=== PATIENT | female | born 1975 | race Caucasian/White ===

== ENCOUNTER 2023-07-11 07:49 | Outpatient (OUT) | payer BC, SELFPAY ==
--- NOTE | 2023-07-11 08:02 | CT_ITS ---
The [address] [address] Patient Name: BENJAMÍN GRIGGS MRN: [id number] date: 1975 Sex: F Assigned Patient Location: CT Current Patient Location: CT Accession/Order Number: [id number] Exam Date: 07/11/2023 08:05 Report Date: 07/11/2023 10:52 At the request of: MIKEY MARAVILLA Procedure: CT chest wo con EXAM: CT chest wo con HISTORY: Pulmonary Nodule R91.1 TECHNIQUE: No IV contrast Dose reduction techniques were achieved by using automated exposure control and/or adjustment of mA and/or kV according to patient size and/or use of iterative reconstruction technique. COMPARISON:CT of the lower chest and abdomen 03/02/2022 FINDINGS: THORACIC INLET: Unremarkable CHEST WALL/AXILLA: No axillary lymphadenopathy HEART: Heart size is normal. The thoracic aorta is normal. No aneurysm. No pericardial effusion. MEDIASTINUM: No significant hilar or mediastinal lymphadenopathy. Incidental calcified mediastinal and left hilar lymph nodes. PLEURAL CAVITY: No pleural effusion or thickening is noted. LUNGS: No lobar consolidation. No groundglass opacities. Incidental scattered calcified granulomas with dominant granuloma left lower lobe subpleural region axial image 70 within central calcification measuring 8 mm benign with no follow-up required. Scattered subpleural pulmonary nodules are noted within the left upper lobe largest axial image 29 solid measures 3 mm. Scattered pulmonary nodules noted left lower lobe subpleural region largest axial image 78 measures 3 mm present previously. VISUALIZED UPPER ABDOMEN: Limited due to lack of intravenous contrast. BONES: No acute findings. CT/CT chest wo con IMPRESSION:Pulmonary nodules as described measuring 3 mm and smaller in size with multiple calcified granulomas noted. Findings likely benign. As per Fleischner criterion in a low-risk patient no follow-up is required. In a high-risk patient an optional CT chest without contrast in one year is recommended Electronically authenticated by: ZAHIDA MERAZ Date: 07/11/2023 10:52
== END 2023-07-11 07:50 | disposition home or self-care (01) ==
LOC: CT 07:51
PROVIDERS: PCP Family Medicine; Visit Provider Family Medicine
DX: R91.1 Solitary pulmonary nodule (principal)
CPT/HCPCS: 71250

== ENCOUNTER 2023-07-13 07:48 | Outpatient (OUT) | payer BC, SELFPAY ==
--- NOTE | 2023-07-13 07:52 | US_ITS ---
The [address] [address] Patient Name: BENJAMÍN GRIGGS MRN: [id number] date: 1975 Sex: F Assigned Patient Location: US Current Patient Location: US Accession/Order Number: [id number] Exam Date: 07/13/2023 08:05 Report Date: 07/13/2023 09:00 At the request of: MIKEY MARAVILLA Procedure: US renal BI EXAM: US renal BI HISTORY: . Kidney Stone N20.0 . COMPARISON: None. TECHNIQUE: Grayscale and color imaging was performed FINDINGS: Scanning of the filled bladder demonstrates no masses. No bladder wall thickening was noted. Bladder volume was 271 cc. Right kidney measures 10.6 x 5.8 x 4.4 cm. Color-flow is noted. No solid renal cortical masses or hydronephrosis is noted. Left kidney measures 11.2 x 4.7 x 6.3 cm. Color-flow is noted. No solid renal cortical masses or hydronephrosis is noted. US/US renal BI IMPRESSION: 1. Normal ultrasound of the kidneys. 2. Normal-appearing bladder. Electronically authenticated by: MIKEY GOMES Date: 07/13/2023 09:00
== END 2023-07-13 07:49 | disposition home or self-care (01) ==
LOC: US 07:48
PROVIDERS: PCP Family Medicine; Visit Provider Family Medicine
DX: N20.0 Calculus of kidney (principal)
CPT/HCPCS: 76775

== ENCOUNTER 2023-10-12 19:02 | Outpatient (REF) | payer OTHER, SELFPAY ==
--- OUTSIDE RECORDS SUMMARY | 2023-10-12 19:05 | XMS_ITS | CCD ---
Author Name Unknown Address [address] [facility] [address] [place] [address] Organization [facility] Care Team Providers Care Clinical Program Director Name Role Phone PHYSICIAN, DEFAULT Unavailable Unavailable PHYSICIAN, DEFAULT Unavailable Unavailable RENITA, DR JENSEN Primary Care Unavailable MICHAEL, DR EMELYN Burns Admitting Unavailable MICHAEL, DR EMELYN Burns Attending Unavailable MICHAEL, DR EMELYN Burns Consulting Unavailable HARLAN HU Consulting Unavailable ABDOULASIGiovana ., DR PERRY Admitting Unavaileneida e KARASIK ., DR PERRY Attending Shilpi MARAVILLA, DR JENSEN Primary Care Unavailable JANES ., DR PERRY Consulting Unavaileneida e TYRESE, DR TUNG Burns Consulting Unavailable KARASIK ., DR PERRY Admitting Unavailabl e KARASIK ., DR PERRY Attending Shilpi MARAVILLA, DR JENSEN Primary Care Unavailable JANES ., DR PERRY Consulting Mikey Layton SAIJ GOMES Attending Unavailable SAJI GOMES Attending Unavailable SAJI GOMES Referring Unavailable Barb Rain Attending Unavailable Mikey Maravilla Referring Unavailable Mikey Maravilla Primary Care Physician [phone] Allergies Allergy Classification Reported Allergen(s) Allergy Type Date of Onset Reaction(s) Facility (4 sources) Omeprazole Drug Allergy did not control heartburn 2021 [employer] Other (4 sources) Seasonal allergy Propensity to adverse reactions Unknown [facility] Other Medications Current Medications Medication Drug Class(es) Dates Sig (Normalized) Sig (Original) amLODIPine 5 mg oral tablet (5 sources) Dihydropyridine Calcium Channel Braeden Start: 10-11-2023 amLODIPine 5 mg Tab Refills(s) 0 Start Date: 10/11/23 Status: Ordered take 1 tablet by mouth once beverly y amLODIPine Besylate 5 MG TAKE 1 TABLET BY MOUTH EVERY DAY Active cetirizine hydrochloride 10 mg oral tablet (4 sources) Histamine-1 Receptor Antagonist take 1 tablet by mouth every twenty-four hours ZyrTEC Allergy 10 MG 1 tablet as needed Orally Once a day prn Active Co-Enzyme Q10 200 MG (1 source) Start: 08-17-20 take 1 capsule by mouth once daily Co-Enzyme Q10 200 MG 1 capsule Orally qd Jul, Active CoQ10 (1 source) Start: 10-11-19 CoQ10 Oral, Daily, Refills(s) 0 Start Date: 10/11/23 Status: Ordered Multi Vitamin+ (1 source) Start: 10-11-19 Multi Vitamin+ Refill(s) 0 Start Date: 10/11/23 Status: Ordered Multivitamin preparation (2 sources) Multivitamin Act aneesh pantoprazole 40 mg delayed release oral tablet (5 sources) Proton Pump Inhibitor Start: 10-11-[address] Tab Refills(s) 0 Start Date: 10/11/23 Status: Ordered take 1 tablet by joe once daily 30 minutes before mealtime Pantoprazole Sodium 40 MG TAKE 1 TABLET BY MOUTH ONCE A DAY 30 MINUTES BEFORE A MEAL for 90 days Active 24 hr propranolol hydrochloride 60 mg extended release oral capsule (3 sources) beta-Adrenergic Braeden Start: 10-11-2023 propra nolol 60 mg Cap-ER Refills(s) 0 Start Date: 10/11/23 Status: Ordered Start: 08-17-2023 take 1 capsule by mo [facility] once daily in the morning Inderal LA 60 MG 1 capsule Orally qd am for 30 days Jul, Active rosuvastatin calcium 5 mg oral tablet (3 sources) HMG-CoA Reductase Inhibitor Start: 10-11-2023 rosuvastatin 5 mg Ta b Refills(s) 0 Start Date: 10/11/23 Status: Ordered Start: 08-17-2023 take 1 tablet by joe every twenty-four hours Rosuvastatin Calcium 5 MG 1 tablet Orally Once a day for 30 days Jul, Active ubidecarenone 200 mg oral capsule (1 source) Start: 08-17-2023 take 1 capsule by mouth every twenty-four hours Co-Enzyme Q10 200 MG 1 capsule Orally qd 30 Nov, 2023 Active Completed/Discontinued Medications Medication Drug Class(es) Dates Sig (Normalized) Sig (Original) cefTRIAXone (4 sources) Cephalosporin Antibacterial Start: 10-30-2019 Rocephin 500 mg Oct, 1 g Problems Active Problems Problem Classification Problem Date Documented Date Episodic/Chronic Calculus of urinary tract (10 sources) Calculus of ureter; Translations: [Personal history of urinary calculi] Onset: 03-04-2022 Episodic Cardiac dysrhythmias (1 source) Palpitations Episodic Deficiency and other anemia (1 source) Anemia, unspecified Episodic Deficiency and other anemia (1 source) Anemia 10-11-2023 Episodic Diabetes mellitus without complication (2 sources) Hyperglycemia, unspecified; Translations: [Hyperglycemia] Episodic Disorders of lipid metabolism (6 sources) Hyperlipidemia; Translations: [Hyperlipidemia, unspecified] Chronic Esophageal disorders (6 sources) Gastro-esophageal reflux disease without esophagitis; Translations: [Gastroesophageal reflux disease] Onset: 03-04-2022 Chronic Essential hypertension (1 source) Hypertensive disorder 10-06-2023 Chronic Genitourinary symptoms and ill-defined conditions (2 sources) Stress incontinence (female) (male); Translations: [Genuine stress incontinence] Onset: 10-11-2023 Chronic Genitourinary symptoms and ill-defined conditions (3 sources) Hematuria, unspecified; Translations: [Microscopic hematuria] Onset: 10-11-2023 Episodic Headache; including migraine (5 sources) Migraine; Translations: [Migraine, unspecified, not intractable, without status migrainosus] Chronic Immunizations and screening for infectious disease (1 source) Encounter for screening for human papillomavirus (HPV); Translations: [ENC SCREENING HUMAN PAPILLOMAVIRUS] Onset: 10-11-2022 Episodic Other aftercare (2 sources) Other detention (current) drug therapy; Translations: [OTH HALF-WAY CURRENT DRUG THERAPY] Onset: 03-04-2022 Episodic Other circulatory disease (2 sources) Elevated blood-pressure reading, without diagnosis of hypertension Episodic Other lower respiratory disease (4 sources) Solitary nodule of lung; Translations: [Solitary pulmonary nodule] Episodic Other lower respiratory disease (2 sources) Solitary pulmonary nodule Episodic Other lower respiratory disease (1 source) Nodule of lung 10-06-2023 Episodic Other nutritional; endocrine; and metabolic disorders (4 sources) Obese class I; Translations: [Body mass index (BMI) 33.0-33.9, adult] Chronic Other nutritional; endocrine; and metabolic disorders (2 sources) Abnormal weight gain Episodic Other screening for suspected conditions (not mental disorders or infectious disease) (8 sources) Encounter for screening mammogram for malignant neoplasm of breast; Translations: [Encounter for screening for malignant neoplasm of cervix] Onset: 10-07-2022 Episodic Residual codes; unclassified (1 source) Family history of malignant neoplasm of breast; Translations: [FAMILY HX MALIG NEOPLASM OF BREAST] Onset: 12-10-2022 Episodic Residual codes; unclassified (1 source) Family history of malignant neoplasm of other organs or systems; Translations: [FAM HX MALIG NEOPLASM OTH ORGN/SYS] Onset: 12-10-2022 Episodic Past or Other Problems Problem Classification Problem Date Documented Da te Episodic/Chronic Abdominal pain (3 sources) Unspecified abdominal pain; Translations: [UNSPECIFIED ABDOMINAL PAIN] Onset: 03-02-2022 Episodic Results Test Name Value Interpretation Reference Range Facil ity RAD - Ultrasound Reporton RAD - Ultrasound Report [id number] [id number] Normal [facility] MG MAMM SCREEN 3D JAMA CADon 12-01-2022 MG MAMM SCREEN 3D JAMA CAD Patient: BENJAMÍN GRIGGS Exam Date: 12/01/2022 : 1975 Gender:F Ordering : DR ORLANDO AKINS . Admission #: Family : Order #: [id number] CLICK HERE TO VIEW EXAM RADIOLOGY REPORT PROCEDURE: MAMMOGRAM SCREENING 3D BILATERAL CAD COMPARISON: MG MAMM SCREEN JAMA W CAD, 11/02/2020. MG MAMM SCREEN JAMA W CAD, 07/11/2019. MG MAMM JAMA SCRN W CAD DIG, 06/15/2015. MG MAMM SCREEN 3D JAMA CAD, 11/19/2021. INDICATIONS: Screening mammography Calculator Name NCI Breast Cancer Risk Assessment Tool 5 Year Breast Cancer Risk 1.10% Lifetime Breast Cancer Risk 11.30% Personal Breast Cancer No Personal Ovarian Cancer No Treatments None Family Cancers Grandmother-paternal with breast cancer at age 60; Grandmother-maternal with melanoma cancer at age 55. LOCATION: [facility] BREAST COMPOSITION: Extremely dense, which lowers the sensitivity of mammography. FINDINGS: DIAGNOSTIC CATEGORY 1--NEGATIVE. RIGHT BREAST: No significant suspicious finding. No significant change has occurred. LEFT BREAST: No significant suspicious finding. No significant change has occurred. RECOMMENDATIONS: ROUTINE MAMMOGRAM AND CLINICAL EVALUATION IN 12 MONTHS. PLEASE NOTE: A NORMAL MAMMOGRAM DOES NOT EXCLUDE THE POSSIBILITY OF BREAST CANCER. A CLINICALLY SUSPICIOUS PALPABLE LUMP SHOULD BE BIOPSIED. Dictated by: Tung St M.D. on 12/01/2022 at 14:08 Approved by: Tung St M.D. on 12/01/2022 at 14:12 Normal [facility] PAP ACOG PANEL 2: 30 to 65on 10-12-2022 . . Normal [facility] Comment on above: Result Comment: Perf ormed at: WB Performed By: #### [id number] #### [facility] [address] [address] [address] Sean Huynh Age Gdln ACOG Testing 30-65 Normal [facility] Comment on above: Performed By: #### [id number] #### [facility] [address] [address] [address] Sean Huynh DIAGNOSIS: Comment Normal [facility] Comment on above: Result Comment: NEGA TIVE FOR INTRAEPITHELIAL LESION OR MALIGNANCY. Performed at: WB Performed By: #### [id number] #### [facility] [address] [address] [address] Sean Huynh HPV Aptima Negative Normal Negative [facility] Comment on above: Result Comment: This nucleic acid amplification test detects fourteen high-risk HPV types (16,18,31,33,35,39,45,51,52,56,58,59,66,68) without differentiation. Performed at: =G Performed By: #### [id number] #### [facility] [address] [address] [address] Sean Huynh HPV Genotype Reflex Comment Normal [facility] Comment on above: Result Comment: Crit eria not met, HPV Genotype not performed. Performed at: WB Performed By: #### [id number] #### [facility] [address] [address] [address] Sean Huynh Methodology: Comment Normal [facility] Comment on above: Result Comment: This liquid based ThinPrep(R) pap test was screened with the use of an image guided system. Performed at: WB Performed By: #### [id number] #### [facility] [address] [place] [address] Dr. Sean Huynh Note: Comment Normal [facility] Comment on above: Result Comment: The Pap smear is a screening test designed to aid in the detection of premalignant and malignant conditions of the uterine cervix. It is not a diagnostic procedure and should not be used as the sole means of detecting cervical cancer. Both false-positive and false-negative reports do occur. . Performed at: WB Performed By: #### [id number] #### [facility] [address] [place] [address] Dr. Sean Huynh Performed by: Comment Normal [facility] Comment on above: Result Comment: Mariangel Blancas, Painter Decorator (ASCP) Performed at: WB Performed By: #### [id number] #### [facility] [address] [place] [address] Dr. Sean Huynh Specimen adequacy: Comment Normal [facility] Comment on above: Result Comment: Sati sfactory for evaluation. No endocervical component is identified. Performed at: WB Performed By: #### [id number] #### [facility] [address] [place] [address] ABD/PELVIS WO CONon 03-03 CT ABD/PELVIS WO CON EXAM: CT abdomen and Pelvis without contrast dated 03/02/2022 9:36 PM EDT HISTORY: 46 years old Female with left flank pain. Nausea and vomiting. COMPARISON STUDY: None available at time of dictation. TECHNIQUE: Multidetector spiral CT of the abdomen and pelvis was performed from lung bases to pubic symphysis. Imaging was performed without IV contrast. Axial, coronal and sagittal multiplanar reformats were obtained from the axial data set by the technologist. Dose reduction techniques were achieved by using automated exposure control and/or adjustment of mA and/or kV according to patient size and/or use of iterative reconstruction technique. FINDINGS: Evaluation of solid organs is limited due to lack of intravenous contrast use. Lung Bases: Calcified sequela of prior granulomatous disease. Minimal bibasilar atelectatic changes are noted. 2 mm nodular foci on image 9 and 19 of series 3 along the left pleural surface suggests atelectasis. Nodules are felt to be less likely. Similar 2 mm nodule on image 17 of series 3 on the left posteriorly. If indicated consider follow-up per Fleischner criteria. Liver: The liver is normal in size. No focal lesions. Gallbladder and Biliary Tree: Unremarkable Spleen: Unremarkable Pancreas: The pancreas is grossly normal in appearance. Although no significant surrounding inflammation or edema is identified, trace adjacent haziness may be present on images 35 through 41 series 3. This may be partially due to volume averaging or artifact however, consider serum lipase correlation for very subtle or early pancreatitis. Adrenal Glands: Unremarkable Kidneys: Bladder is mildly thickened. The right kidney demonstrates no hydronephrosis. There is no evidence of nephrolithiasis in the right kidney. Lack of intravenous contrast lowers sensitivity however, no definite focal lesion is seen. Left kidney demonstrates moderate hydroureteronephrosis. There is perinephric and periureteric edema noted on the left. Prominence of the left ureter can be seen on images 78 through 118 series 3 and extends to the ureterovesicular junction where there is a stone noted measuring approximately 3 mm at the terminal ureter/UVJ. Bowel: The stomach is grossly normal in appearance. Small bowel and colon are normal in caliber and distribution. The appendix is normal without findings of acute appendicitis identified. Stool is noted in the colon. Slightly thickened or underdistended enteric bowel is noted in the left abdomen, which may be partially due to peristalsis however mild enteritis of infectious or inflammatory etiology is a diagnostic consideration. Abdominal Wall and Mesentery: Unremarkable. Vasculature: The visualized abdominal aorta is normal in size and caliber. Evaluation of abdominal and pelvic vessels is limited due to lack of intravenous contrast. Pelvic Organs: Surgically absent. Nonspecific calcification noted on image 139 series 3 in the left anterior pelvic region. Post surgical changes overlie the ventral pelvic wall. Musculoskeletal: No aggressive focal bony lesions, acute fractures or dislocation. Mild annular calcification at L5-S1 posteriorly. There is a leftward scoliosis noted to the lumbar spine centered at approximately L4 and a rightward compensatory curvature at the thoracolumbar junction. IMPRESSION: Acute obstructive uropathy on the left secondary to a 3 mm stone at the ureterovesicular junction/terminal ureter. Consider laboratory correlation for infection and urological consultation. Mild infectious or inflammatory enteritis may be present as above. Nonacute findings as noted Electronically authenticated by: HARLAN HU Date: 2022-03-02 23:28 Normal [facility] CBC AUTO DIFFon 03-02-2022 BASO # 0.1 103/ul Normal 0.0-0.1 [facility] Comment on above: Performed By: #### C BC #### [facility] [address] [place] [address] Dr. Sean Huynh Basophils/100 WBC (Bld) 0.8 % Normal 0.2-2.0 [facility] Comment on above: Performed By: #### C BC #### [facility] [address] [place] [address] Dr. Sean Huynh EO # 0.1 103/ul Normal 0.0-0.7 [facility] Comment on above: Performed By: #### C BC #### [facility] [address] [place] [address] Dr. Sean Huynh Eosinophils/100 WBC (Bld) 1.3 % Normal 0.9-7.0 [facility] Comment on above: Performed By: #### C BC #### [facility] [address] [place] [address] Dr. Sean Huynh Erythrocyte distribution width (RBC) [Ratio] 12.5 % Normal 11.0-15.0 [facility] Comment on above: Performed By: #### C BC #### [facility] [address] [place] [address] Dr. Sean Huynh Hematocrit (Bld) [Volume fraction] 37.4 % Normal 36.0-48.0 [facility] Comment on above: Performed By: #### C BC #### [facility] [address] [place] [address] Dr. Sean Huynh Hemoglobin (Bld) [Mass/Vol] 12.6 g/dL Normal 12.0-16.0 [facility] Comment on above: Performed By: #### C BC #### [facility] [address] [place] [address] Dr. eSan Huynh IG # 0.02 10e3/ul Normal 0.00-0.03 [facility] Comment on above: Performed By: #### C BC #### [facility] [address] [place] [address] Dr. Sean Huynh IG % 0.3 % Normal 0.0-0.5 [facility] Comment on above: Performed By: #### C BC #### [facility] [address] [place] [address] Dr. Sean Huynh LYMPH # 2.4 103/ul Normal 1.2-3.8 [facility] Comment on above: Performed By: #### C BC #### [facility] [address] [place] [address] Dr. Sean Huynh Lymphocytes/100 WBC (Bld) 31.6 % Normal 20.5-60.0 [facility] Comment on above: Performed By: #### C BC #### [facility] [address] [place] [address] Dr. Sean Huynh MANUAL DIFF REQ NO Normal [facility] Comment on above: Performed By: #### C BC #### [facility] [address] [place] [address] Dr. Sean Huynh MCH (RBC) [Entitic mass] 29.8 pg Normal 26.7-34.0 [facility] Comment on above: Performed By: #### C BC #### [facility] [address] [place] [address] Dr. Sean Huynh MCHC (RBC) [Mass/Vol] 33.7 g/dL Normal 29.9-35.2 [facility] Comment on above: Performed By: #### C BC #### [facility] [address] [place] [address] Dr. Sean Huynh MCV (RBC) [Entitic vol] 88.4 fL Normal 81.0-99.0 [facility] Comment on above: Performed By: #### C BC #### [facility] [address] [place] [address] Dr. Sean Huynh MONO # 0.8 103/ul Normal 0.3-0.8 [facility] Comment on above: Performed By: #### C BC #### [facility] [address] [place] [address] Dr. Sean Huyhn Monocytes/100 WBC (Bld) 10.0 % Normal 1.7-12.0 [facility] Comment on above: Performed By: #### C BC #### [facility] [address] [place] [address] Dr. Sean Huynh NEUT # 4.3 103/ul Normal 1.4-6.5 [facility] Comment on above: Performed By: #### C BC #### [facility] [address] [place] [address] Dr. Sean Huynh Neutrophils/100 WBC (Bld) 56.0 % Normal 43.0-75.0 [facility] Comment on above: Performed By: #### C BC #### [facility] [address] [place] [address] Dr. Sean Huynh Platelet mean volume (Bld) [Entitic vol] 10.5 fL Normal 9.5-13.5 [facility] Comment on above: Performed By: #### C BC #### [facility] [address] [place] [address] Dr. Sean Huynh PLT 321 103/ul Normal 150-450 [facility] Comment on above: Performed By: #### C BC #### [facility] [address] [place] [address] Dr. Sean Huynh RBC 4.23 106/ul Normal 4.20-5.40 [facility] Comment on above: Performed By: #### C BC #### [facility] [address] [place] [address] Dr. Sean Huynh WBC 7.7 103/ul Normal 4.0-11.0 [facility] Comment on above: Performed By: #### C BC #### [facility] [address] [place] [address] Dr. Sean Huynh ER URINE PROFILEon 2 Bilirubin Ql (U) Negative Normal NEGATIVE The [facility] Comment on above: Performed By: #### E RUR #### [facility] [address] [place] [address] Dr. Sean Huynh Clarity (U) CLEAR Normal CLEAR [facility] Comment on above: Performed By: #### E RUR #### [facility] [address] [place] [address] Dr. Sean Huynh Color (U) LT. YELLOW Normal YELLOW [facility] Comment on above: Performed By: #### E RUR #### [facility] [address] [place] [address] Dr. Sean MCMAHON A micrscopic examination will be performed if indicated. Normal [facility] Comment on above: Performed By: #### E RUR #### [facility] [address] [place] [address] Dr. Sean Huynh Glucose Ql (U) Negative Normal NEGATIVE [facility] [place] Comment on above: Performed By: #### E RUR #### [facility] [address] [place] [address] Dr. Sean Huynh Hemoglobin Ql (U) Negative Normal NEGATIVE [facility] Comment on above: Performed By: #### E RUR #### [facility] [address] [place] [address] Dr. Sean Huynh Ketones Ql (U) Negative Normal NEGATIVE [facility] Comment on above: Performed By: #### E RUR #### [facility] [address] [place] [address] Dr. Sean Huynh LEUKOCYTES Negative Normal NEGATIVE [facility] Comment on above: Performed By: #### E RUR #### [facility] [address] [place] [address] Dr. Sean Huynh Nitrite Ql (U) Negative Normal NEGATIVE [facility] Comment on above: Performed By: #### E RUR #### [facility] [address] [place] [address] Dr. Sean Huynh pH (U) 7.0 [pH] Normal 5-9 [facility] Comment on above: Performed By: #### E RUR #### [facility] [address] [place] [address] Dr. Sean Huynh SPEC GRAVITY 1.015 Normal 1.005-<=1.025 [facility] Comment on above: Performed By: #### E RUR #### [facility] [address] [place] [address] Dr. Sean Huynh UA PROTEIN Negative Normal NEGATIVE/ TRACE [facility] Comment on above: Performed By: #### E RUR #### [facility] [address] [place] [address] Dr. Sean Huynh UR MICRO IND NOT INDICATED Normal [facility] Comment on above: Performed By: #### E RUR #### [facility] [address] [place] [address] Dr. Sean Huynh Urobilinogen Qn (U) 0.2 {Soumya'U}/dL Normal 0.2 - 1.0 [facility] Comment on above: Performed By: #### E RUR #### [facility] [address] [place] [address] Dr. Sean Huynh PROF 14(COMP METB)on 022 Albumin [Mass/Vol] 4.0 g/dL Normal 3.4-5.0 [facility] Comment on above: Performed By: #### C MP #### [facility] [address] [place] [address] Dr. Sean Huynh Albumin/Globulin [Mass ratio] 1.0 {ratio} Normal [facility] Comment on above: Performed By: #### C MP #### [facility] [address] [place] [address] Dr. Sean Huynh ALP [Catalytic activity/Vol] 100 U/L Normal 46-116 [facility] Comment on above: Performed By: #### C MP #### [facility] [address] [place] [address] Dr. Sean Huynh ALT [Catalytic activity/Vol] 27 U/L Normal 14-59 [facility] Comment on above: Performed By: #### C MP #### [facility] [address] [place] [address] Dr. Sean Huynh Anion gap [Moles/Vol] 14.4 mmol/L Normal [facility] Comment on above: Performed By: #### C MP #### [facility] [address] [address] [address] Sean Huynh AST [Catalytic activity/Vol] 17 U/L Normal 15-37 [facility] Comment on above: Performed By: #### C MP #### [facility] [address] [address] [address] Sean Huynh Bilirubin [Mass/Vol] 0.3 mg/dL Normal 0.2-1.0 [facility] Comment on above: Performed By: #### C MP #### [facility] [address] [address] [address] Sean Hyunh Calcium [Mass/Vol] 9.2 mg/dL Normal 8.5-10.1 [facility] Comment on above: Performed By: #### C MP #### [facility] [address] [address] [address] Sean Huynh Chloride [Moles/Vol] 102 mmol/L Normal 98-107 [facility] Comment on above: Performed By: #### C MP #### [facility] [address] [address] [address] Sean Huynh CO2 [Moles/Vol] 25.9 mmol/L Normal 21.0-32.0 [facility] Comment on above: Performed By: #### C MP #### [facility] [address] [address] [address] Sean Huynh Creatinine [Mass/Vol] 0.80 mg/dL Normal 0.55-1.02 [facility] Comment on above: Performed By: #### C MP #### [facility] [address] [address] [address] Sean Huynh EGFR-AF TURKS AND CAICOS ISLANDER >60 Normal >=60 [facility] Comment on above: Performed By: #### C MP #### [facility] [address] [address] [address] Sean Huynh EGFR-NON AF TURKS AND CAICOS ISLANDER >60 Normal >=60 [facility] Comment on above: Performed By: #### C MP #### [facility] [address] [address] [address] Sean Huynh Globulin (S) [Mass/Vol] 4.0 g/dL Normal [facility] Comment on above: Performed By: #### C MP #### [facility] [address] [address] [address] Sean Huynh Glucose [Mass/Vol] 115 mg/dL Critically high 74-106 [facility] Comment on above: Performed By: #### C MP #### [facility] [address] [address] [address] Sean Huynh Potassium [Moles/Vol] 3.3 mmol/L Critically low 3.5-5.1 [facility] Comment on above: Performed By: #### C MP #### [facility] [address] [place] [address] Dr. Sean Huynh Protein [Mass/Vol] 8.0 g/dL Normal 6.4-8.2 [facility] Comment on above: Performed By: #### C MP #### [facility] [address] [address] [address] Sean Huynh Sodium [Moles/Vol] 139 mmol/L Normal 136-145 [facility] Comment on above: Performed By: #### C MP #### [facility] [address] [place] [address] Dr. Sean Huynh Urea nitrogen [Mass/Vol] 11.0 mg/dL Normal 7.0-18.0 [facility] Comment on above: Performed By: #### C MP #### [facility] [address] [address] [address] Sean Huynh Urea nitrogen/Creatinin e [Mass ratio] 13.8 mg/mg Normal [facility] Comment on above: Performed By: #### C MP #### [facility] [address] [place] [address] Dr. Sean Huynh Vital Signs Date Time Vital Sign Value Performing Clinician Facility 10-11-2023 09:44-0500 Diastolic blood pressure 90 mm[Hg] Barb Rain [facility] 10-11-2023 09:44-0500 Mean blood pressure 111 mm[Hg] Barb Lue [facility] 10-11-2023 09:44-0500 Systolic blood pressure 152 mm[Hg] Barb Lue [facility] 10-11-2023 09:15-0500 Blood Pressure Location Barb Lue [facility] 10-11-2023 09:15-0500 Diastolic blood pressure 98 mm[Hg] Barb Lue [facility] 10-11-2023 09:15-0500 Heart rate 78 /min Barb Lue [facility] 10-11-2023 09:15-0500 Respiratory rate 16 /min Barb Lue [facility] 10-11-2023 09:15-0500 Systolic blood pressure 157 mm[Hg] Barb Lue [facility] 08-17-2023 12:30-0500 Body height 165.1 cm Mikey Maravilla Other [employer] [facility] Other 08-17-2023 12:30-0500 Body mass index (BMI) [Ratio] 36.02 kg/m2 Mikey Maravilla Other [employer] Other 08-17-2023 12:30-0500 Body temperature 99.3 [degF] Mikey Maravilla Other [employer] Other 08-17-2023 12:30-0500 Body weight 98.2 kg Mikey Maravilla Other [employer] Other 08-17-2023 12:30-0500 Diastolic blood pressure 100 mm[Hg] Mikey Maravilla Other [employer] Other 08-17-2023 12:30-0500 Respiratory rate 18 /min Mikey Maravilla Other [employer] Other 08-17-2023 12:30-0500 SaO2% (BldA) [Mass fraction] 98 % Mikey Maravilla Other [employer] Other 08-17-2023 12:30-0500 Systolic blood pressure 148 mm[Hg] Mikey Maravilla Other [employer] Other 06-27-2023 09:50-0400 Body height 165.1 cm Mikey Maravilla Other [employer] Other 06-27-2023 09:50-0400 Body mass index (BMI) [Ratio] 35.86 kg/m2 Mikey Maravilla Other [employer] Other 06-27-2023 09:50-0400 Body temperature 98 [degF] Mikey Maravilla Other [employer] Other 06-27-2023 09:50-0400 Body weight 97.75 kg Mikey Maravilla Other [employer] Other 06-27-2023 09:50-0400 Diastolic blood pressure 104 mm[Hg] Mikey Maravilla Other [employer] Other 06-27-2023 09:50-0400 Respiratory rate 18 /min Mikey Maravilla Other [employer] Other 06-27-2023 09:50-0400 SaO2% (BldA) [Mass fraction] 98 % Mikey Maravilla Other [employer] Other 06-27-2023 09:50-0400 Systolic blood pressure 160 mm[Hg] Mikey Maravilla Other [employer] Other Encounters Encounter Date Encounter Type Care Provider Facility Start: 10-11-2023 ambulatory Barb Rain Facility:[facility] Start: 10-11-2023 End: 10-11-2023 Patient encounter procedure Barb MathewsTeena Sandovalgeovany [facility] Start: 10-05-2023 End: 10-05-2023 ambulatory Mikey Maravilla Other [employer] Other Start: 10-05-2023 Telephone encounter Mikey Maravilla [facility] Start: 09-14-2023 End: 09-14-2023 ambulatory SAJI A BROWN Not Available Start: 08-31-2023 End: 08-31-2023 ambulatory SAJI A BROWN Not Available Start: 08-31-2023 End: 08-31-2023 ambulatory SAJI A BROWN Not Available Start: 08-28-2023 ambulatory Barb Rain Facility:[facility] Start: 08-17-2023 End: 08-17-2023 ambulatory Mikey Maravilla Other [employer] Other Start: 08-17-2023 Office outpatient vi sit 25 minutes [facility]av[facility] Start: 07-14-2023 End: 07-14-2023 ambulatory Mikey Maravilla Other [employer] Other Start: 07-14-2023 Telephone encounter [facility] Start: 06-27-2023 End: 06-27-2023 ambulatory Mikey Maravilla Other [employer] Other Start: 06-27-2023 Encounter for genera l adult medical examination without abnormal findings Mikey Maravilla [facility] Start: 06-27-2023 Periodic preventive med est patient 40-64yrs Mikey Maravilla [facility] Start: 12-01-2022 End: 12-02-[address] ORLANDO AKINS . Facility:[facility] Start: 10-07-2022 End: 10-07-[address] ORLANDO AKINS . Facility:[facility] Start: 03-02-2022 End: 03-03-[address] MIKEY MARAVILLA Facility:[facility] Start: 07-04-2017 End: 07-05-2017 Ambulatory DEFAULT PHYSICIAN Facility:[facility] Procedures Date Procedure Procedure Detail Performing Clinician Hysterectomy Barb Lue Immunizations Immunization Date Immunization Notes Care Provider Fa cility 07-08-2023 Flu Shot - Documentation Purposes Only Mikey Maravilla Other [employer] Other 07-08-2023 influenza virus vaccine, unspecified formulation Barb Lue [facility] 07-09-2022 influenza virus vaccine, unspecified formulation Barb Lue [facility] 01-21-2021 COVID-19 Vaccine Moderna - Documentation Purposes Only Mikey Maravilla Other [facility] Comment on above: Result Comment: 2023: 39 12-24-2020 COVID-19 Vaccine Moderna - Documentation Purposes Only Mikey Maravilla Other [facility] Comment on above: Result Comment: 2023: 39 07-17-2020 influenza virus vaccine, unspecified formulation Barb Lue [facility] 07-17-2020 influenza, seasonal, injectable Mikey Maravilla Other [facility] Other 07-13-2019 influenza virus vaccine, unspecified formulation Barb Lue [facility] 07-16-2018 influenza, seasonal, injectable Mikey Maravilla Other [employer] Other 07-15-2017 influenza virus vaccine, unspecified formulation Barb Lue [facility] 07-15-2017 influenza, seasonal, injectable Mikey Maravilla Other [facility] Other 07-16-2016 influenza virus vaccine, unspecified formulation Barb Lue [facility] 07-16-2016 influenza, seasonal, injectable Mikey Maravilla Other [employer] Other 07-21-2014 influenza virus vaccine, unspecified formulation Barb Lue [facility] 07-05-2013 influenza, seasonal, injectable, preservative free Mikey Maravilla Other [employer] Other 07-05-2012 influenza, seasonal, injectable, preservative free Mikey Maravilla Other [employer] Other Payers Date Payer Category Payer Unknown [id number] 2.16.84 [id number] 1974 Unknown [id number] 2.16.84 [id number] 1974 Unknown [id number] 2.16.84 [id number] 1974 Unknown [id number] 1974 Unknown [id number] 1974 Unknown [id number] 1974 Unknown [id number] 2.16.8 [id number] 1959 Unknown [id number] Unknown Social History Date Type Detail Facility Unknown if ever smoked [facility] Other Sex Assigned At [facility] Start: 10-11-2023 Tobacco smoking status Never s moked tobacco (finding) [facility] Tobacco smoking status Never [facility] Functional Status Date Assessment Result Facility 10-11-2023 Functional Status N/A [facility] Hospital Discharge instructions 10-11-2023 Note Date & Type Note Facility 10-11-2023 Hospital Discharg e instructions Patient Education 10/11/2023 10:36:00 Dietary Guidelines to Help Prevent Kidney Stones Dietary Guidelines to Help Prevent Kidney Stones Kidney stones are deposits of minerals and salts that form inside your kidneys. Your risk of developing kidney stones may be greater depending on your diet, your lifestyle, the medicines you take, and whether you have certain medical conditions. Most people can lower their risks of developing kidney stones by following these dietary guidelines. Your dietitian may give you more specific instructions depending on your overall health and the type of kidney stones you tend to develop. What are tips for following this plan? Reading food labels Choose foods with no salt added or low-salt labels. Limit your salt (sodium) intake to less than 1,500 mg a day. Choose foods with calcium for each meal and snack. Try to eat about 300 mg of calcium at each meal. Foods that contain 200 500 mg of calcium a serving include: ?8 oz (237 mL) of milk, uanawop-wnvagnytjmjl-tzjfr milk, and calcium-fortifiedfruit juice. Calcium-fortified means that calcium has been added to these drinks. ?8 oz (237 mL) of kefir, yogurt, and soy yogurt. ?4 oz (114 g) of tofu. ?1 oz (28 g) of cheese. ?1 cup (150 g) of dried figs. ?1 cup (91 g) of cooked broccoli. ?One 3 oz (85 g) can of sardines or mackerel. Most people need 1,000 1,500 mg of calcium a day. Talk to your dietitian about how much calcium is recommended for you. Shopping Buy plenty of fresh fruits and vegetables. Most people do not need to avoid fruits and vegetables, even if these foods contain nutrients that may contribute to kidney stones. When shopping for convenience foods, choose: ?Whole pieces of fruit. ?Pre-made salads with dressing on the side. ?Low-fat fruit and yogurt smoothies. Avoid buying frozen meals or prepared deli foods. These can be high in sodium. Look for foods with live cultures, such as yogurt and kefir. Choose high-fiber grains, such as whole-wheat breads, oat bran, and wheat cereals. Cooking Do not add salt to food when cooking. Place a salt shaker on the table and allow each person to add their own salt to taste. Use vegetable protein, such as beans, textured vegetable protein (TVP), or tofu, instead of meat in pasta, casseroles, and soups. Meal planning Eat less salt, if told by your dietitian. To do this: ?Avoid eating processed or pre-made food. ?Avoid eating fast food. Eat less animal protein, including cheese, meat, poultry, or fish, if told by your dietitian. To do this: ?Limit the number of times you have meat, poultry, fish, or cheese each week. Eat a diet free of meat at least 2 days a week. ?Eat only one serving each day of meat, poultry, fish, or seafood. ?When you prepare animal proteins, cut pieces into small portion sizes. For most meat and fish, one serving is about the size of the palm of your hand. Eat at least five servings of fresh fruits and vegetables each day. To do this: ?Keep fruits and vegetables on hand for snacks. ?Eat one piece of fruit or a handful of berries with breakfast. ?Have a salad and fruit at lunch. ?Have two kinds of vegetables at dinner. You may be told to limit foods that are high in a substance called oxalate. These include: ?Spinach (cooked), rhubarb, beets, sweet potatoes, and B[place]ian chard. ?Peanuts. ?Potato chips, cook islander fries, and baked potatoes with skin on. ?Nuts and nut products. ?Chocolate. If you regularly take a diuretic medicine, make sure to eat at least 1 or 2 servings of fruits or vegetables that are high in potassium each day. These include: ?Avocado. ?Banana. ?[place], prune, carrot, or tomato juice. ?Baked potato. ?Cabbage. ?Beans and split peas. Lifestyle Drink enough fluid to keep your urine pale yellow. This is the most important thing you can do. Spread your fluid intake throughout the day. If you drink alcohol: ?Limit how much you have to: ?0 1 drink a day for women who are not . ?0 2 drinks a day for men. ?Know how much alcohol is in your drink. In the [place] one drink equals one 12 oz bottle of beer (355 mL), one 5 oz glass of wine (148 mL), or one 1 oz glass of hard liquor (44 mL). Lose weight if told by your health care provider. Work with your dietitian to find an eating plan and weight loss strategies that work best for you. General information Talk to your health care provider and dietitian about taking daily supplements. Depending on your health and the cause of your kidney stones, you may be told: ?Do not take high-dose supplements of vitamin C (1,000 mg a day or more). ?To take a calcium supplement. ?To take a daily probiotic supplement. ?To take other supplements such as magnesium, fish oil, or vitamin B6. Take mhdf-mgv-wrkdprf and prescription medicines only as told by your health care provider. These include supplements. What foods should I limit? Limit your intake of the following foods, or eat them as told by your dietitian. Vegetables Spinach. Rhubarb. Beets. Canned vegetables. Pickles. Olives. Baked potatoes with skin. Grains Wheat bran. Baked goods. Salted crackers. Cereals high in sugar. Meats and other proteins Nuts. Nut butters. Large portions of meat, poultry, or fish. Salted, precooked, or cured meats, such as sausages, meat loaves, and hot dogs. Dairy Cheeses. Beverages Regular soft drinks. Regular vegetable juice. Seasonings and condiments Seasoning blends with salt. Salad dressings. Soy sauce. Ketchup. Barbecue sauce. Other foods Canned soups. Canned pasta sauce. Casseroles. Pizza. Lasagna. Frozen meals. Potato chips. [place] fries. The items listed above may not be a complete list of foods and beverages you should limit. Contact a dietitian for more information. What foods should I avoid? Talk to your dietitian about specific foods you should avoid based on the type of kidney stones you have and your overall health. Fruits Grapefruit. The item listed above may not be a complete list of foods and beverages you should avoid. Contact a dietitian for more information. Summary Kidney stones are deposits of minerals and salts that form inside your kidneys. You can lower your risk of kidney stones by making changes to your diet. The most important thing you can do is drink enough fluid. Drink enough fluid to keep your urine pale yellow. Talk to your dietitian about how much calcium you should have each day, and eat less salt and animal protein as told by your dietitian. This information is not intended to replace advice given to you by your health care provider. Make sure you discuss any questions you have with your health care provider. Document Revised: 12/15/2022 Document Reviewed: 12/15/2022 [employer] Patient Education 2022 [employer]. Follow Up Care 08/28/2023 13:50:06 With:Koffi PADRON, Barb Salomon, URL, URO Address: When: Unknown Comments:Schedule cysto [facility] Evaluation note 08-17-2023 Note Date & Type Note Facility 08-17-2023 Evaluation note Encounter Date Diagnosis Assessment Notes Jul, Hyperlipidemia, unspecified hyperlipidemia type (ICD-10 - E78.5) Discussed cholesterol results with patient today. Total is 220. HDL is 45. LDL is 145. Triglycerides are 148. VLDL is 30. Her readings are not where we would like to see them. I did recommend that she take a statin medication to help improve her readings. We discussed her making dietary and lifestyle changes to help improve her readings. She is in agreement to taking a statin. Will start her on a low dose and can titrate the dose if needed. Begin Co-Q-10 to help with any aches and pains she may have due to the statin. Statin medication can amplify normal aches and pains. Six to eight weeks after starting the medication she needs to have lab drawn to be sure medication is not affecting her liver or kidneys. Return in three months. Jul, Elevated blood pressure (ICD-10 - R03.0) Her readings in the office are elevated today. She did present with blood pressure readings that she has taken on her own. She takes her medication in the afternoon every day. She voices that her blood pressure was elevated when she was seen at Dr. Reyes's office. I suspect that she can make her blood pressure go up on her own just by thinking about it. Her kidney studies are good at this time. We discussed adding a beta braeden in addition to the Amlodipine. Guidance is given on how to take the medication. She admits to having some underlying anxiety/stress and is told that the beta braeden can help keep her calm. She may notice a lower pulse once she starts this medication. I did recommend that she take the Inderal LA in the morning. Jul, Hyperglycemia (ICD-10 - R73.9) Discussed blood sugar results with patient today. Glucose is 105. I would like to order an A1C to see what her blood sugar level has been over the previous three months. She can call for the results. Jul, Hematuria (ICD-10 - R31.9) Her urine had blood in it when checked. She did have a hysterectomy. She had a renal ultrasound done on 07-13-23 which was reviewed today. I did recommend that she see a urologist to rule out abnormalities due to having blood in her urine. She agrees and a referral is provided. Jul, Weight gain (ICD-10 - R63.5) Her TSH is 3.300. She voices that it is difficult for her to lose weight since she had her hysterectomy. She is hungry all the time. We discussed diet today and that she should eat more protein and dark green vegetables. She does not qualify for medication like Adipex due to her blood pressure. She should work on lifestyle changes that she can continue with. Jul, Renal calculi (ICD-10 - N20.0) Renal ultrasound on 07-13-23 was reviewed. When she had her previous kidney stone she passed it in the middle of the night and she never had an issue again. Jul, Lung nodule seen on imaging study (ICD-10 - R91.1) She saw Dr. Reyes for evaluation, he told her that the soil and dirt here in [place] is very dirty. [place] and he felt this explained her nodule and told her that it was calcified and she was fine . She does not need to return to see him unless needed. Jul, Other detention (current) drug therapy (ICD-10 - Z79.899) Jul, Other Magnesium level was 1.9. [employer] Other Evaluation note 06-27-2023 Note Date & Type Note Facility 06-27-2023 Evaluation note Encounter Date Diagnosis Assessment Notes Jun, Elevated blood pressure reading (ICD-10 - R03.0) Her blood pressure is not controlled in the office today at 160/104 and 168/108. She admits that she gets very nervous when she comes to the doctors office. I did ask her to return for a nurse visit to have her blood pressure checked and then the same day will have her go home and check her blood pressure with her home machine. If her home machine is accurate then I want her to begin checking her blood pressure on her own and track readings. She is to call me with several readings and then based on those we will deterimine if her dose of medication needs to be increased. Jun, Wellness examination (ICD-10 - Z00.00) Jun, GERD (gastroesopha geal reflux disease) (ICD-10 - K21.9) She did try Omeprazole last year (2021) for 5-6 days because it was cheaper on her drug plan and it caused her to have severe heart burn so she was not able to tolerate this. She was able to return to taking the Pantoprazole and her symptoms are controlled with this medication. She read that she may need to replace vitamins because of taking the Pantoprazole daily. I did explain to her that we will order blood work which will indicate if she has a B12 or Iron deficiency. She eats meat regularly. She can take a [place] vitamin daily. Jun, Weight gain (ICD-10 - R63.5) Jun, Migraine (ICD-10 - G43.909) She voices that since she started the Amlodipine she has not had any migraines. She voices that she had been unable to figure out what was causing her migraines, and was even logging what she was eating etc and could not come up with what was causing these. Since starting the medication her migraines resolved. Jun, Renal calculi (ICD-10 - N20.0) She voices that in 2021 she was seen in the ER for evaluation of a kidney stone. She was able to pass this on her own. She did not collect the stone. She did not see a urologist. She had a kidney stone 25 years ago and had not had one until last summer so since she did not have them regularly she did not feel she needed to be seen by urology. Her CT scan of the abdomen and pelvis (03-02-22) showed left kidney had moderate hydroureteronephrosis and perinephric and periureteric edema. I did recommend she have a renal ultrasound done to re-evaluate this. Jun, Lung nodule seen on imaging study (ICD-10 - R91.1) Her CT scan done 03-02-22 showed calcified sequela of prior granulomatous disease. 2 mm nodular foci along left pleural surface suggests atelectasis. nodules are felt to be less likely, similar 2 mm nodule on the left posteriorly. I did recommend that she have a CT scan of the chest without contrast and then follow up with a production line welder. She has never been a smoker. Will refer her to Dr. Reyes for evaluation. She is agreeable to the referral. Jun, Anemia (ICD-10 - D64.9) She voices that she has not felt poorly since she had her hysterectomy. Jun, Palpitation (ICD-10 - R00.2) Will order a magnesium level. Jun, Other Provided her with a note stating she was seen in the office today 06-27-23. 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 Akins / still has b/l ovaries 10-07-2019 Hospitalization History No know Hospital ization history [facility] Other Hospital course Narrative Note Date & Type Note Facility Hospital course Narrative No data available for this section [facility] [employer] Progress note Note Date & Type Note Facility Progress note No data available for this section [facility] [employer] Summary Purpose Family History No Family History Records FoundNo Family History Records FoundNo Family History Records FoundNo Family History Records Found No data available for this section Advance Directives No Advanced Directives Records FoundNo Advanced Directives Records FoundNo Advanced Directives Records FoundNo Advanced Directives Records Found Reason for Referral Reason appt pt needs cons ult to discuss abnormal findings on CT scan 03/02/22 and will have repeat CT of chest done Diagnosis 1 Lung nodule seen on imaging study (R91.1) Referral Organization [facility] [place] Referring Provider First Name Mikey Referring Provider Last Name Renita Referring Provider Specialty Family Prac dragan Referred Organization [facility] Referred Provider Corby Reyes Referred Address [address] [place], [place],[address] Referred Provider Specialty Pulmonary Di seases Referral Priority Routine General Notes Nieves Barry 06/27/2023 11:00:05 AM > referral faxed thru [facility] with visit note, CT chest from 2021 and insurance card. pt understands she will be contacted to schedule this appt. Reason appt pt needs cons ult to evaluate hematuria Diagnosis 1 Hematuria (R31.9) Referral Organization [facility] Vanesa Lopez Referring Provider First Name Mikey Referring Provider Last Name Renita Referring Provider Specialty Family Prac dragan Referred Organization [facility] Referred Provider BARB RANI Referred Address [address] [facility] [place] Referred Provider Specialty Urology Referral Priority Routine General Notes Nieves Barry 08/17/2023 01:16:43 PM > referral faxed thru [facility] with visit note, [facility] lab and insurance card. pt understands she will be contacted to schedule this appt. Additional Source Comments INFORMATION SOURCE (unrecogn ized section and content) DATE CREATED AUTHOR 03/13/2018 [facility] DATE CREATED AUTHOR AUTHOR'S ORGANIZ ATION 12/11/2022 [facility] DATE CREATED AUTHOR AUTHOR'S ORGANIZ ATION 09/16/2023 [facility] EPIC DATE CREATED AUTHOR AUTHOR'S ORGANIZ ATION 09/16/2023 [facility] REASON FOR VISIT (unrecogniz ed section and content) yearly check upClinicalrevie w labsClinical Patient Care team informatio n (unrecognized section and content) Personnel Name: Mikey Maravilla DO Address: Address: [address] [place] [address], [facility], [place] [address] FOR RECORDS PERTAINING TO PATIENTS WHO ARE OR HAVE BEEN ENROLLED IN A CHEMICAL DEPENDENCY/SUBSTANCEABUSE PROGRAM, SOME INFORMATION MAY BE OMITTED. This clinical summary was aggregated from multiple sources. Caution should be exercised in using it in the provision of clinical care. This summary normalizes information from multiple sources, and as a consequence, information in this document may materially change the coding, format and clinical context of patient data. In addition, data may be omitted in some cases. CLINICAL DECISIONS SHOULD BE BASED ON THE PRIMARY CLINICAL RECORDS. [employer] provides no warranty or guarantee of the accuracy or completeness of information in this document.
[2023-10-18 04:08] LABS: Age Gdln ACOG Testing Note (.); HPV Aptima Negative (Negative); IGP, Aptima HPV, rfx 16/18,45 Note (.)
== END 2023-10-12 19:03 | disposition home or self-care (01) ==
LOC: LAB 19:02
PROVIDERS: PCP Family Medicine; Visit Provider Physician Assistant
DX: Z01.419 Encounter for gynecological examination (general) (routine) without abnormal findings (principal)
CPT/HCPCS: 87624; G0145

== ENCOUNTER 2023-12-14 08:41 | Outpatient (OUT) | payer OTHER, SELFPAY ==
--- NOTE | 2023-12-14 | MM_ITS ---
Patient Name: BENJAMÍN GRIGSG MR#: [id number] : 1975 Exam Date: 12/14/2023 Ordering Doctor: ROCKY Payne . RADIOLOGY REPORT PROCEDURE: MM TOMOSYNTHESIS SCREENING BI COMPARISON: MG MAMM SCREEN 3D JAMA CAD, 11/19/2021. MG MAMM SCREEN 3D JAMA CAD, 12/01/2022. INDICATIONS: Screening Calculator Name NCI Breast Cancer Risk Assessment Tool 5 Year Breast Cancer Risk 1.10% Lifetime Breast Cancer Risk 11.10% Personal Breast Cancer No Personal Ovarian Cancer No Treatments None Family Cancers Grandmother-paternal with breast cancer at age ~60; Grandmother-maternal with melanoma cancer at age ~55. LOCATION: [facility] BREAST COMPOSITION: Extremely dense, which lowers the sensitivity of mammography. FINDINGS: DIAGNOSTIC CATEGORY 1--NEGATIVE. NO CHANGE FROM COMPARISON ASSESSMENT. Scattered benign-appearing lymph nodes are present. RIGHT BREAST: No significant suspicious finding. LEFT BREAST: No significant suspicious finding. RECOMMENDATIONS: ROUTINE MAMMOGRAM AND CLINICAL EVALUATION IN 12 MONTHS. PLEASE NOTE: A NORMAL MAMMOGRAM DOES NOT EXCLUDE THE POSSIBILITY OF BREAST CANCER. A CLINICALLY SUSPICIOUS PALPABLE LUMP SHOULD BE BIOPSIED. Dictated by: Benjamin Blancas MD on 12/14/2023 at 09:39 Approved by: Benjamin Blancas MD on 12/14/2023 at 09:40
--- OUTSIDE RECORDS SUMMARY | 2023-12-14 09:02 | XMS_ITS | CCD ---
Author Organization [facility] Care Team Providers Care Nuclear Pharmacist Name Role Phone PHYSICIAN, DEFAULT Unavailable Unavailable PHYSICIAN, DEFAULT Unavailable Unavailable RENITA, DR JENSEN Primary Care Unavailable MICHAEL, DR EMELYN Burns Admitting Unavailable MICHAEL, DR EMELYN Burns Attending Unavailable MICHAEL, DR EMELYN Burns Consulting Unavailable HARLAN HU Consulting Unavailable ABDOULASIGiovana ., DR PERRY Admitting Unavailabl e KARASIK ., DR PERRY Attending Unavailabl e RENITA, DR JENSEN Primary Care Unavailable KARASIK ., DR PERRY Consulting Unavailabl e SARAHEBJAIRO, DR TUNG Burns Consulting Unavailable KARASIK ., DR PERRY Admitting Unavailabl e KARASIK ., DR PRERY Attending Unavailabl e RENITA, DR JENSEN Primary Care Unavailable KARASIK ., DR PERRY Consulting UnavailMikey Greenberg Mikey Maravilla Primary Care Physician SAJI GOMES Attending Unavailable ASHLEY ROBLES Attending Unavailable SAJI GOMES Attending Unavailable SAJI GOMES Referring Unavailable Barb Rain Attending Unavailable Mikey Maravilla Referring Unavailable Barb Rain Attending Unavailable Barb Rain Referring Unavailable Barb Rain Admitting Unavailable Allergies Allergy Classification Reported Allergen(s) Allergy Type Date of Onset Reaction(s) Facility (5 sources) Omeprazole Drug Allergy 4 did not control heartburn 2021 [facility] (5 sources) Seasonal allergy Propensity to adverse reactions 4 Unknown, Unknown Reaction [facility] (1 source) No Known Medication Allergies; Translations: [No Known Medication Allergies] Propensity to adverse reactions (disorder) [facility] Repository Medications Current Medications Medication Drug Class(es) Dates Sig (Normalized) Sig (Original) amLODIPine 5 mg oral tablet (7 sources) Dihydropyridine Calcium Channel Braeden Start: 12-05-2023 take 1 tablet by mouth once daily Amlodipine Active 1 TAB PO Daily December 05, 2023 12:00am FreeTextSig: TAKE 1 TABLET BY MOUTH EVERY DAY; Note: Source Status: Continue; Provider: Colten Elliott Start: 10-11-2023 amLODIPine 5 m g Tab Refills(s) 0 Start Date: 10/11/23 Status: Ordered take 1 tablet by joe th once daily amLODIPine Besylate 5 MG TAKE 1 TABLET BY MOUTH EVERY DAY Active cetirizine hydrochloride 10 mg oral tablet (5 sources) Histamine-1 Receptor Antagonist Start: 12-05-2023 take 1 tablet by mouth once daily as needed Cetirizine (Zyrtec) 10 mg tablet Active 1 TAB PO Daily December 05, 2023 12:00am FreeTextSi tablet as needed Orally Once a day; Note: Source Status: Takingprn; Provider: Renita Jensen ( ) take 1 tablet by joe th every twenty-four hours ZyrTEC Allergy 10 MG 1 tablet as needed Orally Once a day prn Active Co-Enzyme Q10 200 MG (1 source) Start: 08-17-2023 take 1 capsule by mouth once daily Co-Enzyme Q10 200 MG 1 capsule Orally qd Jul, Active CoQ10 (2 sources) Start: 10-11-2023 CoQ10 Oral, Da luis, Refills(s) 0 Start Date: 10/11/23 Status: Ordered Multi Vitamin+ (2 sources) Start: 10-11-2023 Multi Vitamin+ Refill(s) 0 Start Date: 10/11/23 Status: Ordered Multivitamin preparation (3 sources) Start: 12-05-2023 take 1 tablet by mouth once daily Multivitamin Active 1 TAB PO Daily December 05, 2023 12:00am Multivitamin Act aneesh pantoprazole 40 mg delayed release oral tablet (7 sources) Proton Pump Inhibitor Start: 12-05-2023 take 1 tablet by mouth once daily 30 minutes before mealtime Pantoprazole Active 40 MG PO December 05, 2023 12:00am FreeTextSig: TAKE 1 TABLET BY MOUTH ONCE A DAY 30 MINUTES BEFORE A MEAL; Note: Source Status: Taking; Refills: 3; Provider: Colten Elliott Start: 10-11-[address]23 [address]op[address] Tab Refills(s) 0 Start Date: 10/11/23 Status: Ordered take 1 tablet by joe th once daily 30 minutes before mealtime Pantoprazole Sodium 40 MG TAKE 1 TABLET BY MOUTH ONCE A DAY 30 MINUTES BEFORE A MEAL for 90 days Active 24 hr propranolol hydrochloride 60 mg extended release oral capsule (5 sources) beta-Adrenergic Braeden Start: 12-05-2023 Propra nolol Active MG PO December 05, 2023 12:00am FreeTextSig: TAKE 1 CAPSULE BY MOUTH EACH MORNING; Note: Source Status: Continue; Provider: Renita Jensen ( ) Start: 10-11-2023 propranolol 60 mg Cap-ER Refills(s) 0 Start Date: 10/11/23 Status: Ordered Start: 08-17-2023 take 1 capsule by mo uth once daily in the morning Inderal LA 60 MG 1 capsule Orally qd am for 30 days Jul, Active rosuvastatin calcium 5 mg oral tablet (5 sources) HMG-CoA Reductase Inhibitor Start: 12-05-2023 take 1 tablet by mouth once daily Rosuvastatin Active 1 TAB PO Daily December 05, 2023 12:00am FreeTextSi tablet Orally Once a day; Note: Source Status: Continue; Provider: Colten Elliott Start: 10-11-2023 rosuvastatin 5 mg Tab Refills(s) 0 Start Date: 10/11/23 Status: Ordered Start: 08-17-2023 take 1 tablet by joe th every twenty-four hours Rosuvastatin Calcium 5 MG 1 tablet Orally Once a day for 30 days Jul, Active ubidecarenone 200 mg oral capsule (2 sources) Start: 12-05-2023 take 1 capsule by mouth once daily Coenzyme Q10 Active MG PO December 05, 2023 12:00am FreeTextSi capsule Orally qd; Note: Source Status: Continue; Provider: Reniat Fontanez Start: 08-17-2023 take 1 capsule by mo uth every twenty-four hours Co-Enzyme Q10 200 MG 1 capsule Orally qd Jul, Active Completed/Discontinued Medications Medication Drug Class(es) Dates Sig (Normalized) Sig (Original) cefTRIAXone (4 sources) Cephalosporin Antibacterial Start: 10-30-2019 Rocephin 500 mg Oct, 1 g Problems Active Problems Problem Classification Problem Date Documented Date Episodic/Chronic Calculus of urinary tract (11 sources) Calculus of ureter; Translations: [Personal history of urinary calculi] Onset: 03-04-2022 Episodic Cardiac dysrhythmias (1 source) Palpitations Episodic Deficiency and other anemia (1 source) Anemia, unspecified Episodic Deficiency and other anemia (2 sources) Anemia 10-11-2023 Episodic Diabetes mellitus without complication (5 sources) Hyperglycemia, unspecified; Translations: [Hyperglycemia] Episodic Disorders of lipid metabolism (9 sources) Hyperlipidemia; Translations: [Hyperlipidemia, unspecified] Chronic Esophageal disorders (7 sources) Gastro-esophageal reflux disease without esophagitis; Translations: [Gastroesophageal reflux disease] Onset: 03-04-2022 Chronic Essential hypertension (2 sources) Hypertensive disorder 10-06-2023 Chronic Genitourinary symptoms and ill-defined conditions (3 sources) Stress incontinence (female) (male); Translations: [Genuine stress incontinence] Onset: 10-11-2023 Chronic Genitourinary symptoms and ill-defined conditions (7 sources) Hematuria, unspecified; Translations: [Microscopic hematuria] Onset: 10-11-2023 Episodic Headache; including migraine (5 sources) Migraine; Translations: [Migraine, unspecified, not intractable, without status migrainosus] Chronic Immunizations and screening for infectious disease (1 source) Encounter for screening for human papillomavirus (HPV); Translations: [ENC SCREENING HUMAN PAPILLOMAVIRUS] Onset: 10-11-2022 Episodic Other aftercare (2 sources) Other predatory animal exterminator (current) drug therapy; Translations: [OTH [employer] STUDIES PROFESSOR CURRENT DRUG THERAPY] Onset: 03-04-2022 Episodic Other circulatory disease (3 sources) Elevated blood-pressure reading, without diagnosis of hypertension; Translations: [Elevated blood pressure reading without diagnosis of hypertension] Episodic Other circulatory disease (1 source) Elevated blood pressure; Translations: [Elevated blood-pressure reading, without diagnosis of hypertension] 12-05-2023 Episodic Other connective tissue disease (1 source) Plantar fasciitis; Translations: [Plantar fascial fibromatosis] 12-05-2023 Episodic Other connective tissue disease (1 source) Plantar fascial fibromatosis; Translations: [Plantar fascial fibromatosis] 12-05-2023 Episodic Other lower respiratory disease (4 sources) Solitary nodule of lung; Translations: [Solitary pulmonary nodule] Episodic Other lower respiratory disease (2 sources) Solitary pulmonary nodule Episodic Other lower respiratory disease (2 sources) Nodule of lung 10-06-2023 Episodic Other nutritional; [...] Results Test Name Value Interpretation Reference Range Facility Laboratory - Chemistry and C hemistry - challengeon 11-27-2023 Cholesterol in LDL [Mass/Vol] 66 mg/dL [facility] Consent for Procedure/Surger yon 10-23-2023 Consent for Procedure/Surgery [id number]# 1.00TIFF Normal [facility] Consent for Treatmenton Consent for Treatment [id number] .00TIFF Normal [facility] Inpatient Patient Summaryon 10-23-2023 Inpatient Patient Summary [place] [id number] Clinical Summary Person Information Name: FLOR GRIGGS Age: 47 Years : 1975 Sex: Female PCP: Mikey Maravilla DO Marital Status: Race: White Ethnicity: Non- or Language: French Visit Id: Visit Reason: MICROSCOPIC HEMATURIA Speciality: Acuity: Enc Type: Outpatient Med Service: Surgery Arrival: 10/23/2023 09:07:46 Discharge: Dispo Type: Address: [address] [place] [address] [place] [id number] Provider Notes: Diagnosis: Microscopic hematuria Problems Active Stress incontinence Anemia Microscopic hematuria Lung nodule Kidney stone Hypertension Hyperlipidemia Hyperglycemia Smoking Status: Functional Status: Sensory Deficits: History of Falls: Mobility Assistance Prior to Admission: ADLs: Current Level of Assistance for Self-Care/Mobility: Cognitive Status: Allergies No Known Medication Allergies Laboratory or Other Results This Visit (last charted value for your 10/23/2023 visit) No Laboratory or Other Results This Visit Measurements: Height: 170.18 cm Weight: Blood Pressure: Not Valued / Not Valued BMI: Procedures No Procedures Documented Immunizations No Immunizations Documented This Visit Final Med List: amlodipine (amLODIPine 5 mg Tab) multivitamin (Multi Vitamin+) pantoprazole (Pantoprazole [address] Tab) propranolol (propranolol 60 mg Cap-ER) rosuvastatin (rosuvastatin 5 mg Tab) ubiquinone (CoQ10) By Mouth every day. Care Team Members: Attending Physician: Barb Rain MD Consulting Physician: Referring Physician: Barb Rain MD Follow up: With: Address: When: Barb Rain Comments: Call for any problems. Patient Education Information: EU - Cystoscopy Discharge Instructions (CUSTOM) [facility] IntraOperative Documentson 0 10-23-2023 IntraOperative Documents [id number] 1.00TIFF [facility] Main OR Intraoperative Recor don 10-23-2023 Main OR Intraoperative Record IntraOp Document Type FTURO Summary Primary Physician: Barb Rain MD Finalized Date/Time: 10/23/23 10:08:49 Pt. Name: ANSON FLORRITIKA Aparicio/Sex: 1975 Female Med Rec #: [id number] Physician: Barb Rain MD Financial #: [id number] Pt. Type: O Room/Bed: / Admit/Disch: 10/23/23 09:07:46 - Institution: Case Times FTURO Entry 1 Patient Times In Room 10/23/23 09:56:00 Out Room 10/23/23 10:16:00 Procedure Times Start 10/23/23 10:06:00 Stop 10/23/23 10:11:00 Anesthesia Times Last Modified By: Ricardo HICKS, MARY JO, Vero 10/23/23 10:08:37 Case Attendance FTURO Entry 1 Entry 2 Entry 3 Case Attendee Koffi PADRON, Barb iSlva RN, CNOR, Johnnie CARVALHO, Lizz Pham Role Performed Surgeon - Primary Qa Lead - Primary Scrub - Primary Time In 10/23/23 09:56:00 10/23/23 09:56:00 10/23/23 09:56:00 Time Out 10/23/23 10:16:00 10/23/23 10:16:00 10/23/23 10:16:00 Procedure CYSTOSCOPY LOCAL(.) CYSTOSCOPY LOCAL(.) CYSTOSCOPY LOCAL(.) Comments Last Modified By: Ricardo HICKS, CNOR, Ricardo HICKS, BRIGIDAOR, Ricardo HICKS, BRIGIDAORVero 10/23/23 Vero 10/23/23 Vero 10/23/23 10:08:38 10:08:38 10:08:38 Surgical Procedures FTURO Entry 1 Procedure Description Procedure CYSTOSCOPY LOCAL Modifiers . Surgeon Description CYSTO Primary Procedure Yes Primary Surgeon Koffi PADRON, Barb Salomon Start 10/23/23 10:06:00 Stop 10/23/23 10:11:00 Anesthesia Type Local Surgical Service Urology Wound Class 2 - Clean-Contaminated Last Modified By: Ricardo HICKS, BRIGIDAOR, Vero 10/23/23 10:08:39 General Case Data FTURO Pre-Care Text: Classifies surgical wound, implements aseptic technique, initiates traffic control Entry 1 Case Information OR URO 1 FT Case Level None Wound Class 2 - Clean-Contaminated Specialty Urology Preop Diagnosis MICROSCOPIC HEMATURIA Postop Same As Preop No Postop Diagnosis clear bladder Outcomes Met? Yes Last Modified By: Ricardo HICKS, BRIGIDAOR, Vero 10/23/23 09:59:19 Post-Care Text: The patient is free from signs and symptoms of infection EU IntraOp - FTURO Pre-Care Text: Implements protective measures prior to operative or invasive procedure, confirms identity before the operative or invasive procedure, verifies operative procedure, surgical site, and laterality Entry 1 EU Perioperative Protocols Procedure(s) CYSTOSCOPY LOCAL(.) Patient Identity Birthday, ID Band Verified (select at Check, Patient least 2): Participation Consents / H and P HandP, Surgery/Procedure Operative Site N/A Verified Consent Marking Verified Surgical Site Yes Laterality Verified n/a Verified Procedure Verified Yes Correct Patient Yes Position Verified Availability Equipment, Medication Time Out Barb Rain MD, Verified (If Participants Ricardo HICKS, BRIGIDAOR, Applicable) Johnnie Pham CST, Lizz Ordonez Time Out Complete 10/23/23 09:59:00 Allergies Reviewed? Yes Allergies Reviewed Self/Patient With Body Position Frog Legged Prep Area perineal area Prep Agents Betadine Solution Skin. Condition Unable to Visualize Additional None Specimens Collected Vitals - EU Blood Pressure 181/94 Pulse 68 bpm Respirations SPO2 EBL 0 IandO - EU Total Intake 0 mL Total Output 0 mL Outcomes Met? Yes Last Modified By: MARY JO Silva RN, Ruthann 10/23/23 10:00:57 Post-Care Text: The patient is free from signs and symptoms of injury caused by extraneous objects Sign Out FTURO Entry 1 Before Patient Leaves OR Nurse verbally Yes Nurse verbally n/a confirms with the confirms with the team the name of team that the procedure(s) instrument, sponge, recorded and needle counts are correct (or N/A) Nurse verbally n/a Nurse verbally n/a confirms with the confirms with the team how the team whether there specimen is labeled are any equipment (including patient problems to be name), if applicable addressed Sign Out Complete 10/23/23 10:11:00 Last Modified By: MARY JO Silva RN, Ruthann 10/23/23 10:08:45 Case Comments Finalized By: MARYJ O Silva RN, Ruthann Document Signatures Signed By: MARY JO Silva RN, Ruthann 10/23/23 10:08 [facility] Main OR Preoperative Recordo n 10-23-2023 Main OR Preoperative Record Holding Area Document Type FTURO Summary Primary Physician: Barb Rain MD Finalized Date/Time: 10/23/23 09:24:36 Pt. Name: FLOR GRIGGS D.O.B./Sex: 1975 Female Med Rec #: [id number] Physician: Barb Rain MD Financial #: [id number] Pt. Type: O Room/Bed: / Admit/Disch: 10/23/23 09:07:46 - Institution: Case Times Holding FTURO Pre-Care Text: Verifies consent for planned procedure, identifies individual values and wishes concerning care, includes family members in perioperative teaching Secures patient's records' belongings, and valuables, maintains patient's dignity and privacy, and maintains patient confidentiality Entry 1 In Holding 10/23/23 09:22:00 Outcomes Met? Yes Last Modified By: Lizz Pearson RN 10/23/23 09:22:45 Post-Care Text: The patient participates in decisions affecting his or her perioperative plan of care The patient's right to privacy is maintained Surgery Checklist FTURO Entry 1 Patient Birthday, ID Band Procedure History and Physical, Identification: Check, Patient Verification: Surgical Consent, With Participation Patient NPO after Midnight: n/a Personal Items: Glasses, Jewelry Personal Items GLASSES; RING X 3 Limitations: UP AD [place] Comment: Complaints of Pain: No Pain Comment: 0/10 Skin Integrity Dry, Warm Vitals - EU Blood Pressure 181/94 Pulse 68 bpm Respirations 16 br/min SPO2 98 % Additional None RN Reviewed Yes Specimens Collected Last Modified By: Lizz Pearson RN 10/23/23 09:24:32 Finalized By: Lizz Pearson RN Document Signatures Signed By: Lizz Pearson RN 10/23/23 09:24 Normal [facility] Operative Reporton Operative Report Patient: FLOR GRIGGS Age: 47 years Sex: Female : 1975 Associated Diagnoses: None Author: Barb Rain MD Procedure Operative Information Details: Date/ Time: 10/23/2023 10:14:00. Pre-Op Dx: Microscopic hematuria (GLG95-IE R31.29, Discharge, Medical). Post-Op Dx: Same. Anesthesia Type: Local. Procedure: Local Cystoscopy. Complications: None. Risks/Benefits/Inform ed Consent: Surgical risks, benefits, details of the procedure have been explained to the patient, Full informed consent has been obtained. Intraoperative Information Prepped: Patient is brought back to the endoscopy suite, Patient is placed in supine position, Patient prepped in the usual fashion with Betadine solution, 2% Xylocaine Jelly is placed per Urethra, After waiting several minutes the Cystoscope is introduced. The Urethra is: Normal. The Bladder is: Normal, Trabeculated None (0), No bladder tumors, lesions, stones or foreign bodies.. The ureteral orifices: Show efflux of clear urine. Devices Implanted: None. Removal: Cystoscope is removed, The patient tolerated it well. Vaginal examination: Vaginal mucosa: There is no vaginal atrophy The urethra is patent, orthotopic. There are no masses or lesions. There is no urethral hypermobility and JEFERSON is not seen. She is able to correctly identify her pelvic muscles, weak recruitment No significant anterior, apical or posterior prolapse. Non-tender pelvic floor muscles . Postoperative Information Discharge: Follow up arranged, No evidence of malignancy. Continue Kegels at home. Patient declined scheduled follow-up, she will call as needed.. Normal [facility] Comment on above: Result Comment: Elec tronically Signed By: Barb Rain MD\.br\Date and Time Signed: 10/23/23 10:16 EST Outpatient Surgery Discharge Instructionon 10-23-2023 Outpatient Surgery Discharge Instruction [place] [id number] Patient Discharge Instructions PERSON INFORMATION Name: FLOR GRIGGS Date of : 1975 Current Date: 10/23/2023 10:10:54 PHYSICIANS Admitting Physician: Barb Rain MD Comment: Discharge Diagnosis: Microscopic hematuria FLOR GRIGGS has been given the following list of follow-up instructions, prescriptions, and patient education materials: IF UNABLE TO CONTACT YOUR PHYSICIAN AND YOU FEEL IT IS AN EMERGENCY, GO TO THE NEAREST EMERGENCY ROOM OR CALL 911 Follow up: With: Address: When: Barb Rain Comments: Call for any problems. Comment: PATIENT EDUCATION INFORMATION Instructions: Cystoscopy ? Voiding after the procedure: there may be some pain, burning, urgency, frequency and blood tinged urine following the procedure. These symptoms usually resolve within 2-5 days. Drink the amount of fluid it takes to keep the urine pink to yellow or clear in color. Drinking enough water and fluids will help to ease any discomfort after your procedure. ? If you are having problems that seem out of the ordinary, please call. ? If unable to contact your physician and you feel it is an emergency, go to the nearest emergency room or call 911 ? Diet ? you may resume your normal diet. ? Activity ? you may resume your normal activities ? Call if you have a fever over 100 degrees. IANSON JENNIFER, have received the attached patient education materials/instruction s and have verbalized understanding: May we do a follow up call? Yes No I was present when discharge instructions were given Patient Signature Date Clinican/Nurse Signature Date You may receive a survey from Mohsen Trinidad asking you to rate your care experience. Your feedback is important and will help us understand what we do well and how we can improve the quality of care we provide to you, your loved ones and our community. It?s an honor to serve you. Thank you for choosing [facility] Normal [facility] Physician Referralon 024 Physician Referral [id number] 1.00TIFF Normal [facility] RAD - Ultrasound Reporton RAD - Ultrasound Report [id number] .00TIFF Normal [facility] Screenson 10-12-2023 Screens [id number] .00TIFF Normal [facility] Ambulatory Visit Summaryon 0 10-11-2023 Ambulatory Visit Summary FLOR GRIGGS :1975 Visit Date:10/11/2023 Ambulatory Visit Instructions Your Diagnosis Microscopic hematuria Kidney stone Stress incontinence Your Care Team Attending Physician - Barb Rain MD Primary Care Physician - Mikey Maravilla DO Referring Physician - Mikey Maravilla DO This Is Your Medications List Contact prescribing physician if questions or concerns amlodipine (amLODIPine 5 mg Tab) multivitamin (Multi Vitamin+) pantoprazole (Pantoprazole [address] Tab) propranolol (propranolol 60 mg Cap-ER) rosuvastatin (rosuvastatin 5 mg Tab) ubiquinone (CoQ10) Procedures Performed Hysterectomy. Discharge Vitals Heart Rate (Peripheral) 78 Respiratory Rate 16 Blood Pressure 152/90 Height 67 in Height 170 cm Weight 200.2 lb Weight 91 kg BMI 31.49 What to do next Scheduled Follow-Up Appointments Monday 9:45 AM EST Where: [facility] You Need to Schedule the Following Appointments Follow Up with Koffi PADRON, Barb Salomon, URL, URO When: Comments: Schedule cysto Where: Medications What How Much When Instructions Unchanged amlodipine (amLODIPine 5 mg Tab) Contact prescribing physician if questions or concerns Unchanged multivitamin (Multi Vitamin+) Contact prescribing physician if questions or concerns Unchanged pantoprazole (Pantoprazole [address] Tab) Contact prescribing physician if questions or concerns Unchanged propranolol (propranolol 60 mg Cap-ER) Contact prescribing physician if questions or concerns Unchanged rosuvastatin (rosuvastatin 5 mg Tab) Contact prescribing physician if questions or concerns Unchanged ubiquinone (CoQ10) Every day Contact prescribing physician if questions or concerns Allergies No Known Medication Allergies Problems Ongoing - Any problem that you are currently receiving treatment for. Anemia Hyperglycemia Hyperlipidemia Hypertension Kidney stone Lung nodule Microscopic hematuria Stress incontinence Patient Survey You may receive a survey via text or e-mail asking about your office visit. Please share your experience with us by completing your survey. We appreciate your feedback and thank you for choosing us for your care. Education Materials Dietary Guidelines to Help Prevent Kidney Stones [...] for following this plan? Reading food labels ? Choose foods with no salt added or low-salt labels. Limit your salt (sodium) intake to less than 1,500 mg a day. ? Choose foods with calcium for each meal and snack. Try to eat about 300 mg of calcium at each meal. Foods that contain 200?500 mg of calcium a serving include: ? 8 oz (237 mL) of milk, calcium-fortifiednon- dairy milk, and calcium-fortifiedfrui t juice. Calcium-fortified means that calcium has been added to these drinks. ? 8 oz (237 mL) of kefir, yogurt, and soy yogurt. ? 4 oz (114 g) of tofu. ? 1 oz (28 g) of cheese. ? 1 cup (150 g) of dried figs. ? 1 cup (91 g) of cooked broccoli. ? One 3 oz (85 g) can of sardines or mackerel. Most people need 1,000?1,500 mg of calcium a day. Talk to your dietitian about how much calcium is recommended for you. Shopping ? Buy plenty of fresh fruits and vegetables. Most people do not need to avoid fruits and vegetables, even if these foods contain nutrients that may contribute to kidney stones. ? When shopping for convenience foods, choose: ? Whole pieces of fruit. ? Pre-made salads with dressing on the side. ? Low-fat fruit and yogurt smoothies. ? Avoid buying frozen meals or prepared deli foods. These can be high in sodium. ? Look for foods with live cultures, such as yogurt and kefir. ? Choose high-fiber grains, such as whole-wheat breads, oat bran, and wheat cereals. Cooking ? Do not add salt to food when cooking. Place a salt shaker on the table and allow each person to add their own salt to taste. ? Use vegetable protein, such as beans, textured vegetable protein (TVP), or tofu, instead of meat in pasta, casseroles, and soups. Meal planning ? Eat less salt, if told by your dietitian. To do this: ? Avoid eating processed or pre-made food. ? Avoid eating fast food. ? Eat less animal protein, including cheese, meat, poultry, or fish, if told by your dietitian. To do this: ? Limit the number of times you have meat, poultry, fish, or cheese each week. Eat a diet free (more content not included)... Normal [facility] Patient Educationon 10-11-19 Patient Education Nephrology Dietary Guidelines to Help Prevent Kidney Stones [...] for following this plan? Reading food labels ? Choose foods with no salt added or low-salt labels. Limit your salt (sodium) intake to less than 1,500 mg a day. ? Choose foods with calcium for each meal and snack. Try to eat about 300 mg of calcium at each meal. Foods that contain 200?500 mg of calcium a serving include: ? 8 oz (237 mL) of milk, calcium-fortifiednon- dairy milk, and calcium-fortifiedfrui t juice. Calcium-fortified means that calcium has been added to these drinks. ? 8 oz (237 mL) of kefir, yogurt, and soy yogurt. ? 4 oz (114 g) of tofu. ? 1 oz (28 g) of cheese. ? 1 cup (150 g) of dried figs. ? 1 cup (91 g) of cooked broccoli. ? One 3 oz (85 g) can of sardines or mackerel. Most people need 1,000?1,500 mg of calcium a day. Talk to your dietitian about how much calcium is recommended for you. Shopping ? Buy plenty of fresh fruits and vegetables. Most people do not need to avoid fruits and vegetables, even if these foods contain nutrients that may contribute to kidney stones. ? When shopping for convenience foods, choose: ? Whole pieces of fruit. ? Pre-made salads with dressing on the side. ? Low-fat fruit and yogurt smoothies. ? Avoid buying frozen meals or prepared deli foods. These can be high in sodium. ? Look for foods with live cultures, such as yogurt and kefir. ? Choose high-fiber grains, such as whole-wheat breads, oat bran, and wheat cereals. Cooking ? Do not add salt to food when cooking. Place a salt shaker on the table and allow each person to add their own salt to taste. ? Use vegetable protein, such as beans, textured vegetable protein (TVP), or tofu, instead of meat in pasta, casseroles, and soups. Meal planning ? Eat less salt, if told by your dietitian. To do this: ? Avoid eating processed or pre-made food. ? Avoid eating fast food. ? Eat less animal protein, including cheese, meat, poultry, or fish, if told by your dietitian. To do this: ? Limit the number of times you have meat, poultry, fish, or cheese each week. Eat a diet free of meat at least 2 days a week. ? Eat only one serving each day of meat, poultry, fish, or seafood. ? When you prepare animal proteins, cut pieces into small portion sizes. For most meat and fish, one serving is about the size of the palm of your hand. ? Eat at least five servings of fresh fruits and vegetables each day. To do this: ? Keep fruits and vegetables on hand for snacks. ? Eat one piece of fruit or a handful of berries with breakfast. ? Have a salad and fruit at lunch. ? Have two kinds of vegetables at dinner. ? You may be told to limit foods that are high in a substance called oxalate. These include: ? Spinach (cooked), rhubarb, beets, sweet potatoes, and [place] chard. ? Peanuts. ? Potato chips, pashto fries, and baked potatoes with skin on. ? Nuts and nut products. ? Chocolate. ? If you regularly take a diuretic medicine, make sure to eat at least 1 or 2 servings of fruits or vegetables that are high in potassium each day. These include: ? Avocado. ? Banana. ? [place], prune, carrot, or tomato juice. ? Baked potato. ? Cabbage. ? Beans and split peas. Lifestyle ? Drink enough fluid to keep your urine pale yellow. This is the most important thing you can do. Spread your fluid intake throughout the day. ? If you drink alcohol: ? Limit how much you have to: ? 0?1 drink a day for women who are not . ? 0?2 drinks a day for men. ? Know how much alcohol is in your drink. In the [place] one drink equals one 12 oz bottle of beer (355 mL), one 5 oz glass of wine (148 mL), or one 1? oz glass of hard liquor (44 mL). ? Lose weight if told by your health care provider. Work with your dietitian to find an eating plan and weight loss strategies that work best for you. General information ? Talk to your health care provider and dietitian about taking daily supplements. Depending on your health and the cause of your kidney stones, you may be told: ? Do not take high-dose supplements of vitamin C (1,000 mg a day or more). ? To take a calcium supplement. ? To take a daily probiotic supplement. ? To take other supplements such as magnesium, fish oil, or vitamin B6. ? Take bhnd-jny-zdfwzah and prescription medicines only as told by your health care provider. These include supplements. What foods sh (more content not included)... Normal [facility] Provider Letteron 10-11-2023 Provider Letter October 11, 2023 [place] [address] : 1975 To Whom It May Concern, Please excuse above patient from work. Date of Appointment: From: 10/11/23 To: _ May Return to Work On:10/11/23 Restrictions: none Comments: Any questions, please call our office Sincerely, [facility] [address], [place] [address] Normal [facility] RAD - Ultrasound Reporton RAD - Ultrasound Report [id number] Normal [facility] MG MAMM SCREEN 3D JAMA CADon 12-01-2022 MG MAMM SCREEN 3D JAMA CAD Patient: FLOR GRIGGS Exam Date: 12/01/2022 : 1975 Gender:F [...] melanoma cancer at age 54. LOCATION: [facility] BREAST COMPOSITION: Extremely dense, which lowers [...] St M.D. on 12/01/2022 at 14:12 Normal [facility] PAP ACOG PANEL 2: 30 to 65on 10-12-2022 . . Normal [facility] Comment on above: Result Comment: Perf ormed at: WB Performed By: #### [id number] #### [facility] [address] [place] [address] Dr. Sean Huynh Age Gdln ACOG Testing 30-65 Normal [facility] Comment on above: Performed By: #### [id number] #### [facility] [address] [address] [address] Sean Huynh DIAGNOSIS: Comment Normal [facility] Comment on above: Result Comment: NEGA TIVE FOR INTRAEPITHELIAL LESION OR MALIGNANCY. Performed at: WB Performed By: #### [id number] #### [facility] [address] [place] [address] Dr. Sean Huynh HPV Aptima Negative Normal Negative [facility] Comment on above: Result Comment: This nucleic acid amplification test detects fourteen high-risk HPV types (16,18,31,33,35,39,45,51,52,56,58,59,66,68) without differentiation. Performed at: =G Performed By: #### [id number] #### [facility] [address] [place] [address] Dr. Sean Huynh HPV Genotype Reflex Comment Normal [facility] Comment on above: Result Comment: Crit eria not met, HPV Genotype not performed. Performed at: WB Performed By: #### [id number] #### [facility] [address] [place] [address] Dr. Sean Huynh Methodology: Comment Normal [facility] Comment on above: Result Comment: This liquid based ThinPrep(R) pap test was screened with the use of an image guided system. Performed at: WB Performed By: #### [id number] #### [facility] [address] [place] [address] Dr. Sean Huynh Note: Comment Normal [facility] Comment on above: Result Comment: The Pap smear is a screening test designed to aid in the detection of premalignant and malignant conditions of the uterine cervix. It is not a diagnostic procedure and should not be used as the sole means of detecting cervical cancer. Both false-positive and false-negative reports do occur. . Performed at: WB Performed By: #### [id number] #### [facility] [address] [place], [place] [address] Dr. Sean Huynh Performed by: Comment Normal [facility] Comment on above: Result Comment: Mariangel Blancas, Bending Machine Operator (ASCP) Performed at: WB Performed By: #### [id number] #### [facility] [address] [place], [place] [address] Dr. Sean Huynh Specimen adequacy: Comment Normal [facility] Comment on above: Result Comment: Sati sfactory for evaluation. No endocervical component is identified. Performed at: WB Performed By: #### [id number] #### [facility] [address] ABD/PELVIS WO CONon 03-03 CT ABD/PELVIS WO CON EXAM: CT abdomen an d Pelvis without contrast dated 03/02/2022 9:36 PM [...] lesion is seen. Left kidney demonstrates moderate hydroureteronephrosis . There is perinephric and periureteric edema noted [...] Nonacute findings as noted Electronically authenticated by: HARLNA HU Date: 2022-03-02 23:28 Normal [facility] CBC AUTO DIFFon 03-02-2022 BASO # 0.1 103/ul Normal 0.0-0.1 [facility] Comment on above: Performed By: #### C BC #### [facility] [address] [address] [address] Sean Huynh Basophils/100 WBC (Bld) 0.8 % Normal 0.2-2.0 [facility] Comment on above: Performed By: #### C BC #### [facility] [address] [address] [address] Sean Huynh EO # 0.1 103/ul Normal 0.0-0.7 [facility] Comment on above: Performed By: #### C BC #### [facility] [address] [address] [address] Sean Huynh Eosinophils/100 WBC (Bld) 1.3 % Normal 0.9-7.0 [facility] Comment on above: Performed By: #### C BC #### [facility] [address] [place] [address] Dr. Sean Huynh Erythrocyte distribution width (RBC) [Ratio] 12.5 % Normal 11.0-15.0 [facility] Comment on above: Performed By: #### C BC #### [facility] [address] [place] [address] Dr. Sean Huynh Hematocrit (Bld) [Volume fraction] 37.4 % Normal 36.0-48.0 [facility] Comment on above: Performed By: #### C BC #### [facility] [address] [place] [address] Dr. Sean Huynh Hemoglobin (Bld) [Mass/Vol] 12.6 g/dL Normal 12.0-16.0 [facility] Comment on above: Performed By: #### C BC #### [facility] [address] [place] [address] Dr. Sean Huynh IG # 0.02 10e3/ul Normal 0.00-0.03 [facility] Comment on above: Performed By: #### C BC #### [facility] [address] [place] [address] Dr. Sean Huynh IG % 0.3 % Normal 0.0-0.5 [facility] Comment on above: Performed By: #### C BC #### [facility] [address] [place] [address] Dr. Sean Huynh LYMPH # 2.4 103/ul Normal 1.2-3.8 [facility] Comment on above: Performed By: #### C BC #### [facility] [address] [place] [address] Dr. Sean Huynh Lymphocytes/100 WBC (Bld) 31.6 % Normal 20.5-60.0 [facility] Comment on above: Performed By: #### C BC #### [facility] [address] [place] [address] Dr. Sean Huynh MANUAL DIFF REQ NO Normal [facility] Comment on above: Performed By: #### C BC #### [facility] [address] [place] [address] Dr. Sean Huynh MCH (RBC) [Entitic mass] 29.8 pg Normal 26.7-34.0 [facility] Comment on above: Performed By: #### C BC #### [facility] [address] [place] [address] Dr. Sean Huynh MCHC (RBC) [Mass/Vol] 33.7 g/dL Normal 29.9-35.2 [facility] Comment on above: Performed By: #### C BC #### [facility] [address] [place] [address] Dr. Sean Huynh MCV (RBC) [Entitic vol] 88.4 fL Normal 81.0-99.0 [facility] Comment on above: Performed By: #### C BC #### [facility] [address] [place] [address] Dr. Sean Huynh MONO # 0.8 103/ul Normal 0.3-0.8 [facility] Comment on above: Performed By: #### C BC #### [facility] [address] [place] [address] Dr. Sean Huynh Monocytes/100 WBC (Bld) 10.0 % Normal 1.7-12.0 [facility] Comment on above: Performed By: #### C BC #### [facility] [address] [place] [address] Dr. Sean Huynh NEUT # 4.3 103/ul Normal 1.4-6.5 [facility] Comment on above: Performed By: #### C BC #### [facility] [address] [place] [address] Dr. Sean Huynh Neutrophils/100 WBC (Bld) 56.0 % Normal 43.0-75.0 [facility] Comment on above: Performed By: #### C BC #### [facility] [address] [place] [address] Dr. Sean Huynh Platelet mean volume (Bld) [Entitic vol] 10.5 fL Normal 9.5-13.5 [facility] Comment on above: Performed By: #### C BC #### [facility] [address] [place] [address] Dr. Sean Huynh PLT 321 103/ul Normal 150-450 [facility] Comment on above: Performed By: #### C BC #### [facility] [address] [place] [address] Dr. Sean Huynh RBC 4.23 106/ul Normal 4.20-5.40 [facility] Comment on above: Performed By: #### C BC #### [facility] [address] [place] [address] Dr. Sean Huynh WBC 7.7 103/ul Normal 4.0-11.0 [facility] Comment on above: Performed By: #### C BC #### [facility] [address] [place] [address] Dr. Sean Huynh ER URINE PROFILEon 2 Bilirubin Ql (U) Negative Normal NEGATIVE [facility] Comment on above: Performed By: #### E RUR #### [facility] [address] [place] [address] Dr. Sean Huynh Clarity (U) CLEAR Normal CLEAR [facility] Comment on above: Performed By: #### E RUR #### [facility] [address] [place] [address] Dr. Sean Huynh Color (U) LT. YELLOW Normal YELLOW [facility] Comment on above: Performed By: #### E RUR #### [facility] [address] [address] [address] Sean MCMAHON A micrscopic examination will be performed if indicated. Normal [facility] Comment on above: Performed By: #### E RUR #### [facility] [address] [address] [address] Sean Huynh Glucose Ql (U) Negative Normal NEGATIVE [facility] Comment on above: Performed By: #### E RUR #### [facility] [address] [address] [address] Sean Huynh Hemoglobin Ql (U) Negative Normal NEGATIVE [facility] Comment on above: Performed By: #### E RUR #### [facility] [address] [place] [address] Dr. Sean Huynh Ketones Ql (U) Negative Normal NEGATIVE [facility] Comment on above: Performed By: #### E RUR #### [facility] [address] [address] [address] Sean Huynh LEUKOCYTES Negative Normal NEGATIVE [facility] Comment on above: Performed By: #### E RUR #### [facility] [address] [address] [address] Sean Huynh Nitrite Ql (U) Negative Normal NEGATIVE [facility] Comment on above: Performed By: #### E RUR #### [facility] [address] [address] [address] Sean Huynh pH (U) 7.0 [pH] Normal 5-9 [facility] Comment on above: Performed By: #### E RUR #### [facility] [address] [place] [address] Dr. eSan Huynh SPEC GRAVITY 1.015 Normal 1.005-<=1.025 [facility] Comment on above: Performed By: #### E RUR #### [facility] [address] [address] [address] Sean Huynh UA PROTEIN Negative Normal NEGATIVE/ TRACE [facility] Comment on above: Performed By: #### E RUR #### [facility] [address] [place] [address] Dr. Sean Huynh UR MICRO IND NOT INDICATED Normal [facility] Comment on above: Performed By: #### E RUR #### [facility] [address] [place] [address] Dr. Sean Huynh Urobilinogen Qn (U) 0.2 {Soumya'U}/dL Normal 0.2 - 1. 0 [facility] Comment on above: Performed By: #### E RUR #### [facility] [address] [place] [address] Dr. Sean Huynh PROF 14(COMP METB)on 022 Albumin [Mass/Vol] 4.0 g/dL Normal 3.4-5.0 [facility] Comment on above: Performed By: #### C MP #### [facility] [address] [place] [address] Dr. Sean Huynh Albumin/Globulin [Mass ratio] 1.0 {ratio} Normal [facility] Comment on above: Performed By: #### C MP #### [facility] [address] [place] [address] Dr. Sean Huynh ALP [Catalytic activity/Vol] 100 U/L Normal 46-116 [facility] Comment on above: Performed By: #### C MP #### [facility] [address] [place] [address] Dr. Sean Huynh ALT [Catalytic activity/Vol] 27 U/L Normal 14-59 [facility] Comment on above: Performed By: #### C MP #### [facility] [address] [place] [address] Dr. Sena Huynh Anion gap [Moles/Vol] 14.4 mmol/L Normal [facility] Comment on above: Performed By: #### C MP #### [facility] [address] [place] [address] Dr. Sean Huynh AST [Catalytic activity/Vol] 17 U/L Normal 15-37 [facility] Comment on above: Performed By: #### C MP #### [facility] [address] [place] [address] Dr. Sean Huynh Bilirubin [Mass/Vol] 0.3 mg/dL Normal 0.2-1.0 [facility] Comment on above: Performed By: #### C MP #### [facility] [address] [address] [address] Sean Huynh Calcium [Mass/Vol] 9.2 mg/dL Normal 8.5-10.1 [facility] Comment on above: Performed By: #### C MP #### [facility] [address] [address] [address] Sean Huynh Chloride [Moles/Vol] 102 mmol/L Normal 98-107 [facility] Comment on above: Performed By: #### C MP #### [facility] [address] [address] [address] Sean Huynh CO2 [Moles/Vol] 25.9 mmol/L Normal 21.0-32.0 [facility] Comment on above: Performed By: #### C MP #### [facility] [address] [address] [address] Sean Huynh Creatinine [Mass/Vol] 0.80 mg/dL Normal 0.55-1.02 [facility] Comment on above: Performed By: #### C MP #### [facility] [address] [address] [address] Sean Huynh EGFR-AF MACEDONIAN >60 Normal >=60 [facility] Comment on above: Performed By: #### C MP #### [facility] [address] [address] [address] Sean Huynh EGFR-NON AF MACEDONIAN >60 Normal >=60 [facility] Comment on above: Performed By: #### C MP #### [facility] [address] [address] [address] Sean Huynh Globulin (S) [Mass/Vol] 4.0 g/dL Normal [facility] Comment on above: Performed By: #### C MP #### [facility] [address] [address] [address] Sean Huynh Glucose [Mass/Vol] 115 mg/dL Critically high 74-106 T [facility] Comment on above: Performed By: #### C MP #### [facility] [address] [address] [address] Sean Huynh Potassium [Moles/Vol] 3.3 mmol/L Critically low 3.5-5.1 [facility] Comment on above: Performed By: #### C MP #### [facility] [address] [address] [address] Sean Huynh Protein [Mass/Vol] 8.0 g/dL Normal 6.4-8.2 [facility] Comment on above: Performed By: #### C MP #### [facility] [address] [address] [address] Sean Huynh Sodium [Moles/Vol] 139 mmol/L Normal 136-145 [facility] Comment on above: Performed By: #### C MP #### [facility] [address] [address] [address] Sean Huynh Urea nitrogen [Mass/Vol] 11.0 mg/dL Normal 7.0-18.0 [facility] Comment on above: Performed By: #### C MP #### [facility] [address] [address] [address] Sean Huynh Urea nitrogen/Creatinine [Mass ratio] 13.8 mg/mg Normal [facility] Comment on above: Performed By: #### C MP #### [facility] [address] [address] [address] Sean Huynh Vital Signs Date Time Vital Sign Value Performing Clinician Facility 12-05-2023 14:36-0400 Body height 165.1 cm [facility] 12-05-2023 14:36-0400 Body mass index (BMI) [Ratio] 36.2 kg/m2 [facility] 12-05-2023 14:36-0400 Body temperature 98.4 [degF] [facility] 12-05-2023 14:36-0400 Body weight 98.88 kg [facility] 12-05-2023 14:36-0400 Diastolic blood pressure 86 mm[Hg] [facility] 12-05-2023 14:36-0400 Heart rate 63 /min [facility] 12-05-2023 14:36-0400 Respiratory rate 18 /min [facility] 12-05-2023 14:36-0400 SaO2% (BldA) [Mass fraction] 97 % [facility] 12-05-2023 14:36-0400 Systolic blood pressure 134 mm[Hg] [facility] 10-11-2023 09:44-0500 Diastolic blood pressure 90 mm[Hg] Barb Lue [facility] 10-11-2023 09:44-0500 Mean blood pressure 111 mm[Hg] Barb Lue [facility] 10-11-2023 09:44-0500 Systolic blood pressure 152 mm[Hg] Barb Lue [facility] 10-11-2023 09:15-0500 Blood Pressure Location Barb Lue [facility] 10-11-2023 09:15-0500 Diastolic blood pressure 98 mm[Hg] Barb Lue [facility] 10-11-2023 09:15-0500 Heart rate 78 /min Barb Lue [facility] 10-11-2023 09:15-0500 Respiratory rate 16 /min Barb Lue [facility] 10-11-2023 09:15-0500 Systolic blood pressure 157 mm[Hg] Barb Lue [facility] 09-15-2023 08:10-0500 Body height 165.1 cm [facility] 09-15-2023 08:10-0500 Body weight 96.61 kg [facility] 09-15-2023 08:10-0500 Diastolic blood pressure 88 mm[Hg] [facility] 09-15-2023 08:10-0500 Systolic blood pressure 136 mm[Hg] [facility] 08-17-2023 12:30-0500 Body height 165.1 cm Mikey Maravilla Other [facility] Other 08-17-2023 12:30-0500 Body mass index (BMI) [Ratio] 36.02 kg/m2 Mikey Maravilla Other [facility] Other 08-17-2023 12:30-0500 Body temperature 99.3 [degF] Mikey Maravilla Other [facility] Other 08-17-2023 12:30-0500 Body weight 98.2 kg Mikey Maravilla Other [facility] Other 08-17-2023 12:30-0500 Diastolic blood pressure 100 mm[Hg] Mikey Maravilla Other [facility] Other 08-17-2023 12:30-0500 Respiratory rate 18 /min Mikey Maravilla Other [facility] Other 08-17-2023 12:30-0500 SaO2% (BldA) [Mass fraction] 98 % Mikey Maravilla Other [facility] Other 08-17-2023 12:30-0500 Systolic blood pressure 148 mm[Hg] Mikey Maravilla Other [facility] Other 06-27-2023 09:50-0400 Body height 165.1 cm Mikey Maravilla Other [facility] Other 06-27-2023 09:50-0400 Body mass index (BMI) [Ratio] 35.86 kg/m2 Mikey Maravilla Other [facility] Other 06-27-2023 09:50-0400 Body temperature 98 [degF] Mikey Maravilla Other [facility] Other 06-27-2023 09:50-0400 Body weight 97.75 kg Mikey Maravilla Other [facility] Other 06-27-2023 09:50-0400 Diastolic blood pressure 104 mm[Hg] Mikey Maravilla Other [facility] Other 06-27-2023 09:50-0400 Respiratory rate 18 /min Mikey Maravilla Other [facility] Other 06-27-2023 09:50-0400 SaO2% (BldA) [Mass fraction] 98 % Mikey Maravilla Other [facility] Other 06-27-2023 09:50-0400 Systolic blood pressure 160 mm[Hg] Mikey Maravilla Other [facility] Other Encounters Encounter Date Encounter Type Care Provider Facility Start: 12-05-2023 End: 12-05-2023 ambulatory [facility] Work Phone: Start: 12-05-2023 End: 12-05-2023 Patient encounter procedure [facility] Physician [facility] Medicine [place] Work Phone: Start: 11-27-2023 Non-patient / Non-visit [facility] Family Medicine [place] Work Phone: Start: 10-23-2023 End: 10-24-2023 ambulatory Barb Rain [place] [place]: 10-23-2023 End: 10-23-2023 Patient encounter procedure Barb Rain [facility] Start: 10-12-2023 End: 10-12-2023 ambulatory ASHLEY ROBLES Not Available Start: 10-11-2023 End: 10-12-2023 ambulatory Barb Rain Facility:[facility] Start: 10-11-2023 End: 10-11-2023 Patient encounter procedure Barb Rain [facility] Start: 10-05-2023 End: 10-05-2023 ambulatory Mikey Maravilla Other [facility] Other Start: 10-05-2023 Telephone encounter Mikey Maravilla [facility] Start: 09-29-2023 ambulatory Barb Rain Facility:[facility] Start: 09-15-2023 End: 09-15-2023 Patient encounter procedure [facility] Family Medicine [facility] Work Phone: Start: 09-14-2023 End: 09-14-2023 ambulatory SAJI José Luis GOMES Not Available Start: 08-31-2023 End: 08-31-2023 ambulatory SAJI A BROWN Not Available Start: 08-31-2023 End: 08-31-2023 ambulatory SAJI A BROWN Not Available Start: 08-28-2023 ambulatory Barb Rain Facility:[facility] Start: 08-17-2023 End: 08-17-2023 ambulatory Mikey Maravilla Other [facility] Other Start: 08-17-2023 Office outpatient vi sit 25 minutes Mikey Maravilla [facility] Family [facility] Start: 07-14-2023 End: 07-14-2023 ambulatory Mikey Maravilla Other [facility] Other Start: 07-14-2023 Telephone encounter Mikey Maravilla [facility] [place] Start: 06-27-2023 End: 06-27-2023 ambulatory Mikey Maravilla Other [facility] Other Start: 06-27-2023 Encounter for genera l adult medical examination without abnormal findings Mikey Maravilla [facility] Start: 06-27-2023 Periodic preventive med est patient 40-64yrs Mikey Maravilla [facility] Start: 12-01-2022 End: 12-02-[address] ORLANDO AKINS . Facility: Start: 10-07-2022 End: 10-07-[address] ORLANDO AKINS . Facility:[facility] Start: 03-02-2022 End: 03-03-[address] MIKEY MARAVILLA Facility: Start: 07-04-2017 End: 07-05-2017 Ambulatory DEFAULT PHYSICIAN Facility:[facility] Procedures Date Procedure Procedure Detail Performing Clinician Hysterectomy Barb Sandovalgeovany Plan of Treatment Date Care Activity Detail Author Comprehensive metabo lic 2000 panel - Serum or Plasma [facility] Immunizations Immunization Date Immunization Notes Care Provider Fa cility 07-08-2023 Flu Shot - Documenta tion Purposes Only Mikey Maravilla Other [facility] 07-08-2023 influenza virus vacc ine, unspecified formulation Barb Lugeovany [facility] 07-09-2022 influenza virus vacc ine, unspecified formulation Barb Rain [facility] 01-21-2021 COVID-19 Vaccine Mod sheyla - Documentation Purposes Only Mikey Maravilla Other [facility] Comment on above: Result Comment: 2023: 39 12-24-2020 COVID-19 Vaccine Mod sheyla - Documentation Purposes Only Mikey Maravilla Other [facility] Comment on above: Result Comment: 2023: 39 07-17-2020 influenza virus vacc ine, unspecified formulation Barb Lue [facility] 07-17-2020 influenza, seasonal, injectable Mikey Girvin Other [facility] 07-13-2019 influenza virus vacc ine, unspecified formulation Barb Lue [facility] 07-16-2018 influenza, seasonal, injectable Mikey Girvin Other [facility] 07-15-2017 influenza virus vacc ine, unspecified formulation Barb Lue [facility] 07-15-2017 influenza, seasonal, injectable Mikey Girvin Other [facility] 07-16-2016 influenza virus vacc ine, unspecified formulation Barb Lue [facility] 07-16-2016 influenza, seasonal, injectable Mikey Girvin Other [facility] 07-21-2014 influenza virus vacc ine, unspecified formulation Barb Lue [facility] 07-05-2013 influenza, seasonal, injectable, preservative free Imkey Girvin Other [facility] 07-05-2012 influenza, seasonal, injectable, preservative free Mikey Girvin Other [facility] Payers Date Payer Category Payer Unknown [id number] 1975 Unknown [id number] 2.16.84 [id number] 1975 Unknown [id number] 2.16.84 [id number] 1974 Unknown [id number] 2.16.84 [id number] 1974 Unknown [id number] 2.16.84 [id number] 1974 Unknown [id number] [id number] 1974 Unknown [id number] [id number] .[id number] 1974 Unknown [id number] [id number] .[id number] 1974 Unknown [id number] 2.16.8 [id number] 1974 Unknown [id number] 2.16.8 [id number] 1959 Unknown [id number] Unknown Unknown [facility] [id number] Social History Date Type Detail Facility Unknown if ever smoked [facility] Other Sex Assigned At [facility] Start: 10-11-2023 End: 12-05-2023 Tobacco smoking status Never smoked tobacco (finding) [facility] Tobacco smoking status Never [facility] Start: 1975 Sex Assigned At Female [facility] Functional Status Date Assessment Result Facility 10-23-2023 Functional Status N/A [facility] 10-11-2023 Functional Status N/A [facility] Clinical Notes 06-27-2023 to 10-23-2023 Note Date & Type Note Facility 10-23-2023 Note [id number] [facility] 10-23-2023 Note Cystoscopy ? Voiding after the procedure: there may be some pain, burning, urgency, frequency and blood tinged urine following the procedure. These symptoms usually resolve within 2-5 days. Drink the amount of fluid it takes to keep the urine pink to yellow or clear in color. Drinking enough water and fluids will help to ease any discomfort after your procedure. ? If you are having problems that seem out of the ordinary, please call. ? If unable to contact your physician and you feel it is an emergency, go to the nearest emergency room or call 911 ? Diet ? you may resume your normal diet. ? Activity ? you may resume your normal activities ? Call if you have a fever over 100 degrees. [facility] 10-23-2023 Hospital Discharg e instructions Patient Education 10/23/2023 10:10:52 [facility] - Cystoscopy Discharge Instructions (CUSTOM) Cystoscopy Voiding after the procedure: there may be some pain, burning, urgency, frequency and blood tinged urine following the procedure. These symptoms usually resolve within 2-5 days. Drink the amount of fluid it takes to keep the urine pink to yellow or clear in color. Drinking enough water and fluids will help to ease any discomfort after your procedure. If you are having problems that seem out of the ordinary, please call. If unable to contact your physician and you feel it is an emergency, go to the nearest emergency room or call 911 Diet you may resume your normal diet. Activity you may resume your normal activities Call if you have a fever over 100 degrees. Follow Up Care 10/11/2023 10:42:24 With:Barb Rain Address:Unknown When: Unknown Comments:Call for any problems. [facility] 10-11-2023 Note Chief Complaint Referral *Hematuria HPI Staff Evaluation requested by Dr Mikey Maravilla due to hematuria. Pt is a new pt. Never before seen in our office. Per referral papers, Hx of Kidney Stones (last one in February of 2022). Passed on her own. UA 03/02/22 CT ap wo 03/02/22 (passed stone after image) MICHAEL 07/13/23 (ordered by Dr Maravilla to follow up to previous MICHAEL) Blood was found on UA at time of annual physical. Denies visible blood in urine. (June) Denies Family Hx of Bladder Cancer (father does have Prostate Cancer). Denies Hx of Smoking. Does have some minimal leaking since Hysterectomy. Denies current flank pain No Hx of Stone Analysis. Last UTI 8yrs ago. PVR 12ml History of Present Illness Tests reviewed: reviewed UA and External Records including CT scan, ultrasound, notes, labs, UAs and cultures I have reviewed the previous health record information and history for this patient from External Provider. I have reviewed and verified the staff HPI to be accurate for this encounter. There have been no associated fever, chills, flank pain, or blood in the urine. Review of Systems PHQ Score Initial Depression Screen Score: 0 SCORE ROS - Provider Constitutional: denies weight loss, denies hot flashes. Eyes: denies eye problems. Gastrointestinal: denies nausea, denies vomiting. Cardiovascular: denies chest pain or angina. Integumentary: no dryness Musculoskeletal: denies musculoskeletal symptoms. ENMT: denies otolaryngeal symptoms. Respiratory: no shortness of breath. Heme/Lymph: denies easy bleeding tendency, denies easy bruising tendency. Psychiatric: no confusion, no anxiety. Genitourinary: See HPI. Physical Exam Vitals & Measurements HR: 78(Peripheral) RR: 16 BP: 152/90 HT: 67 in HT: 170 cm WT: 91 kg WT: 200.2 lb BMI: 31.49 General Appearance: alert , no acute distress, well nourished, well developed female. Head: normocephalic . Eyes: normal orbit and globe. ENMT: normal examination of external ears. Chest: symmetric chest rise, respirations non labored . Cardiovascular: regular rate and rhythm. Abdomen: soft, non distended, no tenderness Genitourinary: bladder nonpalpable, no flank tenderness Skin: warm, dry, no bruising. Psychiatric: cooperative, affect appropriate for age, normal judgement, euthymic mood. Assessment/Plan 47-year-old healthy female referred by PCP for new patient evaluation of asymptomatic microscopic hematuria Last UTI 8yrs ago. PVR 12ml 1. Microscopic hematuria (R31.29: Other microscopic hematuria) UA 03/02/22 - negative UA 07/28/23 - 10-15 RBC MICHAEL 07/13/23 -negative for stones or hydro Denies history of gross hematuria UA today shows no signs of blood or infection. Urologic malignancy is more common in patients with gross hematuria (23%) than in patient with microscopic hematuria (5%). In adults with microscopic hematuria, the initial evaluation fails to identify an etiology in 43% of patients. Approximately 1-3% of these patients eventually develop a urologic malignancy. Asymptomatic microscopic hematuria: > 3 RBCs/HPF in absence of obvious benign cause, such as infection, menstruation, vigorous exercise, medical renal disease, viral illness, trauma or recent urological procedures. AUA microhematuria risk assessment: age FM <50, M <40 : low smoking hx <10 pack years : low RBCs on UA 11-25 RBCs : intermediate additional risk factors : irritative LUTS no family hx cancer no occupational exposure no hx chronic indwelling foreign body in urinary tract no previously low risk with no prior imaging/cysto : no, first episode Based on the above risk assessment the pt is considered intermediate risk. - A cystoscopy will be scheduled to rule out lower urinary tract pathology. The rationale for this workup has been discussed, and all questions have been answered. Informed consent will be obtained. All questions/concerns were discussed. Pt to call the office if she encounters any issues prior. Pt acknowledges understanding. -Will schedule cystoscopy. The risks and benefits for cystoscopy have been discussed. The risks include bleeding, infection, and irritation of the bladder and urinary channel, among others. The patient, after being informed of procedural details and after questions have been answered, wishes to proceed. Full informed consent has been obtained. Will order Local anesthesia. 2. Kidney stone (N20.0: Calculus of kidney) Hx of Kidney Stones (last one in February of 2022), last one was over 20 yrs ago. Passed on her own. CT ap wo 03/02/22 (passed stone after image) - 3mm stone at Left UVJ/terminal ureter MICHAEL 07/13/23 (ordered by Dr Maravilla to follow up to previous MICHAEL) - no stones/hydro noted Denies current flank pain No Hx of Stone Analysis. We discussed management options moving forward including general dietary modifications, metabolic stone work-up including serum labs and 24-hour urine analysis, continued surveillance wit (more content not included)... [facility] Comment on above: Result Comment: Elec tronically Signed By: Barb Rain MD\.br\Date and Time Signed: 10/11/23 20:11 EST\.br\Electronically Co-Signed By: Bobbi Rivas.br\Date and Time Co-Signed: 10/11/23 10:36 EST 10-11-2023 Hospital Discharg e instructions Patient Education [...] include: ?8 oz (237 mL) of milk, sepoogd-gqujoysuckrb-cyydw milk, and calcium-fortifiedfruit juice. Calcium-fortified means that [...] ?Spinach (cooked), rhubarb, beets, sweet potatoes, and Citizen [place] chard. ?Peanuts. ?Potato chips, pashto fries, and baked potatoes with skin on. ?Nuts and nut products. ?Chocolate. If you regularly take a diuretic medicine, make sure to eat at least 1 or 2 servings of fruits or vegetables that are high in potassium each day. These include: ?Avocado. ?Banana. ?Yadkin, prune, carrot, or tomato juice. ?Baked potato. [...] magnesium, fish oil, or vitamin B6. Take icwq-nsy-dxnasva and prescription medicines only as told by [...] Casseroles. Pizza. Lasagna. Frozen meals. Potato chips. Indonesian fries. The items listed above may not [...] provider. Document Revised: 12/15/2022 Document Reviewed: 12/15/2022 [employer] Patient Education 2022 [employer]. Follow Up Care 08/28/2023 13:50:06 With:Koffi PADRON, KARTIK Hayes, URO Address: When: Unknown Comments:Schedule cysto [facility] [place] 08-17-2023 Evaluation note Encounter Date Diagnosis Assessment [...] that the soil and dirt here in [place] is very dirty. She [place] farm and he felt this explained her nodule and told her that it was calcified and she was fine . She does not need to return to see him unless needed. Jul, Other skilled nursing (current) drug therapy (ICD-10 - Z79.899) Jul, Other Magnesium level was 1.9. [facility] Other 10-10-2023 Evaluation note* Encounter Date Diagnosis Assessment Notes Treatment Notes Treatment Clinical Notes Jun, Elevated blood pressure reading (ICD-10 [...] Wellness examination (ICD-10 - Z00.00) Jun, GERD (gastroesophagea l reflux disease) (ICD-10 - K21.9) She did [...] contrast and then follow up with a community services coordinator. She has never been a smoker. Will refer her to Dr. Reyes for evaluation. She is agreeable to the referral. Jun, Anemia (ICD-10 - D64.9) She voices that she has not felt poorly since she had her hysterectomy. Jun, Palpitation (ICD-10 - R00.2) Will order a magnesium level. Jun, Other Provided her wi th a note stating she was seen in the office today 06-27-23. [facility] Other Evaluation + Plan note Future Appointments Appointment Date:10/23/2023 09:45:00 AM Scheduled Provider: Location:[facility] Appointment Type:Urology FT [facility] evaluation noteNo InformationNort Phys[employer] Other Evaluation note* Diagnosis Onset Date Resolution Status Elevated blood pressure reading acute Hematuria acute Hyperglycemia acute Hyperlipidemia acute Plantar fasciitis acute [facility] Work Phone: History general Narrative - Reported* Type Description Date Medical History Medical History 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 Akins / still has b/l ovaries 10-07-2019 Hospitalization History No know Hospitalization history [facility] Other Hospital course Narrative No data available for this section [facility] progress note No data available for this section [facility] Summary Purpose Family History Relationship Condition Age at Onset Recorded Date/T yesenia Not Specified Hypertension Unknown Advance Directives Advance Directive Response Recorded Date/ Time Advance Directives No October 19, 2023 9:22am Reason for Referral Reason appt pt needs cons ult to discuss abnormal findings on CT scan 03/02/22 and will have repeat CT of chest done Diagnosis 1 Lung nodule seen on imaging study (R91.1) Referral Organization [facility] Referring Provider First Name Mikey Referring Provider Last Name Renita Referring Provider Specialty [facility] Prac dragan Referred Organization [facility] Referred Provider Corby Reyes Referred Address [address] [place], [place],[address] Referred Provider Specialty Pulmonary Alona marin Referral Priority Routine General Notes Nieves Barry 06/27/2023 11:00:05 AM > referral faxed thru [facility] with visit note, CT chest from 2021 and insurance card. pt understands she will be contacted to schedule this appt. Reason appt pt needs cons ult to evaluate hematuria Diagnosis 1 Hematuria (R31.9) Referral Organization [facility] Referring Provider First Name Mikey Referring Provider Last Name Renita Referring Provider Specialty Family Justin archibald Referred Organization [facility] Referred Provider BARB RAIN Referred Address [address],[place],[address] Referred Provider Specialty Urology Referral Priority Routine General Notes Nieves Barry 08/17/2023 01:16:43 PM > referral faxed thru [facility] with visit note, UA lab and insurance card. pt understands she will be contacted to schedule this appt. Chief Complaint and Reason for Visit Chief Complaint Re Evaluate Bp review labs Reason for Visit Elevated blood press ure reading Hematuria Hyperglycemia Hyperlipidemia Plantar fasciitis Additional Source Comments INFORMATION SOURCE (unrecogn ized section and content) DATE CREATED AUTHOR 03/13/2018 [facility] DATE CREATED AUTHOR AUTHOR'S ORGANIZ ATION 12/11/2022 [facility] DATE CREATED AUTHOR AUTHOR'S ORGANIZ ATION 10/13/2023 [facility] EPIC DATE CREATED AUTHOR AUTHOR'S ORGANIZ ATION 10/24/2023 Maurice Olivarez [facility] REASON FOR VISIT (unrecogniz ed section and content) yearly check upClinicalrevie w labsClinical Patient Care team informatio n (unrecognized section and content) Team Status: Active Member Role Status Dates Mikey Maravilla DO Primary Care Provider Active Team Status: Inactive Member Role Status Dates Mikey Maravilla DO Attending Provider Active Star t: September 15, 2023 End: September 15, 2023 Team Status: Active Member Role Status Dates Mikey Maravilla DO Primary Care Provide r, Attending Provider Active Start: November 27, 2023 Team Status: Inactive Member Role Status Dates Mikey Maravilla DO Primary Care Provide r, Attending Provider Active Start: December 05, 2023 End: December 05, 2023 Goals (unrecognized section and content) Goals may be documented in a n alternate section FOR RECORDS PERTAINING TO PATIENTS WHO ARE [...] BE BASED ON THE PRIMARY CLINICAL RECORDS. [employer] [facility]. provides no warranty or guarantee of the accuracy or completeness of information in this document.
== END 2023-12-14 08:42 | disposition home or self-care (01) ==
LOC: MAMMO 08:41
PROVIDERS: PCP Family Medicine; Visit Provider Physician Assistant
DX: Z12.31 Encounter for screening mammogram for malignant neoplasm of breast (principal); Z80.3 Family history of malignant neoplasm of breast; Z80.8 Family history of malignant neoplasm of other organs or systems
CPT/HCPCS: 77063; 77067

== ENCOUNTER 2024-10-14 20:34 | Outpatient (REF) | payer OTHER, SELFPAY ==
--- OUTSIDE RECORDS SUMMARY | 2024-10-14 20:38 | XMS_ITS | CCD ---
Author Organization [facility] Care Team Providers Care Quality Control Technician Name Role Phone PHYSICIAN, DEFAULT Unavailable Unavailable PHYSICIAN, DEFAULT Unavailable Unavailable RENITA, DR JENSEN Primary Care Unavailable MICHAEL, DR EMELYN Burns Admitting Unavailable MICHAEL, DR EMELYN Burns Attending Unavailable MICHAEL, DR EMELYN Burns Consulting Unavailable HARLAN HU Consulting Unavailable KARASIK ., DR PERRY Admitting Unavailabl e KARASIK ., DR PERRY Attending Unavailabl e RENITA, DR JENSEN Primary Care Unavailable KARASIK ., DR PERRY Consulting Unavailabl e SARAHEBJAIRO, DR TUNG Burns Consulting Unavailable KARASIK ., DR PERRY Admitting Unavailabl e KARASIK ., DR PERRY Attending Unavailabl e RENITA, DR JENSEN Primary Care Unavailable KARASIK ., DR PERRY Consulting Shilpi Maravilla, Mikey Romero Mikey Maravilla Primary Care Physician SAJI GOMES Attending Unavailable JESSICA ROBLES Attending Unavailable SAJI GOMES Attending Unavailable SAJI GOMES Referring Unavailable Barb Rain Attending Unavailable Mikey Maravilla Referring Unavailable Barb Rain Attending Unavailable Barb Rain Referring Unavailable Barb Rain Admitting Unavailable Mikey Maravilla Primary Care Unavailable Jose Juan Imad Attending Unavailable Jose Juan Imad Admitting Unavailable Mikey Maravilla MD Primary Care Provider [phone] Allergies Allergy Classification Reported Allergen(s) Allergy Type Date of Onset Reaction(s) Facility (7 sources) Omeprazole Drug Allergy 4 did not control heartburn 2021 [facility] (7 sources) Seasonal allergy Propensity to adverse reactions 4 Unknown, Unknown Reaction [facility] (1 source) No Known Medication Allergies; Translations: [No Known Medication Allergies] Propensity to adverse reactions (disorder) [facility] Repository (3 sources) Bacitracin / Polymyxin B Drug Allergy Rash [facility] Medications Current Medications Medication Drug Class(es) Dates Sig (Normalized) Sig (Original) cetirizine hydrochloride 10 mg oral tablet (12 sources) Histamine-1 Receptor Antagonist Start: 12-05-2023 End: 07-02-2024 take 1 tablet by mouth once daily Cetirizine (Zyrtec) 10 mg tablet Active 10 MG PO Daily July 02, 2024 2:57pm Co-Enzyme Q10 200 MG (1 source) Start: 08-17-2023 take 1 capsule by mouth once daily Co-Enzyme Q10 200 MG 1 capsule Orally qd Jul, Active CoQ10 (2 sources) Start: 10-11-2023 CoQ10 Oral, Daily, Refills(s) 0 Start Date: 10/11/23 Status: Ordered Multi Vitamin+ (2 sources) Start: 10-11-2023 Multi Vitamin+ Refill(s) 0 Start Date: 10/11/23 Status: Ordered Multiple Vitamins-Minerals (Multi Complete) capsule (3 sources) Multiple Vitamins-Minerals (Multi Complete) capsule as directed Orally Active Multivitamin preparation (5 sources) Start: 12-05-2023 take 1 tablet by mouth once daily Multivitamin Active 1 TAB PO Daily December 05, 2023 12:00am Multivitamin Act aneesh 24 hr propranolol hydrochloride 60 mg extended release oral capsule (18 sources) beta-Adrenergic Braeden Start: 04-15-2024 End: 04-15-2024 take 60 mg by mouth once daily Propranolol Active 60 MG PO Daily April 15, 2024 10:16am Start: 02-22-2024 End: 04-15-2024 take 1 capsule by mouth once daily in the morning Propranolol Discontinued 0 .ROUTE .COMPLEX 90 March 15, 2024 8:06am April 15, 2024 10:15am TAKE 1 CAPSULE BY MOUTH EVERY MORNING Start: 12-05-2023 End: 02-22-2024 Propranolol Discontinued MG PO December 05, 2023 12:00am February 22, 2024 9:16am FreeTextSig: TAKE 1 CAPSULE BY MOUTH EACH MORNING; Note: Source Status: Continue; Provider: Renita Jensen ( ) Start: 10-11-2023 propranolol 60 mg Cap-ER Refills(s) 0 Start Date: 10/11/23 Status: Ordered Start: 08-17-2023 take 1 capsule by mo uth every twenty-four hours propranolol LA (Inderal LA) 60 MG 24 hr capsule TAKE 1 CAPSULE BY MOUTH EACH MORNING 08/17/2023 Active Start: 08-17-2023 take 1 capsule by mo uth once daily in the morning Inderal LA 60 MG 1 capsule Orally qd am for 30 days Jul, Active rosuvastatin calcium 5 mg oral tablet (16 sources) HMG-CoA Reductase Inhibitor Start: 04-15-2024 take 5 mg by mouth once daily Rosuvastatin Active 5 MG PO Daily April 15, 2024 10:15am Start: 02-23-2024 End: 04-15-2024 take 1 tablet by mouth once daily Rosuvastatin Discontinued 0 .ROUTE .COMPLEX 90 March 15, 2024 8:06am April 15, 2024 10:15am TAKE 1 TABLET BY MOUTH EVERY DAY Start: 08-17-2023 End: 02-23-2024 take 1 tablet by mouth once daily Rosuvastatin Discontinued 1 TAB PO Daily December 05, 2023 12:00am February 23, 2024 8:54am FreeTextSi tablet Orally Once a day; Note: Source Status: Continue; Provider: Colten Elliott ubidecarenone 200 mg oral ca psule (9 sources) Start: 12-05-2023 End: 04-15-2024 Coenzyme Q10 Active 200 MG P O Daily April 15, 2024 10:14am Start: 08-17-2023 take 1 capsule by mo ut every twenty-four hours Co-Enzyme Q10 200 MG 1 capsule Orally qd Jul, Active co-enzyme Q-10 3 0 MG capsule Take 200 mg by mouth in the morning. Active Completed/Discontinued Medications Medication Drug Class(es) Dates Sig (Normalized) Sig (Original) amLODIPine 5 mg oral tablet (16 sources) Dihydropyridine Calcium Channel Braeden Start: 10-11-2023 End: 03-15-2024 take 5 mg by mouth once daily Amlodipine Discontinued 5 MG PO Daily March 15, 2024 8:03am March 15, 2024 8:07am amoxicillin 875 mg / clavulanate 125 mg oral tablet (2 sources) Penicillin-class Antibacterial Start: 04-15-2024 End: 07-02-2024 take 1 tablet by mouth twice daily at mealtime Amoxicillin-Pot Clavulanate Discontinued 1 TAB PO Twice daily 20 April 15, 2024 12:00am July 02, 2024 2:56pm with food cefTRIAXone (4 sources) Cephalosporin Antibacterial Start: 10-30-2019 Rocephin 500 mg Oct, 1 g pantoprazole 40 mg delayed release oral tablet (18 sources) Proton Pump Inhibitor Start: 10-11-2023 End: 10-14-2024 take 40 mg by mouth once daily 30 minutes before mealtime Pantoprazole Discontinued 40 MG PO Daily March 15, 2024 8:04am April 15, 2024 10:18am 30 MINUTES BEFORE A MEAL Problems Active Problems Problem Classification Problem Date Documented Date Episodic/Chronic Calculus of urinary tract (11 sources) Calculus of ureter; Translations: [Personal history of urinary calculi] Onset: 03-04-2022 Episodic Cardiac dysrhythmias (1 source) Palpitations Episodic Deficiency and other anemia (1 source) Anemia, unspecified Episodic Deficiency and other anemia (2 sources) Anemia 10-11-2023 Episodic Diabetes mellitus without complication (8 sources) Hyperglycemia, unspecified; Translations: [Hyperglycemia] Episodic Disorders of lipid metabolism (12 sources) Hyperlipidemia; Translations: [Hyperlipidemia, unspecified] Chronic Esophageal disorders (9 sources) Gastro-esophageal reflux disease without esophagitis; Translations: [Gastroesophageal reflux disease] Onset: 03-04-2022 Chronic Essential hypertension (2 sources) Hypertensive disorder 10-06-2023 Chronic Genitourinary symptoms and ill-defined conditions (3 sources) Stress incontinence (female) (male); Translations: [Genuine stress incontinence] Onset: 10-11-2023 Chronic Genitourinary symptoms and ill-defined conditions (9 sources) Hematuria, unspecified; Translations: [Microscopic hematuria] Onset: 10-11-2023 Episodic Headache; including migraine (5 sources) Migraine; Translations: [Migraine, unspecified, not intractable, without status migrainosus] Chronic Immunizations and screening for infectious disease (1 source) Encounter for screening for human papillomavirus (HPV); Translations: [ENC SCREENING HUMAN PAPILLOMAVIRUS] Onset: 10-11-2022 Episodic Other aftercare (2 sources) Other alf (current) drug therapy; Translations: [OTH BLACK TOP ROLLER CURRENT DRUG THERAPY] Onset: 03-04-2022 Episodic Other circulatory disease (4 sources) Elevated blood-pressure reading, without diagnosis of hypertension; Translations: [Elevated blood pressure reading without diagnosis of hypertension] Episodic Other circulatory disease (3 sources) Elevated blood pressure; Translations: [Elevated blood-pressure reading, without diagnosis of hypertension] 12-05-2023 Episodic Other connective tissue disease (3 sources) Plantar fasciitis; Translations: [Plantar fascial fibromatosis] 12-05-2023 [...] conditions (not mental disorders or infectious disease) (10 sources) Encounter for screening mammogram for malignant neoplasm of breast; Translations: [Encounter for screening for malignant neoplasm of cervix] Onset: 10-07-2022 Episodic Other upper respiratory infections (4 sources) Acute sinusitis; Translations: [Acute sinusitis, unspecified] 04-15-2024 Episodic Residual codes; unclassified (1 source) Family history of malignant neoplasm of breast; Translations: [FAMILY HX MALIG NEOPLASM OF BREAST] Onset: 12-10-2022 Episodic Residual codes; unclassified (1 source) Family history of malignant neoplasm of other organs or systems; Translations: [FAM HX MALIG NEOPLASM OT ORGN/SYS] Onset: 12-10-2022 Episodic Residual codes; unclassified (1 source) Family history of cancer of colon; Translations: [Family history of malignant neoplasm of digestive organs] 07-02-2024 Episodic Residual codes; unclassified (1 source) Family history of malignant neoplasm of digestive organs; Translations: [Family history of malignant neoplasm of gastrointestinal tract] 07-02-2024 Episodic Past or Other Problems Problem Classification Problem Date Documented Da te Episodic/Chronic Abdominal pain (3 sources) Unspecified abdominal pain; Translations: [UNSPECIFIED ABDOMINAL PAIN] Onset: 03-02-2022 Episodic Results Test Name Value Interpretation Reference Range Facility Pathology Request for Lab Co rpon 09-13-2024 Pathology Request for Lab Marino Normal [facility] Comment on above: Order Comment: PATHO LOGY GI SPECIMEN Result Comment: See report. Scanned copy available in EMR. PERFORMED BY: [place] [address] PATHOLOGIST CAMPAIGN SPECIALIST COBY RAMIREZ M.D. Performed By: #### P ATH TO [facility] #### [address] Laboratory - Hematology and Cell countson 06-24-2024 HbA1c (Bld) [Mass fraction] 5.4 % [facility] Laboratory - Chemistry and C hemistry - challengeon 11-27-2023 Cholesterol in LDL [Mass/Vol] 66 mg/dL [facility] Consent for Procedure/Surger yon 10-23-2023 Consent for Procedure/Surgery [id number]# 1.00TIFF Normal [facility] Consent for Treatmenton Consent for Treatment [id number] .00TIFF Normal [facility] Inpatient Patient Summaryon 10-23-2023 Inpatient Patient Summary [place] [id number] Clinical Summary Person Information Name: FLOR GRIGGS Age: 47 Years : 1975 Sex: Female PCP: Mikey Maravilla DO Marital Status: Race: White Ethnicity: Non- or Language: Telugu Visit Id: Visit Reason: MICROSCOPIC HEMATURIA Speciality: Acuity: Enc Type: Outpatient Med Service: Surgery Arrival: 10/23/2023 09:07:46 Discharge: Dispo Type: Address: [address] [place] [id number] Provider Notes: Diagnosis: Microscopic hematuria Problems Active [...] - Cystoscopy Discharge Instructions (CUSTOM) [facility] IntraOperative Documentson 0 10-23-2023 IntraOperative Documents [id number]# 1.00TIFF [facility] Main OR Intraoperative Recor don 10-23-2023 Main OR Intraoperative Record IntraOp Document Type FTURO Summary Primary Physician: Barb Rain MD Finalized Date/Time: 10/23/23 10:08:49 Pt. Name: FLOR GRIGGS/Sex: 1975 Female Med Rec #: [id number] Physician: Barb Rain MD Financial #: [id number] Pt. Type: O Room/Bed: / Admit/Disch: 10/23/23 09:07:46 - Institution: Case Times FTURO Entry 1 Patient Times In Room 10/23/23 09:56:00 Out Room 10/23/23 10:16:00 Procedure Times Start 10/23/23 10:06:00 Stop 10/23/23 10:11:00 Anesthesia Times Last Modified By: MARY JO Silva RN, Vero 10/23/23 10:08:37 Case Attendance FTURO Entry 1 Entry 2 Entry 3 Case Attendee Koffi PADRON, Barb Silva RN, CNOR, Johnnie CARVALHO, Lizz Pham Role Performed Surgeon - Primary Rack Washer - Primary Scrub - Primary Time In 10/23/23 09:56:00 10/23/23 09:56:00 10/23/23 09:56:00 Time Out 10/23/23 10:16:00 10/23/23 10:16:00 10/23/23 10:16:00 Procedure CYSTOSCOPY LOCAL(.) CYSTOSCOPY LOCAL(.) CYSTOSCOPY LOCAL(.) Comments Last Modified By: Ricardo HICKS, BRIGIDAOR, Ricardo HICKS, BRIGIDAOR, Ricardo HICKS, BRIGIDAOR, Vero 10/23/23 Vero 10/23/23 Vero 10/23/23 10:08:38 10:08:38 [...] bladder Outcomes Met? Yes Last Modified By: MARY JO Silva RN, Vero 10/23/23 09:59:19 Post-Care Text: The patient [...] Out Barb Rain MD, Verified (If Participants MARY JO Silva RN, Applicable) Johnnie Pham REGISTERED HEALTH NURSE, Lizz A Time Out Complete 10/23/23 09:59:00 Allergies Reviewed? [...] Ruthann 10/23/23 10:08:45 Case Comments Finalized By: MARY JO Silva RN, Ruthann Document Signatures Signed By: MARY JO Silva RN, Ruthann 10/23/23 10:08 [facility] Main OR Preoperative Recordo n 10-23-2023 Main OR Preoperative Record Holding Area Document Type FTURO Summary Primary Physician: Barb Rain MD Finalized Date/Time: 10/23/23 09:24:36 Pt. Name: FLOR GRIGGS/Sex: 1975 Female Med Rec #: [id number] Physician: Barb Rain MD Financial #: [id number] Pt. Type: O Room/Bed: / Admit/Disch: 10/23/23 [...] By: Lizz Pearson RN 10/23/23 09:24 Normal [facility] Operative Reporton Operative Report Patient: FLOR GRIGGS Age: 47 years Sex: Female : 1975 Associated Diagnoses: None Author: Barb Rain MD Procedure Operative Information Details: Date/ Time: 10/23/2023 10:14:00. Pre-Op Dx: Microscopic hematuria (KSS86-UK R31.29, Discharge, Medical). Post-Op Dx: Same. Anesthesia [...] follow-up, she will call as needed.. Normal [facility] Comment on above: Result Comment: Elec tronically Signed By: Kofif PADRON, Barb Salomon\.br\Date and Time Signed: 10/23/23 10:16 EST Outpatient Surgery Discharge Instructionon 10-23-2023 Outpatient Surgery Discharge Instruction [place] [id number] Patient Discharge Instructions PERSON INFORMATION Name: FLOR [...] you have a fever over 100 degrees. ANSON Todd JENNIFER, have received the attached patient education materials/instruction s and have verbalized understanding: May we do a follow up call? Yes No I was present when discharge instructions were given Patient Signature Date Clinican/Nurse Signature Date You may receive a survey from [employer] asking you to rate your care experience. Your feedback is important and will help us understand what we do well and how we can improve the quality of care we provide to you, your loved ones and our community. It?s an honor to serve you. Thank you for choosing [facility] Normal [facility] Cytology Cervical or vaginal smear or scraping studyon 10-12-2023 [facility] 024 Physician Referral [id number] 1.00TIFF Normal [facility] RAD - Ultrasound Reporton RAD - Ultrasound Report [id number] .00TIFF Normal [facility] Screenson 10-12-2023 Screens [id number] .00TIFF Normal [facility] Ambulatory Visit Summaryon 0 10-11-2023 Ambulatory Visit [...] Follow-Up Appointments Monday 9:45 AM EST Where: [facility] You Need to Schedule [...] diet free (more content not included)... Normal [facility] Patient Educationon 10-11-19 Patient Education Nephrology Dietary [...] Spinach (cooked), rhubarb, beets, sweet potatoes, and Angolan chard. ? Peanuts. ? Potato chips, canadian fries, and baked potatoes with skin on. ? Nuts and nut products. ? Chocolate. ? If you regularly take a diuretic medicine, make sure to eat at least 1 or 2 servings of fruits or vegetables that are high in potassium each day. These include: ? Avocado. ? Banana. ? Mcalister, prune, carrot, or tomato juice. ? Baked [...] fish oil, or vitamin B6. ? Take rzlc-cpt-symhmad and prescription medicines only as told by your health care provider. These include supplements. What foods sh (more content not included)... Normal [facility] Provider Letteron 10-11-2023 Provider Letter October 11, 2023 [place] [address] : 1975 To Whom It May Concern, Please excuse above patient from work. Date of Appointment: From: 10/11/23 To: _ May Return to Work On:10/11/23 Restrictions: none Comments: Any questions, please call our office Sincerely, [facility] [address], [place] [address] Normal [facility] RAD - Ultrasound Reporton RAD - Ultrasound Report [id number] .00TIFF Normal [facility] MG MAMM SCREEN 3D JAMA CADon [...] melanoma cancer at age 54. LOCATION: [facility] BREAST COMPOSITION: Extremely dense, which lowers [...] St M.D. on 12/01/2022 at 14:12 Normal [facility] PAP ACOG PANEL 2: 30 to 65on 10-12-2022 . . Normal [facility] Comment on above: Result Comment: Perf ormed at: WB Performed By: #### [id number] #### [facility] [address] [place] [address] Dr. Sean Huynh Age Gdln ACOG Testing 30-65 Normal [facility] Comment on above: Performed By: #### [id number] #### [facility] [address] [place] [address] Dr. Sean Huynh DIAGNOSIS: Comment Normal [facility] Comment on above: Result Comment: NEGA TIVE FOR INTRAEPITHELIAL LESION OR MALIGNANCY. Performed at: WB Performed By: #### [id number] #### [facility] [address] [place] [address] Dr. Sean Huynh HPV Aptima Negative Normal Negative [facility] Comment on above: Result Comment: This nucleic acid amplification test detects fourteen high-risk HPV types (16,18,31,33,35,39,45,51,52,56,58,59,66,68) without differentiation. Performed at: =G Performed By: #### [id number] #### [facility] [address] [place] [address] Dr. Sean Huynh HPV Genotype Reflex Comment Normal [facility] Comment on above: Result Comment: Crit eria not met, HPV Genotype not performed. Performed at: WB Performed By: #### [id number] #### [facility] [address] [place] [address] Dr. Sean Huynh Methodology: Comment Normal [facility] Comment on above: Result Comment: This liquid based ThinPrep(R) pap test was screened with the use of an image guided system. Performed at: WB Performed By: #### [id number] #### [facility] [address] [place] [address] Dr. Sean Huynh Note: Comment Normal [facility] Comment on above: Result [...] Performed at: WB Performed By: #### [id number] #### [facility] [address] [place], [place] [address] Dr. Sean Huynh Performed by: Comment Normal [facility] Comment on above: Result Comment: Mariangel Blancas, Radio Recorder (ASCP) Performed at: WB Performed By: #### [id number] #### [facility] [address] [place], [place] [address] Dr. Sean Huynh Specimen adequacy: Comment Normal [facility] Comment on above: Result Comment: Sati sfactory for evaluation. No endocervical component is identified. Performed at: WB Performed By: #### [id number] #### [facility] [address] [place] [address] ABD/PELVIS WO CONon [...] HARLAN HU Date: 2022-03-02 23:28 Normal [facility] CBC AUTO DIFFon 03-02-2022 BASO # 0.1 103/ul Normal 0.0-0.1 [facility] Comment on above: Performed By: #### C BC #### [facility] [address] [place] [address] [address] Sean Huynh Basophils/100 WBC (Bld) 0.8 % Normal 0.2-2.0 [facility] Comment on above: Performed By: #### C BC #### [facility] [address] [place] [address] Dr. Sean Huynh EO # 0.1 103/ul Normal 0.0-0.7 [facility] Comment on above: Performed By: #### C BC #### [facility] [address] [place] [address] Dr. Sean Huynh Eosinophils/100 WBC (Bld) 1.3 % Normal 0.9-7.0 [facility] Comment on above: Performed By: #### C BC #### [facility] [address] [place] [address] Dr. Sean Huynh Erythrocyte distribution width (RBC) [Ratio] 12.5 % Normal 11.0-15.0 [facility] Comment on above: Performed By: #### C BC #### [facility] [address] [place] [address] Dr. Sean Huynh Hematocrit (Bld) [Volume fraction] 37.4 % Normal 36.0-48.0 [facility] Comment on above: Performed By: #### C BC #### [facility] [address] [place] [address] Dr. Sean Huynh Hemoglobin (Bld) [Mass/Vol] 12.6 g/dL Normal 12.0-16.0 [facility] Comment on above: Performed By: #### C BC #### [facility] [address] [place] [address] Dr. Sean Huynh IG # 0.02 10e3/ul Normal 0.00-0.03 [facility] Comment on above: Performed By: #### C BC #### [facility] [address] [place] [address] Dr. Sean Huynh IG % 0.3 % Normal 0.0-0.5 [facility] Comment on above: Performed By: #### C BC #### [facility] [address] [place] [address] Dr. Sean Huynh LYMPH # 2.4 103/ul Normal 1.2-3.8 [facility] Comment on above: Performed By: #### C BC #### [facility] [address] [place] [address] Dr. Sean Huynh Lymphocytes/100 WBC (Bld) 31.6 % Normal 20.5-60.0 [facility] Comment on above: Performed By: #### C BC #### [facility] [address] [place] [address] Dr. Sean Huynh MANUAL DIFF REQ NO Normal [facility] Comment on above: Performed By: #### C BC #### [facility] [address] [place] [address] Dr. Sean Huynh MCH (RBC) [Entitic mass] 29.8 pg Normal 26.7-34.0 [facility] Comment on above: Performed By: #### C BC #### [facility] [address] [place] [address] Dr. Sean Huynh MCHC (RBC) [Mass/Vol] 33.7 g/dL Normal 29.9-35.2 [facility] Comment on above: Performed By: #### C BC #### [facility] [address] [place] [address] Dr. Sean Huynh MCV (RBC) [Entitic vol] 88.4 fL Normal 81.0-99.0 [facility] Comment on above: Performed By: #### C BC #### [facility] [address] [place] [address] Dr. Sean Huynh MONO # 0.8 103/ul Normal 0.3-0.8 [facility] Comment on above: Performed By: #### C BC #### [facility] [address] [place] [address] Dr. Sean Huynh Monocytes/100 WBC (Bld) 10.0 % Normal 1.7-12.0 [facility] Comment on above: Performed By: #### C BC #### [facility] [address] [place], [place] [address] Dr. Sean Huynh NEUT # 4.3 103/ul Normal 1.4-6.5 [facility] Comment on above: Performed By: #### C BC #### [facility] [address] [place] [address] Dr. Sean Huynh Neutrophils/100 WBC (Bld) 56.0 % Normal 43.0-75.0 [facility] Comment on above: Performed By: #### C BC #### [facility] [address] [place] [address] Dr. Sean Huynh Platelet mean volume (Bld) [Entitic vol] 10.5 fL Normal 9.5-13.5 [facility] Comment on above: Performed By: #### C BC #### [facility] [address] [place] [address] Dr. Sean Hyunh PLT 321 103/ul Normal 150-450 [facility] Comment on above: Performed By: #### C BC #### [facility] [address] [place] [address] Dr. Sean Huynh RBC 4.23 106/ul Normal 4.20-5.40 [facility] Comment on above: Performed By: #### C BC #### [facility] [address] [place] [address] Dr. Sean Huynh WBC 7.7 103/ul Normal 4.0-11.0 [facility] Comment on above: Performed By: #### C BC #### [facility] [address] [place] [address] Dr. Sean Huynh ER URINE PROFILEon 2 Bilirubin Ql (U) Negative Normal NEGATIVE [facility] Comment on above: Performed By: #### E RUR #### [facility] [address] [place] [address] Dr. Sean Huynh Clarity (U) CLEAR Normal CLEAR [facility] Comment on above: Performed By: #### E RUR #### [facility] [address] [place] [address] Dr. Sean Huynh Color (U) LT. YELLOW Normal YELLOW [facility] Comment on above: Performed By: #### E RUR #### [facility] [address] [place] [address] Dr. Sean Huynh ERUAHD A micrscopic examination will be performed if indicated. Normal [facility] Comment on above: Performed By: #### E RUR #### [facility] [address] [place] [address] Dr. Sean Huynh Glucose Ql (U) Negative Normal NEGATIVE [facility] Comment on above: Performed By: #### E RUR #### [facility] [address] [place] [address] Dr. Sean Hunyh Hemoglobin Ql (U) Negative Normal NEGATIVE [facility] Comment on above: Performed By: #### E RUR #### [facility] [address] [place] [address] Dr. Sean Huynh Ketones Ql (U) Negative Normal NEGATIVE [facility] Comment on above: Performed By: #### E RUR #### [facility] [address] [place] [address] Dr. Sean Huynh LEUKOCYTES Negative Normal NEGATIVE [facility] Comment on above: Performed By: #### E RUR #### [facility] [address] [place] [address] Dr. Sean Huynh Nitrite Ql (U) Negative Normal NEGATIVE [facility] Comment on above: Performed By: #### E RUR #### [facility] [address] [place] [address] Dr. Sean Huynh pH (U) 7.0 [pH] Normal 5-9 [facility] Comment on above: Performed By: #### E RUR #### [facility] [address] [place] [address] Dr. Sean Huynh SPEC GRAVITY 1.015 Normal 1.005-<=1.025 [facility] Comment on above: Performed By: #### E RUR #### [facility] [address] [place] [address] Dr. Sean Huynh UA PROTEIN Negative Normal NEGATIVE/ TRACE [facility] Comment on above: Performed By: #### E RUR #### [facility] [address] [place] [address] Dr. Sean Huynh UR MICRO IND NOT INDICATED Normal [facility] Comment on above: Performed By: #### E RUR #### [facility] [address] [place] [address] Dr. Sean Huynh Urobilinogen Qn (U) 0.2 {Soumya'U}/dL Normal 0.2 - 1. 0 [facility] Comment on above: Performed By: #### E RUR #### [facility] [address] [place] [address] Dr. Sean Huynh PROF 14(COMP METB)on 022 Albumin [Mass/Vol] 4.0 g/dL Normal 3.4-5.0 [facility] Comment on above: Performed By: #### C MP #### [facility] [address] [place] [address] Dr. Sean Huynh Albumin/Globulin [Mass ratio] 1.0 {ratio} Normal [facility] Comment on above: Performed By: #### C MP #### [facility] [address] [place] [address] Dr. Sean Huynh ALP [Catalytic activity/Vol] 100 U/L Normal 46-116 [facility] Comment on above: Performed By: #### C MP #### [facility] [address] [place] [address] Dr. Sean Huynh ALT [Catalytic activity/Vol] 27 U/L Normal 14-59 [facility] Comment on above: Performed By: #### C MP #### [facility] [address] [place] [address] Dr. Sean Huynh Anion gap [Moles/Vol] 14.4 mmol/L Normal [facility] Comment on above: Performed By: #### C MP #### [facility] [address] [place] [address] Dr. Sean Huynh AST [Catalytic activity/Vol] 17 U/L Normal 15-37 [facility] Comment on above: Performed By: #### C MP #### [facility] [address] [place] [address] Dr. Sean Huynh Bilirubin [Mass/Vol] 0.3 mg/dL Normal 0.2-1.0 [facility] Comment on above: Performed By: #### C MP #### [facility] [address] [address] [address] Sean Huynh Calcium [Mass/Vol] 9.2 mg/dL Normal 8.5-10.1 [facility] Comment on above: Performed By: #### C MP #### [facility] [address] [address] [address] Sean Huynh Chloride [Moles/Vol] 102 mmol/L Normal 98-107 [facility] Comment on above: Performed By: #### C MP #### [facility] [address] [address] [address] Sean Huynh CO2 [Moles/Vol] 25.9 mmol/L Normal 21.0-32.0 [facility] Comment on above: Performed By: #### C MP #### [facility] [address] [place] [address] Dr. Sean Huynh Creatinine [Mass/Vol] 0.80 mg/dL Normal 0.55-1.02 [facility] Comment on above: Performed By: #### C MP #### [facility] [address] [place] [address] Dr. Sean Huynh EGFR-AF JAMAICAN >60 Normal >=60 [facility] Comment on above: Performed By: #### C MP #### [facility] [address] [place] [address] Dr. Sean Huynh EGFR-NON AF JAMAICAN >60 Normal >=60 [facility] Comment on above: Performed By: #### C MP #### [facility] [address] [address] [address] Sean Huynh Globulin (S) [Mass/Vol] 4.0 g/dL Normal [facility] Comment on above: Performed By: #### C MP #### [facility] [address] [address] [address] Sean Huynh Glucose [Mass/Vol] 115 mg/dL Critically high 74-106 [facility] Comment on above: Performed By: #### C MP #### [facility] [address] [address] [address] Sean Huynh Potassium [Moles/Vol] 3.3 mmol/L Critically low 3.5-5.1 [facility] Comment on above: Performed By: #### C MP #### [facility] [address] [place] [address] Dr. Sean Huynh Protein [Mass/Vol] 8.0 g/dL Normal 6.4-8.2 [facility] Comment on above: Performed By: #### C MP #### [facility] [address] [place] [address] Dr. Sean Huynh Sodium [Moles/Vol] 139 mmol/L Normal 136-145 [facility] Comment on above: Performed By: #### C MP #### [facility] [address] [place] [address] Dr. Sean Huynh Urea nitrogen [Mass/Vol] 11.0 mg/dL Normal 7.0-18.0 [facility] Comment on above: Performed By: #### C MP #### [facility] [address] [place] [address] Dr. Sean Huynh Urea nitrogen/Creatinine [Mass ratio] 13.8 mg/mg Normal [facility] Comment on above: Performed By: #### C MP #### [facility] [address] [place] [address] Dr. Sean Huynh Vital Signs Date Time Vital Sign Value Performing Clinician Facility 10-14-2024 09:58-0500 Body mass index (BMI) [Ratio] 35.96 kg/m2 Jessica HIDALGO Work Phone: [facility] 10-14-2024 09:58-0500 Body weight 101.06 kg Jessica HIDALGO Work Phone: [facility] 10-14-2024 09:58-0500 Diastolic blood pressure 80 mm[Hg] Jessica HIDALGO Work Phone: [facility] 10-14-2024 09:58-0500 Systolic blood pressure 120 mm[Hg] Jessica HIDALGO Work Phone: [facility] 07-02-2024 09:41-0400 Body height 165.1 cm [facility] 07-02-2024 09:41-0400 Body mass index (BMI) [Ratio] 36.6 kg/m2 [facility] 07-02-2024 09:41-0400 Body temperature 98.1 [degF] [facility] 07-02-2024 09:41-0400 Body weight 99.79 kg [facility] 07-02-2024 09:41-0400 Diastolic blood pressure 96 mm[Hg] [facility] 07-02-2024 09:41-0400 Heart rate 75 /min [facility] 07-02-2024 09:41-0400 SaO2% (BldA) [Mass fraction] 98 % [facility] 07-02-2024 09:41-0400 Systolic blood pressure 144 mm[Hg] [facility] 12-05-2023 14:36-0400 Body height 165.1 cm [facility] 12-05-2023 14:36-0400 Body mass index (BMI) [Ratio] 36.2 kg/m2 [facility] 12-05-2023 14:36-0400 Body temperature 98.4 [degF] [facility] 12-05-2023 14:36-0400 Body weight 98.88 kg [facility] 12-05-2023 14:36-0400 Diastolic blood pressure 86 mm[Hg] [facility] 12-05-2023 14:36-0400 Heart rate 63 /min [facility] 12-05-2023 14:36-0400 Respiratory rate 18 /min [facility] 12-05-2023 14:36-0400 SaO2% (BldA) [Mass fraction] 97 % [facility] 12-05-2023 14:36-0400 Systolic blood pressure 134 mm[Hg] [facility] 10-11-2023 09:44-0500 Diastolic blood pressure 90 mm[Hg] Barb Rain [facility] 10-11-2023 09:44-0500 Mean blood pressure 111 mm[Hg] Barb Lue [facility] 10-11-2023 09:44-0500 Systolic blood pressure 152 mm[Hg] Barb Lue [facility] 10-11-2023 09:15-0500 Blood Pressure Location Barb Lue [facility] 10-11-2023 09:15-0500 Diastolic blood pressure 98 mm[Hg] Barb Lue [facility] 10-11-2023 09:15-0500 Heart rate 78 /min Barb Lue [facility] 10-11-2023 09:15-0500 Respiratory rate 16 /min Barb Lue [facility] 10-11-2023 09:15-0500 Systolic blood pressure 157 mm[Hg] Barb Lue [facility] 09-15-2023 08:10-0500 Body height 165.1 cm [facility] 09-15-2023 08:10-0500 Body weight 96.61 kg [facility] 09-15-2023 08:10-0500 Diastolic blood pressure 88 mm[Hg] [facility] 09-15-2023 08:10-0500 Systolic blood pressure 136 mm[Hg] [facility] 08-17-2023 12:30-0500 Body height 165.1 cm Mikey Maravilla Other [employer] Other 08-17-2023 12:30-0500 Body mass index (BMI) [Ratio] 36.02 kg/m2 Mikey Maravilla Other [employer] Other 08-17-2023 12:30-0500 Body temperature 99.3 [degF] Mikey Maravilla Other [employer] Other 08-17-2023 12:30-0500 Body weight 98.2 kg Mikey Martawinnie Other [employer] Other 08-17-2023 12:30-0500 Diastolic blood pressure 100 mm[Hg] Mikey Maravilla Other [employer] Other 08-17-2023 12:30-0500 Respiratory rate 18 /min Mikey Martawinnie Other [employer] Other 08-17-2023 12:30-0500 SaO2% (BldA) [Mass fraction] 98 % Mikey Maravilla Other [employer] Other 08-17-2023 12:30-0500 Systolic blood pressure 148 mm[Hg] Mikey Maravilla Other [employer] Other 06-27-2023 09:50-0400 Body height 165.1 cm Mikey Maravilla Other [employer] Other 06-27-2023 09:50-0400 Body mass index (BMI) [Ratio] 35.86 kg/m2 Mikey Maravilla Other [employer] Other 06-27-2023 09:50-0400 Body temperature 98 [degF] Mikey Maravilla Other [employer] Other 06-27-2023 09:50-0400 Body weight 97.75 kg Mikey Maravilla Other [employer] Other 06-27-2023 09:50-0400 Diastolic blood pressure 104 mm[Hg] Mikey Maravilla Other [employer] Other 06-27-2023 09:50-0400 Respiratory rate 18 /min Mikey Maravilla Other [employer] Other 06-27-2023 09:50-0400 SaO2% (BldA) [Mass fraction] 98 % Mikey Maravilla Other [employer] Other 06-27-2023 09:50-0400 Systolic blood pressure 160 mm[Hg] Mikey Maravilla Other [employer] Other Encounters Encounter Date Encounter Type Care Provider Facility Start: 10-14-2024 End: 10-14-2024 Bamboo flowsheet Jessica HIDALGO Work Phone: [facility] Start: 10-14-2024 End: 10-14-2024 Bamboo flowsheet Jessica HIDALGO Work Phone: [facility] Start: 10-14-2024 End: 10-14-2024 Patient encounter procedure Jessica HIDALGO Work Phone: [facility] Start: 10-14-2024 End: 10-14-2024 Periodic preventive med est patient 40-64yrs Jessica HIDALGO Work Phone: [facility] Comment on above: Well woman exam with routine gynecological exam; Breast cancer screening by mammogram Start: 09-13-2024 End: 09-13-2024 ambulatory Mikey Renita Facility:[facility] Start: 07-02-2024 End: 07-02-2024 ambulatory [facility] Work Phone: Start: 07-02-2024 End: 07-02-2024 Encounter for general adult medical examination without abnormal findings [facility] Start: 07-02-2024 End: 07-02-2024 Patient encounter procedure [facility] Work Phone: Start: 06-24-2024 Non-patient / Non-visit [facility] Work Phone: Start: 04-15-2024 End: 04-15-2024 ambulatory [facility] Work Phone: Start: 04-15-2024 End: 04-15-2024 Patient encounter procedure [facility] Jessica Work Phone: Start: 12-05-2023 End: 12-05-2023 ambulatory [facility] Work Phone: Start: 12-05-2023 End: 12-05-2023 Patient encounter procedure [facility] Work Phone: Start: 11-27-2023 Non-patient / Non-visit [facility] Jessica Work Phone: Start: 10-23-2023 End: 10-24-2023 ambulatory Barb Rain Facility:[facility] Start: 10-23-2023 End: 10-23-2023 Patient encounter procedure Barb Rain [facility] Start: 10-12-2023 End: 10-12-2023 ambulatory JESSICA ROBLES Not Available Start: 10-11-2023 End: 10-12-2023 ambulatory Barb Rain Facility:[facility] Start: 10-11-2023 End: 10-11-2023 Patient encounter procedure Barb [place] [facility] Jessica Start: 10-05-2023 End: 10-05-2023 ambulatory Mikey Maravilla Other [employer] Other Start: 10-05-2023 Telephone encounter Mikey Maravilla [facility] Jessica Start: 09-29-2023 ambulatory Barb Rain Facility:[facility] Start: 09-15-2023 End: 09-15-2023 Patient encounter procedure [facility] Jessica Work Phone: Start: 09-14-2023 End: 09-14-2023 ambulatory SAJI GOMES Not Available Start: 08-31-2023 End: 08-31-2023 ambulatory SAJI GOMES Not Available Start: 08-31-2023 End: 08-31-2023 ambulatory SAJI GOMES Not Available Start: 08-28-2023 ambulatory Barb Rain Facility:[facility] Start: 08-17-2023 End: 08-17-2023 ambulatory Mikey Maravilla Other [employer] Other Start: 08-17-2023 Office outpatient vi sit 25 minutes Mikey Maravilla [facility] Start: 07-14-2023 End: 07-14-2023 ambulatory Mikey Maravilla Other [employer] Other Start: 07-14-2023 Telephone encounter Mikey Maravilla [facility] Start: 06-27-2023 End: 06-27-2023 ambulatory Mikey Maravilla Other [employer] Other Start: 06-27-2023 Encounter for genera l adult medical examination without abnormal findings Mikey Maravilla [facility] Start: 06-27-2023 Periodic preventive med est patient 40-64yrs Mikey Maravilla [facility] Start: 12-01-2022 End: 12-02-[address] ORLANDO AKINS . Facility:[facility] Start: 10-07-2022 End: 10-07-[address] ORLANDO AKINS . Facility:[facility] Start: 03-02-2022 End: 03-03-[address] MIKEY MARAVILLA Facility:[facility] Start: 07-04-2017 End: 07-05-2017 Ambulatory DEFAULT PHYSICIAN Facility:[facility] Procedures Date Procedure Procedure Detail Performing Clinician Start: 12-14-2023 Mammography Jessica HIDALGO Work Phone: Start: 10-12-2023 Microscopic observat ion [Identifier] in Cervix by Cyto stain Jessica HIDALGO Work Phone: Start: 10-12-2023 Cytp cerv/vag auto t hin layer prep mnl screen [facility] Romel Nurse Hysterectomy Barb Rain Plan of Treatment Date Care Activity Detail Author Start: 10-12-2026 Screening for malign ant neoplasm of cervix [facility] Start: 10-20-2025 End: 10-20-2025 Patient encounter procedure 10/20/2025 10:00 AM EST Office Visit [facility] [address] [place] [address] Jessica Robles PA [address] [place] [address] [place], [place] [id number] [facility] Start: 12-13-2024 Screening for malign ant neoplasm of breast Mammogram [facility] Start: 10-14-2024 End: 12-12-2025 MG Breast - bilateral Screening Bilateral screening mammogram Imaging Routine Breast cancer screening by mammogram Expected: 10/14/2024 (Approximate), Expires: 12/12/2025 [facility] Work Phone: Comment on above: Expected: 10/14/2024 (Approximate), Expires: 12/12/2025 Start: 10-14-2024 End: 10-14-2024 Patient encounter procedure 10/14/2024 10:00 AM EST Office Visit [facility] [address] [place] [address] Jessica Robles, PA [address] [place] [address] Dr [place], [facility] Arrived [facility] Comment on above: Arrived Start: 07-02-2024 Patient referral [facility] Work Phone: Start: 05-19-2024 Influenza vaccination Influenza Vacc ine (#1) [facility] Start: 2004 Screening for malign ant neoplasm of cervix [facility] Start: 12-24-1995 Screening for malign ant neoplasm of cervix Pap Smear [facility] Start: 1974 Screening for malign ant neoplasm of colon [facility] Comprehensive metabo lic 2000 panel - Serum or Plasma [facility] Comprehensive metabo lic 1999 panel - Serum or Plasma [facility] Insulin [Units/volum e] in Serum or Plasma [facility] Patient referral [facility] Work Phone: THIN PREP TIS PAP AN D HR HPV DNA THIN PREP TIS PAP AND HR HPV DNA Pathology and Cytology Routine Well woman exam with routine gynecological exam Ordered: 10/14/2024 [facility] Comment on above: Ordered: 10/14/2024 [facility] Immunizations Immunization Date Immunization Notes Care Provider Bhargav ni 07-21-2024 influenza virus vaccine, unspecified formulation Jessica HIDALGO Work Phone: [facility] 07-08-2023 Flu Shot - Documentation Purposes Only Mikey Maravilla Other [facility] 07-08-2023 influenza virus vaccine, unspecified formulation Barb Lue [facility] 07-09-2022 influenza virus vaccine, unspecified formulation Barb Lue [facility] 01-21-2021 COVID-19 Vaccine Moderna - Documentation Purposes Only Mikey Maravilla Other [facility] Comment on above: Result Comment: 2023: 39 12-24-2020 COVID-19 Vaccine Moderna - Documentation Purposes Only Mikey Maravilla Other [facility] Comment on above: Result Comment: 2023: 39 07-17-2020 influenza virus vaccine, unspecified formulation Barb Lue [facility] 07-17-2020 influenza, seasonal, injectable Mikey Maravilla Other [facility] 07-13-2019 influenza virus vaccine, unspecified formulation Barb Lue [facility] 07-16-2018 influenza, seasonal, injectable Mikey Girwinnie Other [facility] 07-15-2017 influenza virus vaccine, unspecified formulation Barb Rain [facility] 07-15-2017 influenza, seasonal, injectable Mikey Girvin Other [facility] 07-16-2016 influenza virus vaccine, unspecified formulation Barb Lue [facility] 07-16-2016 influenza, seasonal, injectable Mikey Girvin Other [facility] 07-21-2014 influenza virus vaccine, unspecified formulation Barb Lugeovany [facility] 07-05-2013 influenza, seasonal, injectable, preservative free Mikey Girwinnie Other [facility] 07-05-2012 influenza, seasonal, injectable, preservative free Mikey Girvin Other [facility] Payers Date Payer Category Payer Private Health Insurance [employer] [id number] 2023 Unknown [id number] 1974 Unknown [id number] 1974 Unknown [id number] 1974 Unknown [id number] [id number]. 593 1974 Unknown [id number]. 9 1974 Unknown [id number]. 9 1974 Unknown [id number]. 9 1974 Unknown [id number]. 9 1974 Unknown [id number] 727 1974 Unknown [id number] 727 1959 Unknown [id number] Unknown Unknown [facility] [id number] Social History Date Type Detail Facility Unknown if ever smoked [employer] Other Start: 09-14-2023 End: 10-14-2024 Sex Assigned At [facility] Start: 08-31-2023 End: 10-11-2023 Tobacco smoking status Never smoked tobacco (finding) [facility] Tobacco smoking status Never [facility] Start: 1975 Sex Assigned At Female [facility] Start: 08-31-2023 Tobacco use and exposure Smokeless tobacco non-user [facility] Start: 10-12-2023 End: 10-14-2024 Alcoholic beverage intake Defer [facility] Start: 09-14-2023 End: 10-14-2024 History of Social function [facility] Start: 1975 Sex assigned at Not on file [facility] NEGATED: Highlighted rowStart: NINF History of tobacco use Passive smoker [facility] Functional Status Date Assessment Result Facility 10-23-2023 Functional Status N/A [facility] 10-11-2023 Functional Status N/A [facility] Clinical Notes 06-27-2023 to 10-14-2024 ROCKY Rascon - 10/14/2024 10:00 AM EST Note Date & Type Note Facility 10-14-2024 History of Present illness Narrative Reason for Appointment: Patient ID: Flor Griggs is a 48 y.o. female who presents for Well Women Visit Patient presents today for Annual Exam. MEDICATIONS Current Outpatient Medications Medication Instructions amLODIPine (NORVASC) 5 mg, Daily cetirizine (ZYRTEC) 10 mg, Oral, Daily PRN co-enzyme Q-10 200 mg, Daily Multiple Vitamins-Minerals (Multi Complete) capsule as directed Orally propranolol LA (Inderal LA) 60 MG 24 hr capsule TAKE 1 CAPSULE BY MOUTH EACH MORNING rosuvastatin (Crestor) 5 MG tablet TAKE 1 TABLET BY MOUTH EVERY DAY FOR 30 DAYS ALLERGIES Allergies Allergen Reactions Bacitracin-Polymyxin B Rash PROBLEMS Active Ambulatory Problems Diagnosis Date Noted No Active Ambulatory Problems Resolved Ambulatory Problems Diagnosis Date Noted No Resolved Ambulatory Problems Past Medical History: Diagnosis Date Essential (primary) hypertension (CMS/HCC) GERD (gastroesophageal reflux disease) Kidney stone S/P JU (total abdominal hysterectomy) HISTORY PAST MEDICAL HISTORY SOCIAL HISTORY Past Medical History: Diagnosis Date Essential (primary) hypertension (CMS/HCC) GERD (gastroesophageal reflux disease) Kidney stone S/P JU (total abdominal hysterectomy) Social History Tobacco Use Smoking status: Never Passive exposure: Never Smokeless tobacco: Never Vaping Use Vaping status: Unknown Substance Use Topics Alcohol use: Defer Drug use: Defer FAMILY HISTORY Family History Problem Relation Name Age of Onset Colon cancer Brother Liver cancer Brother Hypertension Maternal Grandmother Cancer Paternal Grandmother SURGICAL HISTORY Past Surgical History: Procedure Laterality Date SECTION, CLASSIC DILATION AND CURETTAGE OF UTERUS HYSTERECTOMY TUMOR REMOVAL on arm REVIEW OF SYSTEMS Review of Systems: Review of Systems Constitutional: Negative. HENT: Negative. Eyes: Negative. Respiratory: Negative. Cardiovascular: Negative. Gastrointestinal: Negative. Genitourinary: Negative. Musculoskeletal: Negative. Skin: Negative. Neurological: Negative. All other systems reviewed and are negative. Hematological: Negative. Endocrine: Negative. Allergic/Immunologic: Negative. OBJECTIVE Objective: Physical Exam Constitutional: Appearance: Normal appearance. Genitourinary: Right Adnexa: not tender and no mass present. Left Adnexa: not tender and no mass present. No cervical discharge. Breasts: Breasts are soft. Right: Normal. Left: Normal. HENT: Head: Normocephalic. Nose: Nose normal. Mouth/Throat: Mouth: Mucous membranes are moist. Cardiovascular: Rate and Rhythm: Normal rate. Pulmonary: Effort: Pulmonary effort is normal. Abdominal: General: Bowel sounds are normal. Palpations: Abdomen is soft. Musculoskeletal: General: Normal range of motion. Cervical back: Normal range of motion. Neurological: General: No focal deficit present. Mental Status: She is alert. Skin: General: Skin is warm and dry. Psychiatric: Mood and Affect: Mood normal. Vitals and nursing note reviewed. Exam conducted with a urban planning professor present. Vitals: Estimated body mass index is 35.96 kg/m as calculated from the following: Height as of 09/14/23: 5' 6 . Weight as of this encounter: 222 lb 12.8 oz. BP: 120/80 No LMP recorded. Patient has had a hysterectomy. ASSESSMENT & PLAN ICD-10-CM 1. Well woman exam with routine gynecological exam Z01.419 THIN PREP TIS PAP AND HR HPV DNA 2. Breast cancer screening by mammogram Z12.31 Bilateral screening mammogram Bilateral screening mammogram Annual: Patient presents today for an annual exam. Patient states she is doing well and has no complaints. Pap was obtained without difficulty and patient given mammogram order to have scheduled/obtained. Orders Placed This Encounter Procedures Bilateral screening mammogram Follow Up: Patient is to return in one year for annual unless needed otherwise. Documented by ROCKY Rascon on behalf of: ROCKY Rascon documented in this encounter [facility] 07-02-2024 Hospital Discharge instructions Ambulatory OrdersReferral to Gastroenterology Time Frame: 07/02/24, Location: None [facility] Work Phone: 04-15-2024 Evaluation note Authored April 15, 2024 10:3 8am The above note written by __ _Lexi Abel____ acting as human recorder, note dictated by _Renita .I performed the above HPI, ROS, and Examination. I formulated and dictated the treatment plan and was present for entire encounter. Mikey Maravilla D.O. [facility] Work Phone: [phone]) 268-862802-05-2024 Note [id number] 10-23-2023 NoteCystoscopy ? Voiding after the procedure: there may be some pain, burning, urgency, frequency and blood tingedurine following the procedure. These symptoms usually resolve [...] if you have a fever over 100 degrees.[facility] 10-23-2023 Hospital Discharge instructions Patient Education 10/23/2023 10:10:52 EU - [...] Address:Unknown When: Unknown Comments:Call for any problems. [facility]01-24-2024 NoteChief Complaint Referral *Hematuria HPI Staff Evaluation requested [...] office if she encounters any issues prior. Ptacknowledges understanding. -Will schedule cystoscopy. The risks and [...] analysis, continued surveillance wit (more content not included)...[facility]:Result Comment: Electronically Signed By: Barb Rain MD\.br\Date and Time Signed: 10/11/23 20:11EST\.br\Electronically Co- Signed By: Bobbi Rivas\.br\Date and Time Co-Signed: 10/11/23 10:36 EST 10-11-2023 Hospital Discharge instructions Patient Education 10/11/2023 10:36:00 Dietary Guidelines [...] about 300 mg of calcium at each meal.Foods that contain 200 500 mg of calcium a serving include: ?8 oz (237 mL) of milk, blftube-goncomzlhmtr-augno milk, and calcium- fortifiedfruit juice. Calcium-fortified means that calcium has been [...] the table and allow each person to addtheir own salt to taste. Use vegetable protein, such as beans, textured vegetable protein (TVP), or tofu, instead of meat inpasta, casseroles, and soups. Meal planning Eat less salt, if told by your dietitian. To do this: ?Avoid eating processed or pre-made food. ?Avoid eating fast food. Eat less animal protein, including cheese, meat, poultry, or fish, if told by your dietitian. To dothis: ?Limit the number of times you have meat, poultry, fish, or cheese each week. Eat a diet free of meat at least 2 days a week. ?Eat only one serving each day of meat, poultry, fish, or seafood. ?When you prepare animal proteins, cut pieces into small portion sizes. For most meat and fish, oneserving is about the size of the palm [...] ?Spinach (cooked), rhubarb, beets, sweet potatoes, and Angolan chard. ?Peanuts. ?Potato chips, canadian fries, and baked potatoes with skin on. ?Nuts and nut products. ?Chocolate. If you regularly take a diuretic medicine, make sure to eat at least 1 or 2 servings of fruits or vegetables that are high in potassium each day. These include: ?Avocado. ?Banana. ?Mcalister, prune, carrot, or tomato juice. ?Baked potato. [...] magnesium, fish oil, or vitamin B6. Take lbrn-ggv-ypcaxge and prescription medicines only as told by [...] Casseroles. Pizza. Lasagna. Frozen meals. Potato chips. Turkish fries. The items listed above may not be a complete list of foods and beverages you should limit. Contact a dietitian for more information. What foods should I avoid? Talk to your dietitian about specific foods you should avoid based on the type of kidney stones youhave and your overall health. Fruits Grapefruit. The item listed above may not be a complete list of foods and beverages you should avoid. Contact adietitian for more information. Summary Kidney stones are [...] provider. Document Revised: 12/15/2022 Document Reviewed: 12/15/2022 [employer] Patient Education 2022 [employer]. Follow Up Care 08/28/2023 13:50:06 With:Koffi PADRON, KARTIK Hayes, URO Address: When: Unknown Comments:Schedule cysto [facility] 11-30-2023 Evaluation note* Encounter Date Diagnosis Assessment Notes Treatment Notes Treatment Clinical Notes Jul, Hyperlipidemia, unspecified hyperlipidemia type (ICD-10 [...] that the soil and dirt here in [place] is very dirty. [place] and he felt this explained her nodule and told her that it was calcified and she was fine . She does not need to return to see him unless needed. Jul, Other alf (current) drug therapy (ICD-10 - Z79.899) Jul, Other Magnesium level was 1.9. [employer] Other 10-10-2023 Evaluation note* Encounter Date Diagnosis [...] contrast and then follow up with a vp cardiovascular. She has never been a smoker. Will [...] was seen in the office today 06-27-23. [employer] Other Evaluation + Plan note Future Appointments Appointment Date:10/23/2023 09:45:00 AM Scheduled Provider: Location:[facility] Appointment Type:Urology FT [facility] evaluation noteNo InformationNortEncompass Health [facility] [employer] Other Evaluation note* Diagnosis Onset Date Resolution Status Elevated blood pressure reading acute Hematuria acute Hyperglycemia acute Hyperlipidemia acute Plantar fasciitis [facility] Work Phone: Evaluation note* Diagnosis Onset Date Resolution Status Acute sinusitis acute [facility] Work Phone: Evaluation note* Diagnosis Well woman exam with routine gynecological exam Routine gynecological examination Breast cancer screening by mammogram documented [facility] - Reported* Type Description Date [...] 10-07-2019 Hospitalization History No know Hospitalization history [employer] Other Hospital course Narrative No data available for this section [facility] progress note No data available for this section [facility] Summary Purpose Family History Relationship Condition Age at Onset Recorded Date/T yesenia Not Specified Hypertension Unknown Relationship Condition Age at Onset Recorded Date/T yesenia mother Hypertension Unknown Relationship Condition Age at Onset Recorded Date/T yesenia mother Hypertension Unknown brother Malignant neoplasm 43 Advance Directives Advance Directive Response Recorded Date/ Time Advance Directives No October 19, 2023 9:22am Reason for Referral Reason appt pt needs cons ult to discuss abnormal findings on CT scan 03/02/[address] and will have repeat CT of chest done Diagnosis 1 Lung nodule seen on imaging study (R91.1) Referral Organization [facility] Referring Provider First Name Mikey Referring Provider Last Name Renita Referring Provider Specialty Family Prac dragan Referred Organization [facility] Referred Provider Corby Reyes Referred Address [address] [place] [place], [place],[address] Referred Provider Specialty Pulmonary Di tomas Referral Priority Routine General Notes Nieves Barry 06/27/2023 11:00:05 AM > referral faxed thru [facility] with visit note, CT chest from 2021 and insurance card. pt understands she will be contacted to schedule this appt. Reason appt pt needs cons ult to evaluate hematuria Diagnosis 1 Hematuria (R31.9) Referral Organization [facility] Referring Provider First Name Mikey Referring Provider Last Name Renita Referring Provider Specialty Family Prac dragan Referred Organization [facility] Referred Provider ALVINOGeovanyBARB Referred Address [address],[place], [place],[address] Referred Provider Specialty Urology Referral Priority Routine General Notes Nieves Barry 08/17/2023 01:16:43 PM > referral faxed thru [facility] with visit note, [facility] lab and insurance card. pt understands she will be contacted to schedule this appt. Chief Complaint and Reason for Visit Chief Complaint Re Evaluate Bp review labs Reason for Visit Elevated blood press ure reading Hematuria Hyperglycemia Hyperlipidemia Plantar fasciitis Chief Complaint telephone/sinus infe ction Reason for Visit Acute sinusitis Chief Complaint telephone/sinus infe ction wellness/review lab Reason for Visit Acute sinusitis Elevated blood pressure reading Family history of colon cancer requiring screening colonoscopy Hyperglycemia Hyperlipidemia Wellness examination Additional Source Comments INFORMATION SOURCE (unrecogn ized section and content) DATE CREATED AUTHOR 03/13/[address] [facility] DATE CREATED AUTHOR AUTHOR'S ORGANIZ ATION 12/11/2022 [facility] DATE CREATED AUTHOR AUTHOR'S ORGANIZ ATION 10/13/2023 [facility] EPIC DATE CREATED AUTHOR AUTHOR'S ORGANIZ ATION 10/24/2023 [facility] DATE CREATED AUTHOR AUTHOR'S ORGANIZ ATION 09/21/2024 [facility] REASON FOR VISIT (unrecogniz ed section and content) Reason Comments Well Women Visit Patient Care team informatio n (unrecognized section [...] December 05, 2023 End: December 05, 2023 Team Status: Inactive Member Role Status Dates Mikey Maravilla DO Primary Care Provide r, Attending Provider Active Start: April 15, 2024 End: April 15, 2024 Team Status: Active Member Role Status Dates Mikey Maravilla DO Primary Care Provide r, Attending Provider Active Start: June 24, 2024 Team Status: Inactive Member Role Status Dates Mikey Maravilla DO Primary Care Provide r, Attending Provider Active Start: July 02, 2024 End: July 02, 2024 Quality Control Technician Relationship Specialty Start Date End Date Mikey Maravilla MD [address] [place] [address] PCP - General Family Medicine 08/31/23 Quality Control Technician Relationship Specialty Start Date End Date Mikey Maravilla MD [address] [place] [address] PCP - General Family Medicine 08/31/23 Goals (unrecognized section and content) Goals may [...] BE BASED ON THE PRIMARY CLINICAL RECORDS. [employer] [facility]. provides no warranty or guarantee of the accuracy or completeness of information in this document.
[2024-10-18 12:08] LABS: Age Gdln ACOG Testing Note (.); HPV Aptima Negative (Negative); IGP, Aptima HPV, rfx 16/18,45 Note (.)
== END 2024-10-14 20:35 | disposition home or self-care (01) ==
LOC: LAB 20:34
PROVIDERS: PCP Family Medicine; Visit Provider Physician Assistant
DX: Z01.419 Encounter for gynecological examination (general) (routine) without abnormal findings (principal)
CPT/HCPCS: 87624; 88175

== ENCOUNTER 2024-12-26 09:14 | Outpatient (OUT) | payer OTHER, SELFPAY ==
--- NOTE | 2024-12-26 09:16 | MM_ITS ---
Patient Name: BENJAMÍN GRIGGS MR#: [id number] : 1975 Exam Date: 12/26/2024 Ordering Doctor: ROCKY Payne . RADIOLOGY REPORT PROCEDURE: MM TOMOSYNTHESIS SCREENING BI COMPARISON: MM TOMOSYNTHESIS SCREENING BI, 12/14/2023. MG MAMM SCREEN 3D JAMA CAD, 12/01/2022. MG MAMM SCREEN 3D JAMA CAD, 11/19/2021. MG MAMM JAMA SCRN W CAD DIG, 06/15/2015. INDICATIONS: Screening Calculator Name NCI Breast Cancer Risk Assessment Tool 5 Year Breast Cancer Risk 1.20% Lifetime Breast Cancer Risk 10.80% Personal Breast Cancer No Personal Ovarian Cancer No Treatments None Family Cancers Grandmother-paternal with breast cancer at age ~60; Grandmother-maternal with melanoma cancer at age ~55. LOCATION: [facility] BREAST COMPOSITION: The breasts are extremely dense, which lowers the sensitivity of mammography. FINDINGS: RIGHT BREAST: No significant suspicious finding. LEFT BREAST: No significant suspicious finding. DIAGNOSTIC CATEGORY 1--NEGATIVE. RECOMMENDATIONS: ROUTINE MAMMOGRAM AND CLINICAL EVALUATION IN 12 MONTHS. PLEASE NOTE: A NORMAL MAMMOGRAM DOES NOT EXCLUDE THE POSSIBILITY OF BREAST CANCER. A CLINICALLY SUSPICIOUS PALPABLE LUMP SHOULD BE BIOPSIED. Dictated by: Earl Julien DO on 12/26/2024 at 10:42 Approved by: Earl Julien DO on 12/26/2024 at 10:45
== END 2024-12-26 09:15 | disposition home or self-care (01) ==
LOC: MAMMO 09:14
PROVIDERS: PCP Family Medicine; Visit Provider Physician Assistant
DX: Z12.31 Encounter for screening mammogram for malignant neoplasm of breast (principal); Z80.3 Family history of malignant neoplasm of breast; Z80.8 Family history of malignant neoplasm of other organs or systems
CPT/HCPCS: 77063; 77067

== ENCOUNTER 2025-01-30 07:35 | Outpatient (OUT) | payer OTHER, SELFPAY ==
--- OUTSIDE RECORDS SUMMARY | 2025-01-30 07:38 | XMS_ITS | CCD ---
Author Organization [facility] CliniSynh Care Team Providers Care Room Service Runner Name Role Phone PHYSICIAN, DEFAULT Unavailable Unavailable PHYSICIAN, DEFAULT Unavailable Unavailable RENITA, DR JENSEN Primary Care Unavailable MICHAEL, DR EMELYN Burns Admitting Unavailable MICHAEL, DR EMELYN Burns Attending Unavailable MICHAEL, DR EMELYN Burns Consulting Unavailable HARLAN HU Consulting Unavailable ABDOULASIGiovana ., DR PERRY Admitting Unavailabl e KARASIK ., DR PERRY Attending Unavaileneida MARAVILLA, DR JENSEN Primary Care Unavailable KARASIK ., DR PERRY Consulting Unavaileneida e TYRESE, DR TUNG Burns Consulting Unavailable KARASIK ., DR PERRY Admitting Unavailabl e KARRYAN ., DR PERRY Attending Unavaileneida MARAVILLA, DR JENSEN Primary Care Unavailable KARRYAN ., DR PERRY Consulting Mikey Layton Mikey Maravilla Primary Care Physician [phone] Barb Rain Attending Unavailable Mikey Maravilla Referring Unavailable Barb Rain Attending Unavailable Barb Rain Referring Unavailable Barb Rain Admitting Unavailable Mikey Maravilla Primary Care Unavailable Kacy Manzano Attending Unavailable Kacy Manzano Admitting Unavailable Mikey Maravilla MD Primary Care Provider [phone] JESSICA ROBLES Attending Unavailable Allergies Allergy Classification Reported Allergen(s) Allergy Type Date of Onset Reaction(s) Facility (8 sources) Omeprazole Drug Allergy 4 did not control heartburn 2021 [facility] (8 sources) Seasonal allergy Propensity to adverse reactions 4 Unknown, Unknown Reaction [facility] Comment on above: Did not work (1 source) No Known Medication Allergies; Translations: [No Known Medication Allergies] Propensity to adverse reactions (disorder) [facility] Repository (5 sources) Bacitracin / Polymyxin B Drug Allergy 4 Rash [facility] Medications Current Medications Medication Drug Class(es) Dates Sig (Normalized) Sig (Original) Co-Enzyme Q10 200 MG (1 source) Start: 08-17-2023 take 1 capsule by mouth once daily Co-Enzyme Q10 200 MG 1 capsule Orally qd Jul, Active CoQ10 (2 sources) Start: 10-11-2023 CoQ10 Oral, Daily, Refills(s) 0 Start Date: 10/11/23 Status: Ordered Multi Vitamin+ (2 sources) Start: 10-11-2023 Multi Vitamin+ Refill(s) 0 Start Date: 10/11/23 Status: Ordered Multiple Vitamins-Minerals (Multi Complete) capsule (5 sources) Multiple Vitamins-Minerals (Multi Complete) capsule as directed Orally Active Multivitamin preparation (5 sources) Start: 12-05-2023 take 1 tablet by mouth once daily Multivitamin Active 1 TAB PO Daily December 05, 2023 12:00am Multivitamin Act aneesh Multivitamin tablet (1 source) Start: 12-05-2023 take 1 tablet by mouth once daily Multivitamin tablet Active 1 TAB PO Daily December 05, 2023 12:00am 24 hr propranolol hydrochloride 60 mg extended release oral capsule (20 sources) beta-Adrenergi c Braeden Start: 04-15-2024 End: 04-15-2024 take 1 capsule by mouth once daily Propranolol 60 mg capsule,extended release 24 hr Active 60 MG PO Daily April 15, 2024 10:16am Start: 02-22-2024 End: 04-15-2024 take 1 capsule by mouth once daily in the morning Propranolol 60 mg capsule,extended release 24 hr Discontinued 0 .ROUTE .COMPLEX 90 March 15, [...] Start Date: 10/11/23 Status: Ordered Start: 08-17-2023 End: 02-22-2024 take 1 capsule by mouth every twenty-four hours Propranolol 60 mg capsule,extended release 24 hr Discontinued MG PO December 05, 2023 12:00am February 22, 2024 9:16am FreeTextSig: TAKE 1 CAPSULE BY MOUTH EACH MORNING; Note: Source Status: Continue; Provider: Renita Jensen ( ) Start: 08-17-2023 take 1 capsule by mo uth once daily in the morning Inderal LA 60 MG 1 capsule Orally qd am for 30 days Jul, Active rosuvastatin calcium 5 mg oral tablet (20 sources) HMG-CoA Reductase Inhibitor Start: 04-15-2024 take 1 tablet by mouth once daily Rosuvastatin 5 mg tablet Active 5 MG PO Daily April 15, 2024 10:15am Start: 02-23-2024 End: 04-15-2024 take 1 tablet by mouth once daily Rosuvastatin 5 mg tablet Discontinued 0 .ROUTE .COMPLEX 90 March 15, 2024 8:06am April 15, 2024 10:15am TAKE 1 TABLET BY MOUTH EVERY DAY Start: 08-17-2023 End: 02-23-2024 take 1 tablet by mouth once daily Rosuvastatin 5 mg tablet Discontinued 1 TAB PO Daily December 05, 2023 12:00am February 23, 2024 8:54am FreeTextSi tablet Orally Once a day; Note: Source Status: Continue; Provider: Colten Elliott ubidecarenone 200 mg oral capsule (13 sources) Start: 12-05-2023 End: 04-15-2024 take 10 capsules by mouth once daily Coenzyme Q10 200 mg capsule Active 200 MG PO Daily April 15, 2024 10:14am Start: 08-17-2023 take 1 capsule by mo uth every twenty-four hours Co-Enzyme Q10 200 MG 1 capsule Orally qd Jul, Active co-enzyme Q-10 3 0 MG capsule Take 200 mg by mouth in the morning. Active Completed/Discontinued Medications Medication Drug Class(es) Dates Sig (Normalized) Sig (Original) amLODIPine 5 mg oral tablet (20 sources) Dihydropyridine Calcium Channel Braeden Start: 10-11-2023 End: 03-15-2024 take 1 tablet by mouth once daily Amlodipine 5 mg tablet Discontinued 1 TAB PO Daily December 05, 2023 12:00am March 15, 2024 8:04am FreeTextSig: TAKE 1 TABLET BY MOUTH EVERY DAY; Note: Source Status: Continue; Provider: Colten Elliott amoxicillin 875 mg / clavulanate 125 mg oral tablet (3 sources) Penicillin-class Antibacterial Start: 04-15-2024 End: 07-02-2024 take 1 tablet by mouth twice daily at mealtime Amoxicillin-Pot Clavulanate 875-125 mg tablet Discontinued 1 TAB PO Twice daily 20 April 15, 2024 12:00am July 02, 2024 2:56pm with food [id number] Are-Ibmb-Sgx-Asb-C (1 source) Osmotic Laxative, Vitamin C Start: 07-09-2024 End: 01-07-2025 [id number] Ire-Zhdy-Yrm-Asb- C (Plenvu) 140-9-5.2 gram powder in packet, sequential Discontinued 140 ML PO .COMPLEX 1 July 09, 2024 12:00am January 07, 2025 2:47pm First does at 4pm the day before the colonoscopy; second dose at 11pm the night before the colonoscopy. cefTRIAXone (4 sources) Cephalosporin Antibacterial Start: 10-30-2019 Rocephin 500 mg Oct, 1 g cetirizine hydrochloride 10 mg oral tablet (17 sources) Histamine-1 Receptor Antagonist Start: 12-05-2023 End: 07-02-2024 take 1 tablet by mouth once daily Cetirizine (Zyrtec) 10 mg tablet Discontinued 10 MG PO Daily April 15, 2024 10:14am July 02, 2024 2:57pm pantoprazole 40 mg delayed release oral tablet (20 sources) Proton Pump Inhibitor Start: 10-11-2023 End: 10-14-2024 take 1 tablet by mouth once daily 30 minutes before mealtime Pantoprazole 40 mg tablet,delayed release (DR/EC) Discontinued 40 MG PO December 05, 2023 12:00am March 15, 2024 8:04am FreeTextSig: TAKE 1 TABLET BY MOUTH ONCE A DAY 30 MINUTES BEFORE A MEAL; Note: Source Status: Taking; Refills: 3; Provider: Colten Elliott Problems Active Problems Problem Classification Problem Date Documented Date Episodic/Chronic Allergic reactions (2 sources) Allergic condition; Translations: [Allergy, unspecified, initial encounter] 01-07-2025 Episodic Calculus of urinary tract (11 sources) Calculus of ureter; Translations: [Personal history of urinary calculi] Onset: 03-04-2022 Episodic Cardiac dysrhythmias (1 source) Palpitations Episodic Deficiency and other anemia (1 source) Anemia, unspecified Episodic Deficiency and other anemia (2 sources) Anemia 10-11-2023 Episodic Diabetes mellitus without complication (10 sources) Hyperglycemia, unspecified; Translations: [Hyperglycemia] Episodic Disorders of lipid metabolism (14 sources) Hyperlipidemia; Translations: [Hyperlipidemia, unspecified] Chronic Esophageal disorders (10 sources) Gastro-esophageal reflux disease without esophagitis; Translations: [Gastroesophageal reflux disease] Onset: 03-04-2022 Chronic Essential hypertension (2 sources) Hypertensive disorder 10-06-2023 Chronic Genitourinary symptoms and ill-defined conditions (3 sources) Stress incontinence (female) (male); Translations: [Genuine stress incontinence] Onset: 10-11-2023 Chronic Genitourinary symptoms and ill-defined conditions (10 sources) Hematuria, unspecified; Translations: [Microscopic hematuria] Onset: 10-11-2023 Episodic Headache; including migraine (5 sources) Migraine; Translations: [Migraine, unspecified, not intractable, without status migrainosus] Chronic Immunizations and screening for infectious disease (1 source) Encounter for screening for human papillomavirus (HPV); Translations: [ENC SCREENING HUMAN PAPILLOMAVIRUS] Onset: 10-11-2022 Episodic Other aftercare (2 sources) Other halfway (current) drug therapy; Translations: [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] Onset: 03-04-2022 Episodic Other circulatory disease (5 sources) Elevated blood-pressure reading, without diagnosis of hypertension; Translations: [Elevated blood pressure reading without diagnosis of hypertension] Episodic Other circulatory disease (4 sources) Elevated blood pressure; Translations: [Elevated blood-pressure reading, without diagnosis of hypertension] 12-05-2023 Episodic Other connective tissue disease (4 sources) Plantar fasciitis; Translations: [Plantar fascial fibromatosis] 12-05-2023 Episodic Other connective tissue disease (1 source) Plantar fascial fibromatosis; Translations: [Plantar fascial fibromatosis] 12-05-2023 Episodic Other lower respiratory disease (4 sources) Solitary nodule of lung; Translations: [Solitary pulmonary nodule] Episodic Other lower respiratory disease (2 sources) Solitary pulmonary nodule Episodic Other lower respiratory disease (2 sources) Nodule of lung 10-06-2023 Episodic Other lower respiratory disease (1 source) Multiple nodules of lung; Translations: [Other nonspecific abnormal finding of lung field] 01-07-2025 Episodic Other lower respiratory disease (1 source) Other nonspecific abnormal finding of lung field; Translations: [Other nonspecific abnormal finding of lung field] 01-07-2025 Episodic Other nutritional; endocrine; and metabolic disorders [...] Onset: 10-07-2022 Episodic Other upper respiratory infections (5 sources) Acute sinusitis; Translations: [Acute sinusitis, unspecified] 04-15-2024 Episodic Residual codes; unclassified (1 source) Family history of malignant neoplasm of breast; Translations: [FAMILY HX MALIG NEOPLASM OF BREAST] Onset: 12-10-2022 Episodic Residual codes; unclassified (1 source) Family history of malignant neoplasm of other organs or systems; Translations: [FAM HX MALIG NEOPLASM OTH ORGN/SYS] Onset: 12-10-2022 Episodic Residual codes; unclassified (2 sources) Family history of cancer of colon; Translations: [...] Test Name Value Interpretation Reference Range Facility MM TOMOSYNTHESIS SCREENING B Ion 12-26-2024 [place] [address] Mammography Report Signed Patient: FLOR GRIGGS MR#: [id number] : 1975 Acct:[id number] Age/Sex: 49 / F ADM Date: 12/26/24 Loc: MAMMO Attending Dr: Jessica Robles Ordering Physician: Jessica Robles Results: Date of Service: 12/26/24 Follow Up: Procedure(s): MM tomosynthesis screening BI Accession Number(s): [id number] cc: Jessica Robles; MIKEY MARAVILLA Patient Name: FLOR GRIGGS MR#: [id number] : 1975 Exam Date: 12/26/2024 Ordering Doctor: ROCKY Robles . RADIOLOGY REPORT PROCEDURE: MM TOMOSYNTHESIS SCREENING BI COMPARISON: MM TOMOSYNTHESIS SCREENING BI, 12/14/2023. MG MAMM SCREEN 3D JAMA CAD, 12/01/2022. MG MAMM SCREEN 3D JAMA CAD, 11/19/2021. MG MAMM JAMA SCRN W CAD DIG, 06/15/2015. INDICATIONS: Screening Calculator Name NCI Breast Cancer Risk Assessment Tool 5 Year Breast Cancer Risk 1.20% Lifetime Breast Cancer Risk 10.80% Personal Breast Cancer No Personal Ovarian Cancer No Treatments None Family Cancers Grandmother-paternal with breast cancer at age 60; Grandmother-maternal with melanoma cancer at age 55. LOCATION: [facility] BREAST COMPOSITION: The breasts are extremely dense, which lowers the sensitivity of mammography. FINDINGS: RIGHT BREAST: No significant suspicious finding. LEFT BREAST: No significant suspicious finding. DIAGNOSTIC CATEGORY 1--NEGATIVE. RECOMMENDATIONS: ROUTINE MAMMOGRAM AND CLINICAL EVALUATION IN 12 MONTHS. PLEASE NOTE: A NORMAL MAMMOGRAM DOES NOT EXCLUDE THE POSSIBILITY OF BREAST CANCER. A CLINICALLY SUSPICIOUS PALPABLE LUMP SHOULD BE BIOPSIED. Dictated by: Earl Julien DO on 12/26/2024 at 10:42 Approved by: Earl Julien DO on 12/26/2024 at 10:45 Dictated By: Earl Julien D.O. Signed By: 12/26/24 1047 DD/ 1046 TD/TT: Global Marketing Intern: [facility] Radiology, Radiologist, MD - 12/26/2024 [place] [address] Mammography Report Signed Patient: FLOR GRIGGS MR#: [id number] : 1975 Acct:[id number] Age/Sex: 49 / F ADM Date: 12/26/24 Loc: MAMMO Attending Dr: Jessica Robles Ordering Physician: Jessica Robles Results: Date of Service: 12/26/24 Follow Up: Procedure(s): MM tomosynthesis screening BI Accession Number(s): [id number] cc: Jessica Robles; MIKEY MARAVILLA Patient Name: FLOR GRIGGS MR#: [id number] : 1975 Exam Date: 12/26/2024 Ordering Doctor: ROCKY Robles . RADIOLOGY REPORT PROCEDURE: MM TOMOSYNTHESIS SCREENING BI COMPARISON: MM TOMOSYNTHESIS SCREENING BI, 12/14/2023. MG MAMM SCREEN 3D JAMA CAD, 12/01/2022. MG MAMM SCREEN 3D JAMA CAD, 11/19/2021. MG MAMM JAMA SCRN W CAD DIG, 06/15/2015. INDICATIONS: Screening Calculator Name NCI Breast Cancer Risk Assessment Tool 5 Year Breast Cancer Risk 1.20% Lifetime Breast Cancer Risk 10.80% Personal Breast Cancer No Personal Ovarian Cancer No Treatments None Family Cancers Grandmother-paternal with breast cancer at age 60; Grandmother-maternal with melanoma cancer at age 55. LOCATION: [facility] BREAST COMPOSITION: The breasts are extremely dense, which lowers the sensitivity of mammography. FINDINGS: RIGHT BREAST: No significant suspicious finding. LEFT BREAST: No significant suspicious finding. DIAGNOSTIC CATEGORY 1--NEGATIVE. RECOMMENDATIONS: ROUTINE MAMMOGRAM AND CLINICAL EVALUATION IN 12 MONTHS. PLEASE NOTE: A NORMAL MAMMOGRAM DOES NOT EXCLUDE THE POSSIBILITY OF BREAST CANCER. A CLINICALLY SUSPICIOUS PALPABLE LUMP SHOULD BE BIOPSIED. Dictated by: Earl Julien DO on 12/26/2024 at 10:42 Approved by: Earl Julien DO on 12/26/2024 at 10:45 Dictated By: Earl Julien D.O. Signed By: 12/26/24 1047 DD/ 1046 TD/TT: Global Marketing Intern: [facility] Radiology Study observation (narrative) [facility] MM TOMOSYNTHESIS SCREENING B IOrdered By: Radiologist Radiology on 12-26-2024 [facility] [employer] Work Phone: IGP,APTIMA HPV,AGE GDLNon AGE GDLN ACOG TESTING Note . [facility] Comment on above: TESTS RESULT FLAG UN ITS REF RANGE LAB Clinician Provided Cytology Information Source.............Vagina No. of containers..01 ThinPrep Vial Age Algo ACOG Alie... FLAG LEGEND: L-Low Normal,H-High Normal,LL-Alert Low,HH-Alert High <-Panic Low,>-Panic High,A-Abnormal,AA-Critical Abnormal Performed at: 01 =G [address] [address] Kaylyn Saldana MD, HPV APTIMA Negative Negative [facility] e Comment on above: This nucleic acid am plification test detects fourteen high- risk HPV types (16,18,31,33,35,39,45,51,52,56,58,59,66,68) without differentiation. Performed at: =[address] [id number] Carpenters: Kaylyn Saldana MD, Phone: [phone] Performed at: [address] [id number] Carpenters: Kaylyn Saldana MD, Phone: [phone] IGP, APTIMA HPV, RFX 16/18,45 Note . [facility] Comment on above: TESTS RESULT FLAG UN ITS REF RANGE LAB DIAGNOSIS: 02 NEGATIVE FOR INTRAEPITHELIAL LESION OR MALIGNANCY. Specimen adequacy: 02 Satisfactory for evaluation. No endocervical component is identified. Performed by: 02 Hilaria Wallace, Assistant Women'S Soccer Coach (ASC) . 02 Note: Note 02 The Pap smear is a screening test designed to aid in the detection of premalignant and malignant conditions of the uterine cervix. It is not a diagnostic procedure and should not be used as the sole means of detecting cervical cancer. Both false-positive and false-negative reports do occur. Test Methodology: Note 02 This liquid based ThinPrep(R) pap test was screened with the use of an image guided system. HPV Genotype Reflex Note 02 Criteria not met, HPV Genotype not performed. FLAG LEGEND: L-Low Normal,H-High Normal,LL-Alert Low,HH-Alert High <-Panic Low,>-Panic High,A-Abnormal,AA-Critical Abnormal Performed at: 02 [address] [facility] [address] [place] [address] Kaylyn Saldana MD, SPATULA-ALONE VAGINA [facility] Human papilloma virus 16+18+ 31+33+35+39+45+51+52+56+58+59+66+68 DNA [Presence] in [place] 10-14-2024 HPV 16+18+31+33+35+39+4 5+51+52+56+58+59+66 +68 DNA Probe+sig amp Ql (Cvx) Human papilloma virus 16+18+31+33+35+39+45+ 51+52+56+58+59+66+68 DNA [Presence] in Cer Negative [facility] Comment on above: This nucleic acid am plification test detects fourteen high- risk HPV types (16,18,31,33,35,39,45,51,52,56,58,59,66,68)without differentiation.Performed at: =G - [facility] [address] [id number] Director: Kaylyn Saldana MD, Phone: [phone] at: - [facility] [address] [id number] Director: Kaylyn Saldana MD, Phone: [phone] No Panel Informationon 10-14 HPV High Risk Other Comment Note . [facility] Comment on above: TESTS RESULT FLAG UN ITS REF RANGE LAB NICOLAS GNOSIS: 02 NEGATIVE FOR INTRAEPITHELIAL LESION OR MALIGNANCY.Specimen adequacy: 02 Satisfactory for evaluation. No endocervical component is identified.Performed by: 02 Hilaria Wallace, Assistant Women'S Soccer Coach (ASCP). 02Note: Note 02 The Pap smear is a screening test designed to aid in the detection of premalignant and malignant conditions of the uterine cervix. It is not a diagnostic procedure and should not be used as the sole means of detecting cervical cancer. Both false-positive and false-negative reports do occur.Test Methodology: Note 02 This liquid based ThinPrep(R) pap test was screened with the use of an image guided system.HPV Genotype Reflex Note 02 Criteria not met, HPV Genotype not performed. ---- FLAG LEGEND: L-Low Normal,H-High Normal,LL-Alert Low,HH-Alert High <-Panic Low,>-Panic High,A-Abnormal,AA-Critical Abnormal --Performed at:02 WB [facility] [place] [address] [place] [address] Kaylyn Saldana MD, Reference Lab Test Patient Age Note . [facility] Comment on above: TESTS RESULT FLAG UN ITS REF RANGE LAB Clinician Provided Cytology Information Source.............Vagina No. of containers..01 ThinPrep VialAge Juan Joséo ALEXOG Alie... FLAG LEGEND: L-Low Normal,H-High Normal,LL-Alert Low,HH-Alert High <-Panic Low,>-Panic High,A-Abnormal,AA-Critical Abnormal --Performed at:01 =G [facility] [place] [address] [place] [address] Kaylyn Saldana MD, Pathology Request for Lab Co rpon 09-13-2024 Pathology Request for Lab Marino Normal [facility] Comment on above: Order Comment: PATHO LOGY GI SPECIMEN Result Comment: See report. Scanned copy available in EMR. PERFORMED BY: [place] [id number] PATHOLOGIST SPEEDOMETER MECHANIC COBY RAMIREZ M.D. Performed By: #### P ATH TO [facility] #### [place] [id number] [facility] Laboratory - Hematology and Cell countson 06-24-2024 HbA1c (Bld) [Mass fraction] 5.4 % [facility] Laboratory - Chemistry and C hemistry - challengeon 11-27-2023 Cholesterol in LDL [Mass/Vol] 66 mg/dL [facility] Consent for Procedure/Surger yon 10-23-2023 Consent for Procedure/Surgery [id number]# 1.00TIFF Normal [facility] Consent for Treatmenton Consent for Treatment [id number]#1 .00TIFF Normal [facility] Inpatient Patient Summaryon 10-23-2023 Inpatient Patient Summary [address] [address] Clinical Summary Person Information Name: FLOR GRIGGS Age: 47 Years : 1975 Sex: Female PCP: Mikey Maravilla DO Marital Status: Race: White Ethnicity: Non- or Language: Cape Verdean Visit Id: Visit Reason: MICROSCOPIC HEMATURIA Speciality: Acuity: Enc Type: Outpatient Med Service: Surgery Arrival: 10/23/2023 09:07:46 Discharge: Dispo [facility]: [facility] [address] [place] [id number] Provider Notes: Diagnosis: Microscopic hematuria Problems Active [...] Information: EU - Cystoscopy Discharge Instructions (CUSTOM) [facility] IntraOperative Documentson 0 10-23-2023 IntraOperative Documents [id number] 1.00TIFF [facility] Main OR Intraoperative Recor don 10-23-2023 Main OR Intraoperative Record IntraOp Document Type FTURO Summary Primary Physician: Barb Rain MD Finalized Date/Time: 10/23/23 10:08:49 Pt. Name: FLOR GRIGGS Markus/Sex: 1975 Female Med Rec #: [id number] Physician: Barb Rain MD Financial #: [id number] Pt. Type: O Room/Bed: / Admit/Disch: 10/23/23 09:07:46 - Institution: Case Times FTURO Entry 1 Patient Times In Room 10/23/23 09:56:00 Out Room 10/23/23 10:16:00 Procedure Times Start 10/23/23 10:06:00 Stop 10/23/23 10:11:00 Anesthesia Times Last Modified By: Ricardo HICKS, Vero CAMARGO 10/23/23 10:08:37 Case Attendance FTURO Entry 1 Entry 2 Entry 3 Case Attendee oKffi PADRON, Barb Silva RN, MARY JO, Lizz Blair CST Role Performed Surgeon - Primary It Service Manager - Primary Scrub - Primary Time In [...] Description CYSTO Primary Procedure Yes Primary Surgeon Barb Rain MD Start 10/23/23 10:06:00 Stop 10/23/23 10:11:00 Anesthesia Type Local Surgical Service Urology Wound Class 2 - Clean-Contaminated Last Modified By: MARY JO Silva RN, Vero 10/23/23 10:08:39 General Case Data FTURO [...] Ricardo HICKS, BRIGIDAOR, Applicable) Johnnie Pham CST, Kimberly A Time Out Complete 10/23/23 09:59:00 Allergies [...] MARY JO Silva RN, Ruthann 10/23/23 10:08 [facility] Main OR Preoperative Recordo n 10-23-2023 Main OR Preoperative Record Holding Area Document Type FTURO Summary Primary Physician: Barb Rain MD Finalized Date/Time: 10/23/23 09:24:36 Pt. Name: FLOR GRIGGS/Sex: 1975 Female Med Rec #: [id number] Physician: Barb Rain MD Financial #: [id number] Pt. Type: O Room/Bed: / Admit/Disch: 10/23/23 [...] By: Lizz Pearson RN 10/23/23 09:24 [facility] Operative Reporton Operative Report Patient: FLOR GRIGGS Age: 47 years Sex: Female : 1975 Associated Diagnoses: None Author: Barb Rain MD Procedure Operative Information Details: Date/ Time: 10/23/2023 10:14:00. Pre-Op Dx: Microscopic hematuria ([id number] R31.29, Discharge, Medical). Post-Op Dx: Same. Anesthesia [...] follow-up, she will call as needed.. Normal [facility] Comment on above: Result Comment: Elec tronically Signed By: Barb Rain MD\.br\Date and Time Signed: 10/23/23 10:16 EST Outpatient Surgery Discharge Instructionon 10-23-2023 Outpatient Surgery Discharge Instruction [place] [address] Patient Discharge Instructions PERSON INFORMATION Name: FLOR [...] you have a fever over 100 degrees. I, GRIGGSFLRO, have received the attached patient education materials/instruction [...] to serve you. Thank you for choosing [facility] Normal [facility] Cytology Cervical or vaginal smear or scraping studyon 10-12-2023 [facility] Phys[facility] Ref[facility] 024 Physician Referral [id number]# 1.00TIFF [facility] RAD - Ultrasound Reporton RAD - Ultrasound Report [id number] .00TIFF [facility] Screenson 10-12-2023 Screens [id number] .00TIFF Normal [facility] Ambulatory Visit Summaryon 0 10-11-2023 Ambulatory [...] Follow-Up Appointments Monday 9:45 AM EST Where: [facility] Urology Surgical Services You Need to [...] diet free (more content not included)... [facility] Patient Educationon 10-11-19 Patient Education Nephrology [...] Spinach (cooked), rhubarb, beets, sweet potatoes, and Somali chard. ? Peanuts. ? Potato chips, italian fries, and baked potatoes with skin on. ? Nuts and nut products. ? Chocolate. ? If you regularly take a diuretic medicine, make sure to eat at least 1 or 2 servings of fruits or vegetables that are high in potassium each day. These include: ? Avocado. ? Banana. ? [place], prune, carrot, or tomato juice. ? Baked [...] fish oil, or vitamin B6. ? Take vung-jxw-awhtjzv and prescription medicines only as told by your health care provider. These include supplements. What foods sh (more content not included)... [facility] [place] [facility] Provider Letteron 10-11-2023 Provider Letter October 11, [address] [place] [address] : 1975 To Whom It May Concern, Please excuse above patient from work. Date of Appointment: From: 10/11/23 To: _ May Return to Work On:10/11/23 Restrictions: none Comments: Any questions, please call our office Sincerely, [facility] [address], [place] [address] [facility] [place] [facility] RAD - Ultrasound Reporton RAD - Ultrasound Report [id number] Normal [facility] MG MAMM SCREEN 3D JAMA CADon [...] melanoma cancer at age 54. LOCATION: [facility] BREAST COMPOSITION: Extremely dense, which lowers the [...] St M.D. on 12/01/2022 at 14:[address] [facility] PAP ACOG PANEL 2: 30 to 65on 10-12-2022 . . Normal [facility] Comment on above: Result Comment: Perf ormed at: WB Performed By: #### [id number] #### [facility] [address] [address] [address] Sean Huynh Age Gdln ACOG Testing 30-[address] [facility] Comment on above: Performed By: #### [id number] #### [facility] [address] [place] [address] Dr. Sean Huynh DIAGNOSIS: Comment Normal [facility] Comment on above: Result Comment: NEGA TIVE FOR INTRAEPITHELIAL LESION OR MALIGNANCY. Performed at: WB Performed By: #### [id number] #### [facility] [address] [place] [address] Dr. Sean Huynh HPV Aptima Negative Normal Negative [facility] Comment on above: Result Comment: This nucleic acid amplification test detects fourteen high-risk HPV types (16,18,31,33,35,39,45,51,52,56,58,59,66,68) without differentiation. Performed at: =G Performed By: #### [id number] #### [facility] [address] [place] [address] Dr. Sean Huynh HPV Genotype Reflex Comment Normal [facility] Comment on above: Result Comment: Crit eria not met, HPV Genotype not performed. Performed at: WB Performed By: #### [id number] #### [facility] [address] [place] [address] Dr. Sean Huynh Methodology: Comment Normal [facility] Comment on above: Result Comment: This liquid based ThinPrep(R) pap test was screened with the use of an image guided system. Performed at: WB Performed By: #### [id number] #### [facility] [address] [place] [address] Dr. Sean Huynh Note: Comment Normal [facility] Comment on above: Result Comment: The Pap smear is a screening test designed to aid in the detection of premalignant and malignant conditions of the uterine cervix. It is not a diagnostic procedure and should not be used as the sole means of detecting cervical cancer. Both false-positive and false-negative reports do occur. . Performed at: WB Performed By: #### [id number] #### [facility] [address] [place] [address] Dr. Sean Huynh Performed by: Comment Normal [facility] Comment on above: Result Comment: Mariangel Blancas, Assistant Women'S Soccer Coach (ASCP) Performed at: WB Performed By: #### [id number] #### [facility] [address] [place], [place] [address] Dr. Sean Huynh Specimen adequacy: Comment Normal [facility] Comment on above: Result Comment: Sati sfactory for evaluation. No endocervical component is identified. Performed at: WB Performed By: #### [id number] #### [facility] [address] [place], [place] [address] ABD/PELVIS WO CONon [...] HARLAN HU Date: 2022-03-02 23:28 Normal [facility] CBC AUTO DIFFon 03-02-2022 BASO # 0.1 103/ul Normal 0.0-0.1 [facility] Comment on above: Performed By: #### C BC #### [facility] [address] [place] [address] Dr. Sean Huynh Basophils/100 WBC (Bld) 0.8 % Normal 0.2-2.[address] [facility] Comment on above: Performed By: #### C BC #### [facility] [address] [place] [address] Dr. Sean Huynh EO # 0.1 103/ul Normal 0.0-0.[address] [facility] Comment on above: Performed By: #### C BC #### [facility] [address] [place] [address] Dr. Sean Huynh Eosinophils/100 WBC (Bld) 1.3 % Normal 0.9-7.[address] [facility] Comment on above: Performed By: #### C BC #### [facility] [address] [place] [address] Dr. Sean Huynh Erythrocyte distribution width (RBC) [Ratio] 12.5 % Normal 11.0-15.[address] [facility] Comment on above: Performed By: #### C BC #### [facility] [address] [place] [address] Dr. Sean Huynh Hematocrit (Bld) [Volume fraction] 37.4 % Normal 36.0-48.0 [facility] Comment on above: Performed By: #### C BC #### [facility] [address] [place] [address] Dr. Sean Huynh Hemoglobin (Bld) [Mass/Vol] 12.6 g/dL Normal 12.0-16.[address] [facility] Comment on above: Performed By: #### C BC #### [facility] [address] [place] [address] Dr. Sean Huynh IG # 0.02 10e3/ul Normal 0.00-0.03 [facility] Comment on above: Performed By: #### C BC #### [facility] [address] [place] [address] Dr. Sean Huynh IG % 0.3 % Normal 0.0-0.5 [facility] Comment on above: Performed By: #### C BC #### [facility] [address] [place] [address] Dr. Sean Huynh LYMPH # 2.4 103/ul Normal 1.2-3.8 [facility] Comment on above: Performed By: #### C BC #### [facility] [address] [place] [address] Dr. Sean Huynh Lymphocytes/100 WBC (Bld) 31.6 % Normal 20.5-60.0 [facility] Comment on above: Performed By: #### C BC #### [facility] [address] [place] [address] Dr. Sean Huynh MANUAL DIFF REQ NO Normal [facility] Comment on above: Performed By: #### C BC #### [facility] [address] [place] [address] Dr. Sean Huynh MCH (RBC) [Entitic mass] 29.8 pg Normal 26.7-34.[address] [facility] Comment on above: Performed By: #### C BC #### [facility] [address] [place] [address] Dr. Sean Huynh MCHC (RBC) [Mass/Vol] 33.7 g/dL Normal 29.9-35.[address] [facility] Comment on above: Performed By: #### C BC #### [facility] [address] [place] [address] Dr. Sean Huynh MCV (RBC) [Entitic vol] 88.4 fL Normal 81.0-99.[address] [facility] Comment on above: Performed By: #### C BC #### [facility] [address] [place] [address] Dr. Sean Huynh MONO # 0.8 103/ul Normal 0.3-0.[address] [facility] Comment on above: Performed By: #### C BC #### [facility] [address] [place] [address] Dr. Sean Huynh Monocytes/100 WBC (Bld) 10.0 % Normal 1.7-12.[address] [facility] Comment on above: Performed By: #### C BC #### [facility] [address] [place] [address] Dr. Sean Huynh NEUT # 4.3 103/ul Normal 1.4-6.5 [facility] Comment on above: Performed By: #### C BC #### [facility] [address] [place] [address] Dr. Sean Huynh Neutrophils/100 WBC (Bld) 56.0 % Normal 43.0-75.[address] [facility] Comment on above: Performed By: #### C BC #### [facility] [address] [place] [address] Dr. Sean Huynh Platelet mean volume (Bld) [Entitic vol] 10.5 fL Normal 9.5-13.[address] [facility] Comment on above: Performed By: #### C BC #### [facility] [address] [place] [address] Dr. Sean Huynh PLT 321 103/ul Normal 150-[address] [facility] Comment on above: Performed By: #### C BC #### [facility] [address] [place] [address] Dr. Sean Huynh RBC 4.23 106/ul Normal 4.20-5.[address] [facility] Comment on above: Performed By: #### C BC #### [facility] [address] [place] [address] Dr. Sean Huynh WBC 7.7 103/ul Normal 4.0-11.[address] [facility] Comment on above: Performed By: #### C BC #### [facility] [address] [place] [address] Dr. Sean Huynh ER URINE PROFILEon 2 Bilirubin Ql (U) Negative Normal NEGATIVE [facility] Comment on above: Performed By: #### E RUR #### [facility] [address] [place] [address] Dr. Sean Huynh Clarity (U) CLEAR Normal CLEAR [facility] Comment on above: Performed By: #### E RUR #### [facility] [address] [place] [address] Dr. Sean Huynh Color (U) LT. YELLOW Normal YELLOW [facility] Comment on above: Performed By: #### E RUR #### [facility] [address] [place] [address] Dr. Sean Huynh ERUAHD A micrscopic examination will be performed if indicated. Normal [facility] Comment on above: Performed By: #### E RUR #### [facility] [address] [place] [address] Dr. Sean Huynh Glucose Ql (U) Negative Normal NEGATIVE [facility] Comment on above: Performed By: #### E RUR #### [facility] [address] [place] [address] Dr. Sean Huynh Hemoglobin Ql (U) Negative Normal NEGATIVE [facility] Comment on above: Performed By: #### E RUR #### [facility] [address] [place] [address] Dr. Sean Huynh Ketones Ql (U) Negative Normal NEGATIVE [facility] Comment on above: Performed By: #### E RUR #### [facility] [address] [place] [address] Dr. Sean Huynh LEUKOCYTES Negative Normal NEGATIVE [facility] Comment on above: Performed By: #### E RUR #### [facility] [address] [place] [address] Dr. Sean Huynh Nitrite Ql (U) Negative Normal NEGATIVE [facility] Comment on above: Performed By: #### E RUR #### [facility] [address] [place] [address] Dr. Sean Huynh pH (U) 7.0 [pH] Normal 5-[address] [facility] Comment on above: Performed By: #### E RUR #### [facility] [address] [place] [address] Dr. Sean Huynh SPEC GRAVITY 1.015 Normal 1.005-<=1.025 [facility] [place] [facility] Comment on above: Performed By: #### E RUR #### [facility] [address] [place] [address] Dr. Sean Huynh UA PROTEIN Negative Normal NEGATIVE/ TRACE [facility] Comment on above: Performed By: #### E RUR #### [facility] [address] [place] [address] Dr. Sean Huynh UR MICRO IND NOT INDICATED Normal [facility] Comment on above: Performed By: #### E RUR #### [facility] [address] [place] [address] Dr. Sean Huynh Urobilinogen Qn (U) 0.2 {Soumya'U}/dL Normal 0.2 - 1. [address] [facility] Comment on above: Performed By: #### E RUR #### [facility] [address] [place] [address] Dr. Sean Huynh PROF 14(COMP METB)on 022 Albumin [Mass/Vol] 4.0 g/dL Normal 3.4-5.0 [facility] Comment on above: Performed By: #### C MP #### [facility] [address] [place] [address] Dr. Sean Huynh Albumin/Globulin [Mass ratio] 1.0 {ratio} Normal [facility] Comment on above: Performed By: #### C MP #### [facility] [address] [place] [address] Dr. Sean Huynh ALP [Catalytic activity/Vol] 100 U/L Normal 46-[address] [facility] Comment on above: Performed By: #### C MP #### [facility] [address] [place] [address] Dr. Sean Huynh ALT [Catalytic activity/Vol] 27 U/L Normal 14-[address] [facility] Comment on above: Performed By: #### C MP #### [facility] [address] [place] [address] Dr. Sean Huynh Anion gap [Moles/Vol] 14.4 mmol/L Normal [facility] Comment on above: Performed By: #### C MP #### [facility] [address] [place] [address] Dr. Sean Huynh AST [Catalytic activity/Vol] 17 U/L Normal 15-[address] [facility] Comment on above: Performed By: #### C MP #### [facility] [address] [place] [address] Dr. Sean Huynh Bilirubin [Mass/Vol] 0.3 mg/dL Normal 0.2-1.[address] [facility] Comment on above: Performed By: #### C MP #### [facility] [address] [place] [address] Dr. Sean Huynh Calcium [Mass/Vol] 9.2 mg/dL Normal 8.5-10.[address] [facility] Comment on above: Performed By: #### C MP #### [facility] [address] [place] [address] Dr. Sean Huynh Chloride [Moles/Vol] 102 mmol/L Normal 98-[address] [facility] Comment on above: Performed By: #### C MP #### [facility] [address] [address] [address] Sean Huynh CO2 [Moles/Vol] 25.9 mmol/L Normal 21.0-32.0 [facility] Comment on above: Performed By: #### C MP #### [facility] [address] [address] [address] Sean Huynh Creatinine [Mass/Vol] 0.80 mg/dL Normal 0.55-1.[address] [facility] Comment on above: Performed By: #### C MP #### [facility] [address] [place] [address] Dr. Sean Huynh EGFR-AF NIGERIAN >60 Normal >=60 [facility] Comment on above: Performed By: #### C MP #### [facility] [address] [address] [address] Sean Huynh EGFR-NON AF NIGERIAN >60 Normal >=[address] [facility] Comment on above: Performed By: #### C MP #### [facility] [address] [address] [address] Sean Huynh Globulin (S) [Mass/Vol] 4.0 g/dL Normal [facility] Comment on above: Performed By: #### C MP #### [facility] [address] [address] [address] Sean Huynh Glucose [Mass/Vol] 115 mg/dL Critically high 74-106 [facility] Comment on above: Performed By: #### C MP #### [facility] [address] [address] [address] Sean Huynh Potassium [Moles/Vol] 3.3 mmol/L Critically low 3.5-5.[address] [facility] Comment on above: Performed By: #### C MP #### [facility] [address] [place] [address] Dr. Sean Huynh Protein [Mass/Vol] 8.0 g/dL Normal 6.4-8.2 [facility] Comment on above: Performed By: #### C MP #### [facility] [address] [address] [address] Sean Huynh Sodium [Moles/Vol] 139 mmol/L Normal 136-[address] [facility] Comment on above: Performed By: #### C MP #### [facility] [address] [address] [address] Sean Huynh Urea nitrogen [Mass/Vol] 11.0 mg/dL Normal 7.0-18.[address] [facility] Comment on above: Performed By: #### C MP #### [facility] [address] [address] [address] Sean Huynh Urea nitrogen/Creatinine [Mass ratio] 13.8 mg/mg Normal [facility] Comment on above: Performed By: #### C MP #### [facility] [address] [address] [address] Sean Huynh Vital Signs Date Time Vital Sign Value Performing Clinician Facility 01-07-2025 14:29-0400 Body height 167.64 cm [facility] 01-07-2025 14:29-0400 Body mass index (BMI) [Ratio] 36.1 kg/m2 [facility] 01-07-2025 14:29-0400 Body temperature 97.6 [degF] [facility] 01-07-2025 14:29-0400 Body weight 101.6 kg [facility] 01-07-2025 14:29-0400 Diastolic blood pressure 88 mm[Hg] [facility] 01-07-2025 14:29-0400 Heart rate 76 /min [facility] 01-07-2025 14:29-0400 SaO2% (BldA) [Mass fraction] 98 % [facility] 01-07-2025 14:29-0400 Systolic blood pressure 138 mm[Hg] [facility] 10-14-2024 09:58-0500 Body mass index (BMI) [Ratio] 35.96 kg/m2 Jessica HIDALGO Work Phone: [facility] 10-14-2024 09:58-0500 Body weight 101.06 kg Jessica HIDALGO Work Phone: [facility] 10-14-2024 09:58-0500 Diastolic blood pressure 80 mm[Hg] Jessica HIDALGO Work Phone: [facility] 10-14-2024 09:58-0500 Systolic blood pressure 120 mm[Hg] Jessica HIDALGO Work Phone: [facility] 07-02-2024 09:41-0400 Body height 165.1 cm [facility] 07-02-2024 09:41-0400 Body mass index (BMI) [Ratio] 36.6 kg/m2 [facility] 07-02-2024 09:41-0400 Body temperature 98.1 [degF] [facility] 07-02-2024 09:41-0400 Body weight 99.79 kg [facility] 07-02-2024 09:41-0400 Diastolic blood pressure 96 mm[Hg] [facility] 07-02-2024 09:41-0400 Heart rate 75 /min [facility] 07-02-2024 09:41-0400 SaO2% (BldA) [Mass fraction] 98 % [facility] 07-02-2024 09:41-0400 Systolic blood pressure 144 mm[Hg] [facility] 12-05-2023 14:36-0400 Body height 165.1 cm [facility] 12-05-2023 14:36-0400 Body mass index (BMI) [Ratio] 36.2 kg/m2 [facility] 12-05-2023 14:36-0400 Body temperature 98.4 [degF] [facility] 12-05-2023 14:36-0400 Body weight 98.88 kg [facility] 12-05-2023 14:36-0400 Diastolic blood pressure 86 mm[Hg] [facility] 12-05-2023 14:36-0400 Heart rate 63 /min [facility] 12-05-2023 14:36-0400 Respiratory rate 18 /min [facility] 12-05-2023 14:36-0400 SaO2% (BldA) [Mass fraction] 97 % [facility] 12-05-2023 14:36-0400 Systolic blood pressure 134 mm[Hg] [facility] 10-11-2023 09:44-0500 Diastolic blood pressure 90 mm[Hg] Barb Lue [facility] 10-11-2023 09:44-0500 Mean blood pressure 111 mm[Hg] Barb Lue [facility] 10-11-2023 09:44-0500 Systolic blood pressure 152 mm[Hg] Barb Lue [facility] 10-11-2023 09:15-0500 Blood Pressure Location Barb Lue [facility] 10-11-2023 09:15-0500 Diastolic blood pressure 98 mm[Hg] Barb Lue [facility] 10-11-2023 09:15-0500 Heart rate 78 /min Barb Lue [facility] 10-11-2023 09:15-0500 Respiratory rate 16 /min Barb Lue [facility] 10-11-2023 09:15-0500 Systolic blood pressure 157 mm[Hg] Barb Lue [facility] 09-15-2023 08:10-0500 Body height 165.1 cm [facility] 09-15-2023 08:10-0500 Body weight 96.61 kg [facility] 09-15-2023 08:10-0500 Diastolic blood pressure 88 mm[Hg] [facility] 09-15-2023 08:10-0500 Systolic blood pressure 136 mm[Hg] [facility] 08-17-2023 12:30-0500 Body height 165.1 cm Mikey Maravilla Other [facility] 08-17-2023 12:30-0500 Body mass index (BMI) [Ratio] 36.02 kg/m2 Mikey Maravilla Other [facility] 08-17-2023 12:30-0500 Body temperature 99.3 [degF] Mikey Maravilla Other [facility] 08-17-2023 12:30-0500 Body weight 98.2 kg Mikey Maravilla Other [facility] 08-17-2023 12:30-0500 Diastolic blood pressure 100 mm[Hg] Mikey Maravilla Other [facility] 08-17-2023 12:30-0500 Respiratory rate 18 /min Mikey Maravilla Other [facility] 08-17-2023 12:30-0500 SaO2% (BldA) [Mass fraction] 98 % Mikey Maravilla Other [facility] 08-17-2023 12:30-0500 Systolic blood pressure 148 mm[Hg] Mikey Maravilla Other [facility] 06-27-2023 09:50-0400 Body height 165.1 cm Mikey Maravilla Other [facility] 06-27-2023 09:50-0400 Body mass index (BMI) [Ratio] 35.86 kg/m2 Mikey Maravilla Other [facility] 06-27-2023 09:50-0400 Body temperature 98 [degF] Mikey Maravilla Other [facility] 06-27-2023 09:50-0400 Body weight 97.75 kg Mikey Maravilla Other [facility] 06-27-2023 09:50-0400 Diastolic blood pressure 104 mm[Hg] Mikey Maravilla Other [facility] 06-27-2023 09:50-0400 Respiratory rate 18 /min Mikey Lozanowinnie Other [facility] Other 06-27-2023 09:50-0400 SaO2% (BldA) [Mass fraction] 98 % Mikey Lozanowinnie Other [facility] 06-27-2023 09:50-0400 Systolic blood pressure 160 mm[Hg] Mikey Maravilla Other [facility] Other Encounters Encounter Date Encounter Type Care Provider Facility Start: 01-07-2025 End: 01-07-2025 ambulatory [facility] Work Phone: Start: 01-07-2025 End: 01-07-2025 Patient encounter procedure [facility] [place] Work Phone: Start: 12-26-2024 End: 12-26-2024 Clinisync Result Encounter Jessica HIDALGO Work Phone: [facility] Unsolicited Start: 12-26-2024 End: 12-26-2024 Clinisync Result Encounter Jessica HIDALGO Work Phone: [facility] Unsolicited Start: 10-14-2024 End: 10-14-2024 Bamboo flowsheet Jessica HIDALGO Work Phone: [facility] Start: 10-14-2024 End: 10-18-2024 Bamboo flowsheet Jessica HIDALGO Work Phone: [facility] Start: 10-14-2024 End: 10-18-2024 Clinisync Result Encounter Jessica HIDALGO Work Phone: [facility] Unsolicited Start: 10-14-2024 End: 10-14-2024 Patient encounter procedure Jessica HIDALGO Work Phone: [facility] Start: 10-14-2024 End: 10-14-2024 Periodic preventive med est patient 40-64yrs Jessica HIDALGO Work Phone: [facility] Comment on above: Well woman exam with routine gynecological exam; Breast cancer screening by mammogram Start: 10-14-2024 Non-patient / Non-visit [facility] Work Phone: Start: 10-14-2024 End: 10-14-2024 ambulatory JESSICA ROBLES Not Available Start: 09-13-2024 End: 09-13-2024 ambulatory Mikey Maravilla Facility:[facility] Start: 07-02-2024 End: 07-02-2024 ambulatory [facility] Work Phone: Start: 07-02-2024 End: 07-02-2024 Encounter for general adult medical examination without abnormal findings [facility] Start: 07-02-2024 End: 07-02-2024 Patient encounter procedure [facility] [place] Work Phone: Start: 06-24-2024 Non-patient / Non-visit [facility] [place] Work Phone: Start: 04-15-2024 End: 04-15-2024 ambulatory [facility] Work Phone: Start: 04-15-2024 End: 04-15-2024 Patient encounter procedure [facility] Jessica Work Phone: Start: 12-05-2023 End: 12-05-2023 ambulatory [facility] Work Phone: Start: 12-05-2023 End: 12-05-2023 Patient encounter procedure [facility] Jessica Work Phone: Start: 11-27-2023 Non-patient / Non-visit [facility] [place] Work Phone: Start: 10-23-2023 End: 10-24-2023 ambulatory Barb M. Lue Facility[facility] Start: 10-23-2023 End: 10-23-2023 Patient encounter procedure Barb Mathews. Lorie [facility] Start: 10-11-2023 End: 10-12-2023 ambulatory Barb M. Lue Facility:[facility] Start: 10-11-2023 End: 10-11-2023 Patient encounter procedure Barb Mathews. Koffi [facility] Start: 10-05-2023 End: 10-05-2023 ambulatory Mikey Maravilla Other [facility] Start: 10-05-2023 Telephone encounter Mikey Maravilla [facility] Start: 09-29-2023 ambulatory Barb Lue Facility:[facility] Start: 09-15-2023 End: 09-15-2023 Patient encounter procedure [facility] Jessica Work Phone: Start: 08-28-2023 ambulatory Barb Lue Facility:[facility] [place] Start: 08-17-2023 End: 08-17-2023 ambulatory Mikey Maravilla Other [facility] Start: 08-17-2023 Office outpatient vi sit 25 minutes Mikey Maravilla [facility] Start: 07-14-2023 End: 07-14-2023 ambulatory Mikey Maravilla Other [facility] Start: 07-14-2023 Telephone encounter Mikey Maravilla [facility] Start: 06-27-2023 End: 06-27-2023 ambulatory Mikey Maravilla Other [facility] Start: 06-27-2023 Encounter for genera l adult medical examination without abnormal findings Mikey Maravilla [facility] Start: 06-27-2023 Periodic preventive med est patient 40-64yrs Mikey Maravilla [facility] Start: 12-01-2022 End: 12-02-[address] ORLANDO AKINS . Facility: Start: 10-07-2022 End: 10-07-[address] ORLANDO AKINS . Facility: Start: 03-02-2022 End: 03-03-[address] MIKEY MARAVILLA Facility: Start: 07-04-2017 End: 07-05-2017 Ambulatory DEFAULT PHYSICIAN Facility[facility] Procedures Date Procedure Procedure Detail Performing Clinician Start: 12-26-2024 MM TOMOSYNTHESIS SCR EENING BI Jessica HIDALGO Work Phone: Start: 12-26-2024 Mammography Jessica HIDALGO Work Phone: Start: 10-14-2024 IGP,APTIMA HPV,AGE GDLN Jessica HIDALGO Work Phone: Start: 10-14-2024 Microscopic observat ion [Identifier] in Cervix by Cyto stain Jessica HIDALGO Work Phone: Start: 12-14-2023 Mammography Jessica HIDALGO Work Phone: Start: 10-12-2023 Microscopic observat ion [Identifier] in Cervix by Cyto stain Jessica HIDALGO Work Phone: Start: 10-12-2023 Cytp cerv/vag auto t hin layer prep mnl screen [facility] Nurse Hysterectomy Barb Rain Plan of Treatment Date Care Activity Detail Author Start: 10-14-2027 Screening for malign ant neoplasm of cervix [facility] Start: 10-12-2026 Screening for malign ant neoplasm of cervix [facility] Start: 10-20-2025 End: 10-20-2025 Patient encounter procedure 10/20/2025 10:00 AM EST Office Visit [facility] [address] [place] [address] Jessica Robles PA [address] [place] [address] [facility] Start: 12-13-2024 Screening for malign ant neoplasm of breast Mammogram [facility] Start: 10-14-2024 End: 12-12-2025 MG Breast - bilateral Screening Bilateral screening mammogram Imaging Routine Breast cancer screening by mammogram Expected: 10/14/2024 (Approximate), Expires: 12/12/2025 [facility] Work Phone: Comment on above: Expected: 10/14/2024 (Approximate), Expires: 12/12/2025 Start: 10-14-2024 End: 10-14-2024 Patient encounter procedure 10/14/2024 10:00 AM EST Office Visit [facility] [address] [place] [address] Jessica Robles PA [address] [place] [address] Arrived [facility] Comment on above: Arrived Start: 07-02-2024 Patient referral [facility] Work Phone: Start: 05-19-2024 Influenza vaccination Influenza Vacc ine (#1) [facility] Start: 2004 Screening for malign ant neoplasm of cervix [facility] Start: 12-24-1995 Screening for malign ant neoplasm of cervix Pap Smear [facility] Start: 1974 Screening for malign ant neoplasm of colon [facility] Comprehensive metabo lic 1999 panel - Serum or Plasma [facility] Comprehensive metabo lic 1999 panel - Serum or Plasma [facility] Comprehensive metabo lic 1999 panel - Serum or Plasma [facility] CT Chest WO contrast [facility] Insulin [Units/volum e] in Serum or Plasma [facility] Insulin [Units/volum e] in Serum or Plasma [facility] Patient referral [facility] Work Phone: THIN PREP TIS PAP AN D HR HPV DNA THIN PREP TIS PAP AND HR HPV DNA Pathology and Cytology Routine Well woman exam with routine gynecological exam Ordered: 10/14/2024 [facility] Comment on above: Ordered: 10/14/2024 [facility] Immunizations Immunization Date Immunization Notes Care Provider Fa cility 07-21-2024 Influenza, injectabl e, Madin Muddy Canine Kidney, preservative free, quadrivalent [facility] 07-21-2024 influenza virus vaccine, unspecified formulation Jessica HIDALGO Work Phone: [facility] 07-08-2023 Flu Shot - Documentation Purposes Only Mikey Maravilla Other [facility] 07-08-2023 influenza virus vaccine, unspecified formulation Barb Rain [facility] 07-08-2023 Influenza, injectabl e, Madin Muddy Canine Kidney, preservative free, quadrivalent [facility] 07-09-2022 influenza virus vaccine, unspecified formulation Barb Lue [facility] 07-09-2022 Influenza, injectabl e, Madin Muddy Canine Kidney, preservative free, quadrivalent [facility] 01-21-2021 COVID-19 Vaccine Moderna - Documentation Purposes Only Mikey Maravilla Other [facility] Comment on above: Result Comment: 2023: 40 12-24-2020 COVID-19 Vaccine Moderna - Documentation Purposes Only Mikey Maravilla Other [facility] Comment on above: Result Comment: 2023: 39 07-17-2020 influenza virus vaccine, unspecified formulation Barb Lugeovany [facility] 07-17-2020 Influenza, injectabl e, Madin Muddy Canine Kidney, preservative free, quadrivalent [facility] 07-17-2020 influenza, seasonal, injectable Mikey Girvin Other [facility] 07-13-2019 influenza virus vaccine, unspecified formulation Barb Lue [facility] 07-13-2019 Influenza, injectabl e, Madin Muddy Canine Kidney, preservative free, quadrivalent [facility] 07-16-2018 influenza, seasonal, injectable Mikey Girvin Other [facility] 07-14-2018 Influenza, injectabl e, Madin Agnes Canine Kidney, preservative free, quadrivalent [facility] 07-15-2017 influenza virus vaccine, unspecified formulation Barb Lue [facility] 07-15-2017 influenza, injectabl e, quadrivalent, preservative free [facility] 07-15-2017 influenza, seasonal, injectable Mikey Girvin Other [facility] 07-16-2016 influenza virus vaccine, unspecified formulation Barb Lue [facility] 07-16-2016 influenza, seasonal, injectable Mikey Girvin Other [facility] 06-27-2015 influenza, injectabl e, madin agnes canine kidney, preservative free [facility] 07-21-2014 influenza virus vaccine, unspecified formulation Barb Lue [facility] 07-21-2014 influenza, injectabl e, quadrivalent, contains preservative [facility] 07-05-2013 influenza, seasonal, injectable, preservative free Mikey Girwinnie Other [facility] 07-05-2012 influenza, seasonal, injectable, preservative free Mikey Girvin Other [facility] Payers Date Payer Category Payer Private Health Insurance [employer] [id number] 2023 Unknown [id number] 1975 Unknown [id number] 1974 Unknown [id number] 1974 Unknown [id number] 1974 Unknown [id number] 1974 Unknown [id number] 1974 Unknown [id number] 1959 Unknown [id number] [id number] Social History Date Type Detail Facility Unknown if ever smoked [facility] Start: 09-14-2023 End: 10-14-2024 Sex Assigned At [facility] Start: 10-11-2023 End: 09-13-2024 Tobacco smoking status Never smoked tobacco (finding) [facility] Tobacco smoking status Never [facility] Start: 1975 Sex Assigned At Female [facility] Start: 08-31-2023 Tobacco use and exposure Smokeless tobacco non-user [facility] Start: 10-12-2023 End: 10-14-2024 Alcoholic beverage intake [facility] Start: 09-14-2023 End: 10-14-2024 History of Social function [facility] Start: 1975 Sex assigned at Not on file [facility] Start: 01-07-2025 Sex Female (finding) [facility] NEGATED: Highlighted rowStart: NINF History of tobacco use Passive smoker [facility] Functional Status Date Assessment Result Facility 10-23-2023 Functional Status N/A [facility] 10-11-2023 Functional Status N/A [facility] Clinical Notes 06-27-2023 to 12-17-2024 Note Date & Type Note Facility 12-17-2024 Evaluation note Diagnosis Onset Date Resolution Allergies acute January 07 2:42pm Elevated blood pressure reading acute January 07, 2025 2:42pm Hyperglycemia acute January 07, 2025 2:42pm Hyperlipidemia acute December 2:42pm Multiple pulmonary nodules acute January 07, 2025 2:42pm [facility] Work Phone: 1(721) 204-158801-27-2025 History of Present illness Narrative* ROCKY Rascon - 10/14/2024 10:00 AM EST Reason for Appointment: Patient ID: Flor Griggs [...] nursing note reviewed. Exam conducted with a retail center receptionist present. Vitals: Estimated body mass index is [...] behalf of: ROCKY Rascon documented in this [facility] [id number] Hospital Discharge instructionsAmbulatory Orders* Referral to Gastroenterology Time Frame: 07/02/24, Location: None Selected [facility] Work Phone: 1(591) 325-571507-29-2024 Evaluation note* Author Mikey Maravilla [facility] Authored April 15, 2024 10:3 8am The above note written by __ _Lexi Abel____ acting as human recorder, note dictated by Dr. Khan .I performed the above HPI, ROS, and Examination. I formulated and dictated the treatment plan and was present for entire encounter. Mikey Maravilla D.O. [facility] Work Phone: 1(846) 890-399102-05-2024 Note [id number] 10-23-2023 NoteCystoscopy ? Voiding after the procedure: [...] if you have a fever over 100 degrees.[facility] 10-23-2023 Hospital Discharge instructions Patient Education [...] Address:Unknown When: Unknown Comments:Call for any problems. [facility]01-24-2024 NoteChief Complaint Referral *Hematuria HPI Staff Evaluation [...] analysis, continued surveillance wit (more content not included)...[facility]Result Comment: Electronically Signed By: [...] include: ?8 oz (237 mL) of milk, hggtuos-vixjuhrbibox-plffk milk, and calcium- fortifiedfruit juice. Calcium-fortified means [...] ?Spinach (cooked), rhubarb, beets, sweet potatoes, and Somali chard. ?Peanuts. ?Potato chips, italian fries, and baked potatoes with skin on. ?Nuts and nut products. ?Chocolate. If you regularly take a diuretic medicine, make sure to eat at least 1 or 2 servings of fruits or vegetables that are high in potassium each day. These include: ?Avocado. ?Banana. ?[place], prune, carrot, or tomato juice. ?Baked potato. [...] magnesium, fish oil, or vitamin B6. Take fsjb-ddm-pftqsir and prescription medicines only as told by [...] Casseroles. Pizza. Lasagna. Frozen meals. Potato chips. Urdu fries. The items listed above may not [...] provider. Document Revised: 12/15/2022 Document Reviewed: 12/15/2022 [employer] Patient Education 2022 [employer] Follow Up Care 08/28/2023 13:50:06 With:Koffi PADRON, KARTIK Hayes, URO Address: When: Unknown Comments:Schedule cysto [facility] Jessica 11-30-2023 Evaluation note* Encounter Date Diagnosis Assessment [...] that the soil and dirt here in [place] is very dirty. She [place] up [place] farm and he felt this explained her nodule and told her that it was calcified and she was fine . She does not need to return to see him unless needed. Jul, Other terminal gauger (current) drug therapy (ICD-10 - Z79.899) Jul, Other Magnesium level was 1.9. [facility] 10-10-2023 Evaluation note* Encounter Date Diagnosis [...] contrast and then follow up with a jacker feeder. She has never been a smoker. Will [...] was seen in the office today 06-27-23. [facility] Evaluation + Plan note Future Appointments Appointment Date:10/23/2023 09:45:00 AM Scheduled Provider: Location:[facility] Appointment Type:Urology FT [facility] evaluation noteNo InformationNort Wangluotianxia Other Evaluation note* Diagnosis Onset Date Resolution Status Elevated blood pressure reading acute Hematuria acute Hyperglycemia acute Hyperlipidemia acute Plantar fasciitis acute [facility] Work Phone: Evaluation note* Diagnosis Onset Date Resolution Status Acute sinusitis acute [facility] Work Phone: Evaluation note* Diagnosis Well [...] f or PCP) Surgical History c section 2005 Surgical History annual pap - this wa s a repeat - neg results - Dr Akins 05/20/16 Surgical History Mammogram 05/2015-06/17/16 Surgical History EGD - Dr Sequeira 11/2016 Surgical History hysterectomy abdomin al / Dr. Akins / still has b/l ovaries 10-07-2019 Hospitalization History No know Hospitalization history [facility] Hospital course Narrative No data available for this section [facility] progress note No data available for this section [facility] Summary Purpose Family History Relationship Condition Age at Onset Recorded Date/T yesenia Not Specified Hypertension Unknown Relationship Condition Age at Onset Recorded Date/T eysenia mother Hypertension Unknown Relationship Condition Age at Onset Recorded Date/T yesenia mother Hypertension Unknown brother Malignant neoplasm 43 Relationship Condition Age at Onset Recorded Date/T yesenia mother Hypertension Unknown brother Malignant neoplasm of liver Unknown Malignant neoplasm of colon Unknown Advance Directives Advance Directive Response Recorded Date/ Time Advance Directives No October 19, 2023 9:22am Reason for Referral Reason appt pt needs cons ult to discuss abnormal findings on CT scan 03/02/22 and will have repeat CT of chest done Diagnosis 1 Lung nodule seen on imaging study (R91.1) Referral Organization [facility] Referring Provider First Name Mikey Referring Provider Last Name Renita Referring Provider Specialty Family Prac dragan Referred Organization [facility] Referred Provider Corby Reyes Referred Address [address], [place],[address] Referred Provider Specialty Pulmonary Di seases Referral Priority Routine General Notes Nieves Barry 06/27/2023 11:00:05 AM > referral faxed thru [facility] with visit note, CT chest from 2021 and insurance card. pt understands she will be contacted to schedule this appt. Reason appt pt needs cons ult to evaluate hematuria Diagnosis 1 Hematuria (R31.9) Referral Organization [facility] Referring Provider First Name Mikey Referring Provider Last Name Renita Referring Provider Specialty Family Prac dragan Referred Organization [facility] [employer] Referred Provider BARB RAIN Referred Address [address],[place],[address] Referred Provider Specialty Urology Referral Priority Routine [...] requiring screening colonoscopy Hyperglycemia Hyperlipidemia Wellness examination Chief Complaint Admit Date review labs January 07, 2025 2:4 2pm Reason for Visit Admit Date Allergies January 07, 2025 2:4 2pm Elevated blood pressure reading January 072024 2:42pm Hyperglycemia January 07, 2025 2:4 2pm Hyperlipidemia January 07, 2025 2:4 2pm Multiple pulmonary nodules January 07 2:42pm Additional Source Comments INFORMATION SOURCE (unrecogn ized section and content) DATE CREATED AUTHOR 03/13/2018 [facility] DATE CREATED AUTHOR AUTHOR'S ORGANIZ ATION 12/11/2022 [facility] DATE CREATED AUTHOR AUTHOR'S ORGANIZ ATION 10/24/2023 [facility] DATE CREATED AUTHOR AUTHOR'S ORGANIZ ATION 09/21/2024 [facility] DATE CREATED AUTHOR AUTHOR'S ORGANIZ ATION 10/14/2024 [facility] EPIC REASON FOR VISIT (unrecogniz ed section and content) Reason Comments Well Women Visit Patient Care team informatio n (unrecognized section and content) Team Status: Active Member Role Status Nena Maravilla DO Primary Care Provider Active Team Status: Active Member Role Status Nena Maravilla DO Primary Care Provider Active S tart: October 14, 2024 Jessica Robles PA-C Attending Provider Active Start : October 14, 2024 Team Status: Inactive Member Role Status Nena Maravilla DO Primary Care Provide r, Attending Provider Active Start: January 07, 2025 End: January 07, 2025 Team Status: Active Member Role Status Nena Maravilla DO Primary Care Provider Active Team Status: Inactive Member Role Status Nena Maravilla DO Attending Provider Active Star t: September 15, 2023 End: September 15, 2023 Team Status: Active Member Role Status Nena Maravilla DO Primary Care Provide r, Attending Provider Active Start: November 27, 2023 Team Status: Inactive Member Role Status Nena Maravilla DO Primary Care Provide r, Attending [...] July 02, 2024 End: July 02, 2024 Room Service Runner Relationship Specialty Start Date End Date Mikey Maravilla MD [address] [place] [address] PCP - General Family Medicine 08/31/23 Room Service Runner Relationship Specialty Start Date End Date Mikey Maravilla MD [address] [place] [address] PCP - General Family Medicine 08/31/23 Team Status: Active Member Role Status Dates Mikey Renita Primary Care Provider Active S tart: October 14, 2024 Jessica Robles PA-C Attending Provider Active Start : October 14, 2024 Team Status: Inactive Member Role Status Dates Mikey Maravilla DO Primary Care Provide r, Attending Provider Active Start: January 07, 2025 End: January 07, 2025 Goals (unrecognized section and content) Goals may [...] BE BASED ON THE PRIMARY CLINICAL RECORDS. [employer] provides no warranty or guarantee of the accuracy or completeness of information in this document.
--- NOTE | 2025-01-30 07:40 | CT_ITS ---
The [address] [address] Patient Name: BENJAMÍN GRIGGS MRN: [id number] date: 1975 Sex: F Assigned Patient Location: CT Current Patient Location: CT Accession/Order Number: [id number] Exam Date: 01/30/2025 08:56 Report Date: 01/30/2025 09:04 At the request of: MIKEY MARAVILLA Procedure: CT chest wo con CT chest wo con 01/30/2025 7:58 AM SIGN AND SYMPTOMS: ^Multiple Pulmonary Nodules, follow-up TECHNIQUE: Multidetector CT axial slices of the chest were obtained without IV contrast. Multiplanar reformats were performed and viewed on a separate workstation and reviewed to further define anatomy and possible pathology. CT was performed with one or more of the following dose reduction techniques: Automated exposure control, adjustment of the mA and/or kV according to patient size, or use of iterative reconstruction technique. COMPARISON: 07/11/2023. FINDINGS: Lower neck: Thyroid gland within normal limits, no supraclavicle adenopathy. Vessels: Filling the Atherosclerotic changes are noted thoracic aorta. Mediastinum and Christine: Within normal limits. Heart: Normal size. No pericardial effusion. Airways: Within normal limits Lungs: There is a 1.4 cm calcified granuloma in the left lower lobe adjacent to the aorta which is unchanged. There is an unchanged pleural-based 4 mm noncalcified nodule in the left lower lobe laterally on axial image 78 which is unchanged. There is a noncalcified nodule measuring 4 mm in greatest dimension in the left lower lobe posteriorly on axial image 72. There is a slightly larger 4 mm noncalcified nodule in the left upper lobe laterally on axial image 29. There is a pleural-based noncalcified nodule in the right upper lobe laterally on axial image 35 which is unchanged. Additional smaller but unchanged calcified and noncalcified pulmonary nodules are redemonstrated bilaterally. Pleura: Within normal limits. Chest Wall: Within normal limits. Upper Abdomen: Within normal limits. Bones: Degenerative changes are present in the thoracic spine. CT/CT chest wo con IMPRESSION: Multiple predominantly stable calcified and noncalcified pulmonary nodules. No new pulmonary nodules. No acute cardiopulmonary pathology. Impression dictated by: Trevor Velásquez M.D. 01/30/2025 9:04 AM Dictation Location: [place] [address] Electronically authenticated by: [id number] Y Date: 01/30/2025 09:04
== END 2025-01-30 07:36 | disposition home or self-care (01) ==
LOC: CT 07:35
PROVIDERS: PCP Family Medicine; Visit Provider Family Medicine
DX: R91.8 Other nonspecific abnormal finding of lung field (principal)
CPT/HCPCS: 71250